=== PATIENT | male | born 1955 | race Caucasian/White ===

== ENCOUNTER 2019-10-25 10:56 | Outpatient (CLI) | payer MEDICARE, OTHER, SELFPAY ==
[2019-10-25 11:48] LABS: Basophils % 0.4 %; Eosinophils % 1.5 %; Hematocrit 36.2 % (42.0-52.0); Hemoglobin 11.9 g/dL (11.7-16.6); Lymphocytes # 0.6 10^3/uL (0.8-4.8); Lymphocytes % 23.1 %; Mean Corpuscular HGB Conc 32.9 g/dL (30.0-36.0); Mean Corpuscular Hemoglobin 31.7 pg (28.0-34.0); Mean Corpuscular Volume 96.5 fL (80-94); Mean Platelet Volume 12.7 fL (7.4-10.4); Monocytes # 0.3 10^3/uL (0.2-0.9); Monocytes % 10.8 %; Neutrophils # 1.7 10^3/uL (1.8-7.7); Neutrophils % 63.8 %; Nucleated Red Blood Cells % 0 %; Platelet Count 82 10^3/cmm (130-400); Red Blood Count 3.75 10^6/uL (4.1-5.3); Red Cell Distribution Width 14.6 % (12.1-15.1); White Blood Count 2.6 10^3/uL (4.0-10.0)
[2019-10-25 12:29] LABS: Alanine Aminotransferase 10 U/L (0-41); Albumin Level 3.7 g/dL (3.5-5.2); Alkaline Phosphatase 87 IU/L (40-130); Anion Gap 16.7 (5-19); Aspartate Amino Transferase 28 U/L (0-40); Blood Urea Nitrogen 24 mg/dL (8-23); Calcium 9.4 mg/dL (8.5-10.5); Carbon Dioxide 23 mmol/L (22-29); Chloride 103 mmol/L (98-107); Globulin 2.7 g/dL (1.3-4.6); Glomerular Filtration Rate 43.6 mL/min (90-130); Glucose 130 mg/dL (65-115); Potassium 4.7 mmol/L (3.5-5.1); Sodium 138 mmol/L (136-145); Total Bilirubin 0.2 mg/dL (0.15-1.2); Total Protein 6.4 g/dL (6.6-8.7)
--- NOTE | 2019-10-25 16:40 | ONC FU_ITS ---
Dr. Samuel Patient Follow-Up Note Patient: Memo Sun Unit #: [id number]: [id number] Dicatated By: Oneal Samuel M.D.Date of Visit:Oct 25, 2019 Onc Med Follow-up/Prog Note Chief Complaint: Myeloma. History of Present Illness: This is a 64 year-old man with kappa light chain myeloma. He had presented in March 2016 with increasing pain in the lower back over a period of at least several months. He was evaluated with MRI of the lumbar spine on 04/08/2016. It showed posterior retropulsion of the L4 vertebral body by 6 mm. This appeared to be related to a pathologic fracture and soft tissue mass predominantly in the mid and posterior vertebral body. There was soft tissue in the ventral epidural space causing deformity and flattening of the ventral thecal sac. It appeared to extend over a length of 4.5 cm posterior to the L4 vertebral body with marked posterior displacement of the thecal sac. Tumor was noted to extend into the proximal pedicles bilaterally. 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 He was seen by Dr. Lunsford, and subsequent evaluation with CT of the lumbar spine showed virtual complete destruction of the L4 vertebral body. There was associated soft tissue mass extending posteriorly from the vertebral body into the ventral aspect of the epidural space compressing the thecal sac. This was felt to most likely represent neoplastic/metastatic process. His laboratory studies from 03/25/2016 included a CBC which showed hemoglobin decreased to 10.1 g with white blood cell count 9700 and platelet count 395,000. The red cell indices were normal. Chem profile showed a significantly elevated BUN and creatinine at 34 and 2.6 mg/dL with calculated GFR 25 mL/m. The alkaline phosphatase and the liver enzymes were normal. Albumin was normal at 3.7 g/dL with calculated serum globulin also normal at 3.3 g/dL. Calcium also normal at 9.7 mg/dL. I had seen him initially on 04/24/2016. CBC at that point showed hemoglobin down to 9.8 g with white blood cell count 12,700 and platelet count 418,000. BUN was up to 43 with creatinine 2.8 mg/dL. Protein electrophoresis showed a monoclonal paraprotein identified as free kappa light chain quantitating at 0.24 g/dL. The free light chain assay showed elevated kappa light chain at 10,960 mg/L with free lambda light chain 7.94 mg/L and elevated kappa/lambda ratio at 1380. The 24-hour urine showed a total protein excretion of 5994 mg, 93.7% of which was free kappa light chain. He underwent bone marrow aspiration/biopsy on 05/03/2016. The cellularity was 60%. Plasma cells were increased at 18%, and they were noted to exhibit atypical features. Iron stores were noted to be absent. The standard chromosome analysis was normal. The FISH panel for myeloma showed evidence of trisomy 5 and monosomy 13 (13q deletion). The findings were consistent with multiple myeloma. At that point, he had noted improvement in his back pain on low-dose steroid therapy. He was seen by Dr. Key for radiation to the area of involvement in the lumbar spine. He was given 4 days of high-dose dexamethasone. He completed radiation therapy on 05/23/2016 to a total dose of 2,400 cGy. During that time further laboratory analysis revealed a borderline low B12 level and elevated methylmalonic acid and homocysteine levels, consistent with B12 deficiency. He also had an episode of unconsciousness and possible seizure on 05/18/16. He began systemic therapy with cyclophosphamide, Velcade, and dexamethasone on 05/28/2016, and he also started B12 replacement. When he returned for his day 8 treatment his hemoglobin had dropped to 7.7 g with white blood cell count normal at 5100. The platelet count had dropped to 142,000. His creatinine had increased from 2.3 to 3.7 mg/dL and his serum calcium dropped to 7.5 mg/dL with albumin decreased to 2.7 g/dL. Further evaluation showed stable uric acid level at 7.4 mg/dL and normal phosphorus at 3.3 mg/dL. Nonetheless, it did appear to most likely represent some form of tumor lysis syndrome. He was given aggressive outpatient IV hydration. I did opt to hold day 8 cyclophosphamide, but he received both day 8 and day 11 Velcade and dexamethasone. His renal function stabilized, but he did require transfusion of 2 units of packed red blood cells. He began cycle 2 on 06/17/2016, and he was able to complete day 4 Velcade on 06/20/2016. At day 8 I did opt to put his treatment on hold due to declining performance status. However, repeat protein electrophoresis studies prior to starting the second cycle did show a significant decrease in the kappa free light chain, to 1244 mg/L compared to a pretreatment level of 10,960 mg/L. Repeat lumbar spine MRI performed on 07/23/16 showed unchanged L4 compression fracture, but with essentially complete resolution of the L4 posterior vertebral body cortex extension into the central canal and interval resolution of previously noted markedly severe L4-L5 central canal stenosis. There was residual mild central canal stenosis related to L4 compression fracture with posterior-superior vertebral body extension the central canal. He was seen for follow-up at [facility] on 07/30/2016. It was recommended that he complete 2 additional doses of Velcade prior to mobilization for stem cell transplant. These were administered by subcutaneous injection on 08/07/2016 and on 08/16/2016. He then returned to [facility] and he underwent high-dose melphalan with autologous stem cell transplant on 09/13/2016. He indicates that he was in the hospital for 15 days. His treatment was complicated by hypertension. I had seen him for a followup visit on 10/30/2016. He was still very weak following the transplant procedure, and he also complained of very poor appetite. At that point he was beginning to feel better. He was seen at [facility] on 12/20/2016 for his day 100 evaluation. At that point he restarted treatment with Revlimid and dexamethasone in combination with ixazomib. He then presented to the emergency room on 01/20/2017 with weakness and loose stools. He was found to have acute renal failure with creatinine increased to 2.7 mg/dL. His CBC showed hemoglobin adequate at 11.1 g with white blood cell count 3800 and platelet count 39,000. The ANC was 2900. He was admitted to the hospital. With hydration his renal function improved, but there was further decline in his blood counts with his ANC dropping to 400, hemoglobin to 8.1 g, and platelet count to 14,000. He did require platelet pheresis, but he recovered uneventfully. On his subsequent follow-up at [facility] he continued his treatment, but with omission of Revlimid and with a decrease in the ixazomib dosage to 3 mg weekly. As of March 2017 he completed his 4th cycle of treatment. Following his visit there in April 2017, he began maintenance ixazomib with the dosage increased to 4 mg weekly. His repeat bone marrow biopsy at that time showed no increase in plasma cells. His medical history is significant for pre-existing hypertension, and he had no other prior medical illnesses. He had smoked in the past, but he quit more than 25 years ago. INTERIM HISTORY: On 10/25/2017 he was admitted to the hospital with weakness and fever. There was no specific source determined other than he had some evidence of cellulitis in his right arm. He improved on empiric antibiotic coverage with Cipro/vancomycin, and he was discharged home on Augmentin. He then continued his maintenance therapy with weekly ixazomib on a 3 weeks on/1 week off schedule. He is seen for a scheduled visit. His main complaint is that a few weeks ago he had fallen on a ramp coming out of his house, apparently having slipped on the ice. He has no recollection of the event. He was taken to the [facility] emergency room, where he was treated and released. He had a follow-up head CT scan a week later, and that apparently was negative. He also complains that he has had pretty severe diarrhea with each of his last 3 doses of ixazomib. On 1 occasion he also had nausea/vomiting. He did try taking Imodium AD, but it helped only a little. He has not had much activity lately. ECOG score is 2. His appetite is about the same. His weight is down a few pounds. He has not had fever or night sweats. He has ongoing problems with his left ear. He does not complain of shortness of breath, cough, or chest pain. He has no complaints. He has no significant joint or bone pain. He is not having headache or dizziness. He still has numbness/tingling in his feet. Medications: Acyclovir 1 (400 mg) Tablet Oral b.i.d., Ixazomib Citrate (4 mg) Capsule Oral Take as Directed, Ondansetron HCl 1 (8 mg) Tablet Oral PRN Allergies: Bactrim Review of Systems: Constitutional - His activity recently has been limited. His appetite is OK. His weight is down a few pounds. No fever, chills, hot flashes, or night sweats. ECOG score is 2, ENMT - He has sinus congestion/drainage. No mouth sores. No sore throat or difficulty swallowing. He has trouble with his left ear, Hematologic/Lymphatic - He bruises easily, Respiratory - No shortness of breath. No cough. No pleuritic pain or hemoptysis, Cardiovascular - No angina pain. No palpitations, Gastrointestinal - No heartburn or acid reflux. He has had pretty severe diarrhea with each of his last 3 doses of ixazomib. No blood in the stool or black stools, Genitourinary (M) - No dysuria or hematuria. No urinary frequency. No urgency or incontinence, Musculoskeletal - No joint or bone pain, Integumentary - No skin complications, Neurologic - No headache or dizziness. He has numbness and tingling in his feet, Psychiatric - No anxiety or depression. He does not sleep well at night. Vital Signs: Performed on Oct 25, 2019 12:49 Height - 71.00 in Weight - 159.6 lbs (LOW) BSA - 1.92 sq.m BMI - 22.26 Temperature - 97.9 F (LOW) Pulse - 70 /min Respiration - 18 /min BP - 121/76 mm(hg) O2 Sat - 100 % Pain - 0 Physical Examination: Constitutional - He still looks a little bit weak generally, Eyes - Sclerae nonicteric. Conjunctivae clear, ENMT - No lesions noted in the oral cavity, Hematologic/Lymphatic - No cervical, clavicular, or axillary adenopathy, Respiratory - Lungs sound clear, Cardiovascular - Heart rhythm is regular. There is no murmur, gallop, or rub noted, Abdomen - Soft. Liver and spleen are not enlarged. There is no abdominal mass or ascites noted and there is no inguinal adenopathy, Extremities - No edema, Neurologic - No focal neurologic deficits noted. Lab/Imaging: Test performed on Oct 25, 2019 11:30 Sodium 138 mmol/L Potassium 4.7 mmol/L Chloride 103 mmol/L CO2 23 mmol/L Anion Gap 16.7 BUN 24 mg/dL Creatinine 1.6 mg/dL Cr Clearance (Est) 47.8700 mL/min eGFR 43.6 mL/min Glucose 130 mg/dL Calcium 9.4 mg/dL Protein, Total 6.4 g/dL Albumin 3.7 g/dL Globulin 2.7 g/dL Bilirubin, Total 0.2 mg/dL ALT (SGPT) 10 U/L AST (SGOT) 28 U/L Alkaline Phosphatase 87 IU/L WBC 2.6 10 3/uL RBC 3.75 10 6/uL HGB 11.9 g/dL HCT 36.2 % MCV 96.5 fL MCH 31.7 pg MCHC 32.9 g/dL RDW 14.6 % Platelet Count 82 10 3/cmm MPV 12.7 fL Neutrophils 1.7 10 3/uL Lymphocytes 0.6 10 3/uL Monocytes 0.3 10 3/uL Eosinophils 0.0 10 3/uL Basophils 0.0 10 3/uL Neutrophil % 63.8 % Lymphocyte % 23.1 % Monocyte % 10.8 % Eosinophil % 1.5 % Basophils % 0.4 % Impression: 1. Patient with kappa light chain myeloma, stage III, initially diagnosed in April 2016. 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 He also had anemia and impaired renal function. Bone marrow aspiration/biopsy on 05/03/2016 showed 18% plasma cells with trisomy 5 and 13q deletion by FISH. 2. He received 4 days of high dose dexamethasone and he was given radiation to the lumbar spine, completed 05/23/2016 to 2400 cGy. 3. He also had evidence of B12 deficiency with low normal B12 level and elevated homocysteine and methylmalonic acid levels. 4. He had pre-existing hypertension. 5. He began systemic therapy with cyclophosphamide/Velcade/dexamethasone on 05/28/2016. His first cycle was complicated by an apparent tumor lysis syndrome which included worsening anemia and renal function together with hypocalcemia and hypoalbuminemia. His day 8 cyclophosphamide was withheld, and he did require transfusion of 2 U of packed red blood cells. 6. During subsequent follow-up he did show some improvement in his renal function, though it had not recovered to baseline. He was able to continue with cycle 2 of cyclophosphamide/Velcade/dexamethasone on 06/17/2016. His treatment was put on hold at day 8 of cycle 2 due to declining performance status. His repeat protein studies, though, did show a significant response to the chemotherapy. 7. He was given 2 additional doses of weekly Velcade, the second on 08/16/2016. He then returned to [facility] and he underwent high-dose melphalan/stem cell transplant on 09/13/2016. 8. He had a somewhat difficult and prolonged recovery following his stem cell transplant procedure. He was seen at [facility] for his day 100 follow-up visit on 12/20/2016. He then restarted treatment with Revlimid and dexamethasone in combination with ixazomib, apparently in the context of a clinical trial. His first cycle of treatment with the ixazamid, Revlimid, dexamethasone was complicated by grade 2 anemia, grade 4 neutropenia, and grade 3 thrombocytopenia, but without fever or bleeding. He also had diarrhea with dehydration and acute renal failure. His creatinine returned to baseline following IV hydration. He did receive a platelet pheresis. He had an uneventful recovery. He then continued treatment with omission of Revlimid and with decrease in his ixazomib dosage to 3 mg weekly. As of March 2017 he had completed 4 cycles of treatment. Following his visit at [facility] in April 2017 he began maintenance ixazomib with the dosage escalated to 4 mg weekly. In October 2017 he had a hospitalization with a febrile illness, possibly due to cellulitis. He recovered uneventfully. He has since then continued maintenance ixazomib administered weekly on a 3 weeks on/1 week off schedule. During follow-up he has remained mildly anemic and he has persistent chronic kidney disease. Overall, though, he has been doing well clinically with no obvious progression of the myeloma. However, with each of his last 3 doses of ixazomib he has had pretty severe diarrhea, and he had only limited benefit taking Imodium AD. He also has had a significant decline in his blood counts. He had a recent fall with head injury, but he seems to have had an uneventful recovery and his head CT was reportedly negative. Plan: He will continue his maintenance ixazomib, but I am going to check with [facility] regarding any recommendations for dose adjustment. He is due for follow-up there on 11/30/2019, and he will tentatively be scheduled for a 6-week interval return visit here. Signed By: Oneal Samuel M.D. <<Signature on File>>
[2019-10-25 17:23] LABS: Immunoglobulin IGA 93 mg/dL (70-400); Immunoglobulin IGG 894 mg/dL (700-1600)
[2019-10-25 17:40] LABS: Immunoglobulin IGM < 25 mg/dL (40-230)
== END 2019-10-25 10:57 | disposition home or self-care (01) ==
LOC: ONCMED 10:56
PROVIDERS: Family Provider Family Medicine; PCP Family Medicine; Visit Provider Internal Medicine Medical Oncology
DX: C90.00 Multiple myeloma not having achieved remission (principal); I10 Essential (primary) hypertension; Z94.84 Stem cells transplant status; Z79.899 Other long term (current) drug therapy; Z87.891 Personal history of nicotine dependence; Z91.81 History of falling; Z92.3 Personal history of irradiation; Z92.21 Personal history of antineoplastic chemotherapy
CPT/HCPCS: 36591; 80053; 82784; 85025; 99214

== ENCOUNTER → 2019-10-26 14:19 | Outpatient (BNVA) | payer MEDICARE, OTHER, SELFPAY | PROVIDERS: Family Provider Family Medicine; PCP Family Medicine; Visit Provider Internal Medicine Medical Oncology | DX: C79.51 Secondary malignant neoplasm of bone (principal); C79.10 Secondary malignant neoplasm of unspecified urinary organs; Z79.51 Long term (current) use of inhaled steroids | CPT/HCPCS: 83883; 84155; 84165 ==

== ENCOUNTER 2019-11-15 13:12 | Outpatient (CLI) | payer MEDICARE, OTHER, SELFPAY | END 2019-11-15 13:13 | disposition home or self-care (01) | LOC: ONCMED 13:16 | PROVIDERS: Family Provider Family Medicine; PCP Family Medicine; Visit Provider Internal Medicine Medical Oncology | DX: Z45.2 Encounter for adjustment and management of vascular access device (principal) | CPT/HCPCS: 96523 ==

== ENCOUNTER 2019-12-21 13:06 | Outpatient (CLI) | payer MEDICARE, OTHER, SELFPAY | END 2019-12-21 13:07 | disposition home or self-care (01) | LOC: ONCMED 13:06 | PROVIDERS: Family Provider Family Medicine; PCP Family Medicine; Visit Provider Internal Medicine Medical Oncology | DX: Z45.2 Encounter for adjustment and management of vascular access device (principal) | CPT/HCPCS: 96523 ==

== ENCOUNTER 2020-01-11 11:36 | Outpatient (CLI) | payer MEDICARE, OTHER, SELFPAY ==
[2020-01-11 12:08] LABS: Basophils % 0.6 %; Eosinophils # 0.1 10^3/uL (0.0-0.8); Hematocrit 35.3 % (42.0-52.0); Hemoglobin 11.3 g/dL (11.7-16.6); Lymphocytes # 0.8 10^3/uL (0.8-4.8); Lymphocytes % 22.4 %; Mean Corpuscular Hemoglobin 31.1 pg (28.0-34.0); Mean Corpuscular Volume 97.2 fL (80-94); Monocytes # 0.4 10^3/uL (0.2-0.9); Monocytes % 11.3 %; Neutrophils # 2.2 10^3/uL (1.8-7.7); Neutrophils % 63.4 %; Nucleated Red Blood Cells % 0 %; Platelet Count 99 10^3/cmm (130-400); Red Blood Count 3.63 10^6/uL (4.1-5.3); Red Cell Distribution Width 14.7 % (12.1-15.1); White Blood Count 3.5 10^3/uL (4.0-10.0)
[2020-01-11 12:25] LABS: Alanine Aminotransferase 10 U/L (0-41); Albumin Level 4.1 g/dL (3.5-5.2); Alkaline Phosphatase 85 IU/L (40-130); Anion Gap 16.6 (5-19); Aspartate Amino Transferase 23 U/L (0-40); Blood Urea Nitrogen 33 mg/dL (8-23); Calcium 8.7 mg/dL (8.5-10.5); Carbon Dioxide 22 mmol/L (22-29); Chloride 105 mmol/L (98-107); Globulin 2.8 g/dL (1.3-4.6); Glomerular Filtration Rate 55.4 mL/min (90-130); Glucose 93 mg/dL (65-115); Osmolality Calculated 285 mOsm/kg (285-295); Potassium 4.6 mmol/L (3.5-5.1); Sodium 139 mmol/L (136-145); Total Bilirubin 0.2 mg/dL (0.15-1.2); Total Protein 6.9 g/dL (6.6-8.7)
--- NOTE | 2020-01-12 14:00 | ONC FU_ITS ---
Dr. Samuel Patient Follow-Up Note Patient: Memo Sun Unit #: [id number]: [id number] Dicatated By: Oneal Samuel M.D.Date of Visit:Jan 11, 2020 Onc Med Follow-up/Prog Note Chief Complaint: Myeloma. History of Present Illness: This is a 64 year-old man with kappa light chain myeloma. He had presented in March 2016 with increasing pain in the lower back over a period of at least several months. He was evaluated with MRI of the lumbar spine on 04/08/2016. It showed posterior retropulsion of the L4 vertebral body by 6 mm. This appeared to be related to a pathologic fracture and soft tissue mass predominantly in the mid and posterior vertebral body. There was soft tissue in the ventral epidural space causing deformity and flattening of the ventral thecal sac. It appeared to extend over a length of 4.5 cm posterior to the L4 vertebral body with marked posterior displacement of the thecal sac. Tumor was noted to extend into the proximal pedicles bilaterally. 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 He was seen by Dr. Lunsford, and subsequent evaluation with CT of the lumbar spine showed virtual complete destruction of the L4 vertebral body. There was associated soft tissue mass extending posteriorly from the vertebral body into the ventral aspect of the epidural space compressing the thecal sac. This was felt to most likely represent neoplastic/metastatic process. His laboratory studies from 03/25/2016 included a CBC which showed hemoglobin decreased to 10.1 g with white blood cell count 9700 and platelet count 395,000. The red cell indices were normal. Chem profile showed a significantly elevated BUN and creatinine at 34 and 2.6 mg/dL with calculated GFR 25 mL/m. The alkaline phosphatase and the liver enzymes were normal. Albumin was normal at 3.7 g/dL with calculated serum globulin also normal at 3.3 g/dL. Calcium also normal at 9.7 mg/dL. I had seen him initially on 04/24/2016. CBC at that point showed hemoglobin down to 9.8 g with white blood cell count 12,700 and platelet count 418,000. BUN was up to 43 with creatinine 2.8 mg/dL. Protein electrophoresis showed a monoclonal paraprotein identified as free kappa light chain quantitating at 0.24 g/dL. The free light chain assay showed elevated kappa light chain at 10,960 mg/L with free lambda light chain 7.94 mg/L and elevated kappa/lambda ratio at 1380. The 24-hour urine showed a total protein excretion of 5994 mg, 93.7% of which was free kappa light chain. He underwent bone marrow aspiration/biopsy on 05/03/2016. The cellularity was 60%. Plasma cells were increased at 18%, and they were noted to exhibit atypical features. Iron stores were noted to be absent. The standard chromosome analysis was normal. The FISH panel for myeloma showed evidence of trisomy 5 and monosomy 13 (13q deletion). The findings were consistent with multiple myeloma. At that point, he had noted improvement in his back pain on low-dose steroid therapy. He was seen by Dr. Key for radiation to the area of involvement in the lumbar spine. He was given 4 days of high-dose dexamethasone. He completed radiation therapy on 05/23/2016 to a total dose of 2,400 cGy. During that time further laboratory analysis revealed a borderline low B12 level and elevated methylmalonic acid and homocysteine levels, consistent with B12 deficiency. He also had an episode of unconsciousness and possible seizure on 05/18/16. He began systemic therapy with cyclophosphamide, Velcade, and dexamethasone on 05/28/2016, and he also started B12 replacement. When he returned for his day 8 treatment his hemoglobin had dropped to 7.7 g with white blood cell count normal at 5100. The platelet count had dropped to 142,000. His creatinine had increased from 2.3 to 3.7 mg/dL and his serum calcium dropped to 7.5 mg/dL with albumin decreased to 2.7 g/dL. Further evaluation showed stable uric acid level at 7.4 mg/dL and normal phosphorus at 3.3 mg/dL. Nonetheless, it did appear to most likely represent some form of tumor lysis syndrome. He was given aggressive outpatient IV hydration. I did opt to hold day 8 cyclophosphamide, but he received both day 8 and day 11 Velcade and dexamethasone. His renal function stabilized, but he did require transfusion of 2 units of packed red blood cells. He began cycle 2 on 06/17/2016, and he was able to complete day 4 Velcade on 06/20/2016. At day 8 I did opt to put his treatment on hold due to declining performance status. However, repeat protein electrophoresis studies prior to starting the second cycle did show a significant decrease in the kappa free light chain, to 1244 mg/L compared to a pretreatment level of 10,960 mg/L. Repeat lumbar spine MRI performed on 07/23/16 showed unchanged L4 compression fracture, but with essentially complete resolution of the L4 posterior vertebral body cortex extension into the central canal and interval resolution of previously noted markedly severe L4-L5 central canal stenosis. There was residual mild central canal stenosis related to L4 compression fracture with posterior-superior vertebral body extension the central canal. He was seen for follow-up at [facility] on 07/30/2016. It was recommended that he complete 2 additional doses of Velcade prior to mobilization for stem cell transplant. These were administered by subcutaneous injection on 08/07/2016 and on 08/16/2016. He then returned to [facility] and he underwent high-dose melphalan with autologous stem cell transplant on 09/13/2016. He indicates that he was in the hospital for 15 days. His treatment was complicated by hypertension. I had seen him for a followup visit on 10/30/2016. He was still very weak following the transplant procedure, and he also complained of very poor appetite. At that point he was beginning to feel better. He was seen at [facility] on 12/20/2016 for his day 100 evaluation. At that point he restarted treatment with Revlimid and dexamethasone in combination with ixazomib. He then presented to the emergency room on 01/20/2017 with weakness and loose stools. He was found to have acute renal failure with creatinine increased to 2.7 mg/dL. His CBC showed hemoglobin adequate at 11.1 g with white blood cell count 3800 and platelet count 39,000. The ANC was 2900. He was admitted to the hospital. With hydration his renal function improved, but there was further decline in his blood counts with his ANC dropping to 400, hemoglobin to 8.1 g, and platelet count to 14,000. He did require platelet pheresis, but he recovered uneventfully. On his subsequent follow-up at [facility] he continued his treatment, but with omission of Revlimid and with a decrease in the ixazomib dosage to 3 mg weekly. As of March 2017 he completed his 4th cycle of treatment. Following his visit there in April 2017, he began maintenance ixazomib with the dosage increased to 4 mg weekly. His repeat bone marrow biopsy at that time showed no increase in plasma cells. His medical history is significant for pre-existing hypertension, and he had no other prior medical illnesses. He had smoked in the past, but he quit more than 25 years ago. INTERIM HISTORY: On 10/25/2017 he was admitted to the hospital with weakness and fever. There was no specific source determined other than he had some evidence of cellulitis in his right arm. He improved on empiric antibiotic coverage with Cipro/vancomycin, and he was discharged home on Augmentin. He then continued his maintenance therapy with weekly ixazomib on a 3 weeks on/1 week off schedule. He is seen for a scheduled visit. He has been feeling all right. He says he sometimes feels cold, but he has not had fever or night sweats. His energy has been okay. He does have somewhat limited activity. ECOG score is 1. His appetite is like always, but he has lost a little more weight. He has not had sore mouth or throat. He complains that his left ear still feels clogged, though it is intermittent. He has seen 2 different ENT physicians. He has no shortness of breath, cough, or chest pain. He has no GI or complaints. He has just very occasional back pain now. He has numbness/tingling in his feet, which is chronic. Medications: Acyclovir 1 (400 mg) Tablet Oral b.i.d., Ixazomib Citrate (4 mg) Capsule Oral Take as Directed, Ondansetron HCl 1 (8 mg) Tablet Oral PRN Allergies: Bactrim and revlimid. Review of Systems: Constitutional - His energy level is good. He has been doing some outside work. His appetite is good but his weight is down a few pounds from last visit. He is drinking a supplemental drink daily. No fever, chills, hot flashes, or night sweats. ECOG score is 1, ENMT - He has chronic sinus drainage. No mouth sores. No sore throat or difficulty swallowing. He still has a fullness feeling in his left ear that comes and goes, Hematologic/Lymphatic - He bruises easily, Respiratory - No shortness of breath. No cough. No pleuritic pain or hemoptysis, Cardiovascular - No angina pain. No palpitations, Gastrointestinal - No nausea or vomiting. No heartburn or acid reflux. No diarrhea or constipation. No blood in the stool or black stools, Genitourinary (M) - No dysuria or hematuria. No urinary frequency. No urgency or incontinence, Musculoskeletal - He has just very occasional back pain, Integumentary - No skin complications, Neurologic - No headache or dizziness. He has some numbness in his feet, Psychiatric - No anxiety or depression. No insomnia. Vital Signs: Performed on Jan 11, 2020 13:34 Height - 71.00 in Weight - 156.2 lbs (LOW) BSA - 1.90 sq.m BMI - 21.79 Temperature - 97.6 F (LOW) Pulse - 74 /min Respiration - 18 /min BP - 122/76 mm(hg) O2 Sat - 100 % Pain - 0 Physical Examination: Constitutional - He looks pretty good generally, Eyes - Sclerae nonicteric. Conjunctivae clear, ENMT - No lesions noted in the oral cavity, Hematologic/Lymphatic - No cervical, clavicular, or axillary adenopathy, Respiratory - Lungs sound clear, Cardiovascular - Heart rhythm is regular. There is no murmur, gallop, or rub noted, Abdomen - Soft. Liver and spleen are not enlarged. There is no abdominal mass or ascites noted and there is no inguinal adenopathy, Extremities - No edema. He has chronic purpura, Neurologic - No focal neurologic deficits noted. Lab/Imaging: Test performed on Jan 11, 2020 11:45 Sodium 139 mmol/L Potassium 4.6 mmol/L Chloride 105 mmol/L CO2 22 mmol/L Anion Gap 16.6 BUN 33 mg/dL Creatinine 1.3 mg/dL Cr Clearance (Est) 58.9200 mL/min eGFR 55.4 mL/min Glucose 93 mg/dL Calcium 8.7 mg/dL Protein, Total 6.9 g/dL Albumin 4.1 g/dL Globulin 2.8 g/dL Bilirubin, Total 0.2 mg/dL ALT (SGPT) 10 U/L AST (SGOT) 23 U/L Alkaline Phosphatase 85 IU/L WBC 3.5 10 3/uL RBC 3.63 10 6/uL HGB 11.3 g/dL HCT 35.3 % MCV 97.2 fL MCH 31.1 pg MCHC 32.0 g/dL RDW 14.7 % Platelet Count 99 10 3/cmm MPV 12.0 fL Neutrophils 2.2 10 3/uL Lymphocytes 0.8 10 3/uL Monocytes 0.4 10 3/uL Eosinophils 0.1 10 3/uL Basophils 0.0 10 3/uL Neutrophil % 63.4 % Lymphocyte % 22.4 % Monocyte % 11.3 % Eosinophil % 2.0 % Basophils % 0.6 % Impression: 1. Patient with kappa light chain myeloma, stage III, initially diagnosed in April 2016. 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 He also had anemia and impaired renal function. Bone marrow aspiration/biopsy on 05/03/2016 showed 18% plasma cells with trisomy 5 and 13q deletion by FISH. 2. He received 4 days of high dose dexamethasone and he was given radiation to the lumbar spine, completed 05/23/2016 to 2400 cGy. 3. He also had evidence of B12 deficiency with low normal B12 level and elevated homocysteine and methylmalonic acid levels. 4. He had pre-existing hypertension. 5. He began systemic therapy with cyclophosphamide/Velcade/dexamethasone on 05/28/2016. His first cycle was complicated by an apparent tumor lysis syndrome which included worsening anemia and renal function together with hypocalcemia and hypoalbuminemia. His day 8 cyclophosphamide was withheld, and he did require transfusion of 2 U of packed red blood cells. 6. During subsequent follow-up he did show some improvement in his renal function, though it had not recovered to baseline. He was able to continue with cycle 2 of cyclophosphamide/Velcade/dexamethasone on 06/17/2016. His treatment was put on hold at day 8 of cycle 2 due to declining performance status. His repeat protein studies, though, did show a significant response to the chemotherapy. 7. He was given 2 additional doses of weekly Velcade, the second on 08/16/2016. He then returned to [facility] and he underwent high-dose melphalan/stem cell transplant on 09/13/2016. 8. He had a somewhat difficult and prolonged recovery following his stem cell transplant procedure. He was seen at [facility] for his day 100 follow-up visit on 12/20/2016. He then restarted treatment with Revlimid and dexamethasone in combination with ixazomib, apparently in the context of a clinical trial. His first cycle of treatment with the ixazamid, Revlimid, dexamethasone was complicated by grade 2 anemia, grade 4 neutropenia, and grade 3 thrombocytopenia, but without fever or bleeding. He also had diarrhea with dehydration and acute renal failure. His creatinine returned to baseline following IV hydration. He did receive a platelet pheresis. He had an uneventful recovery. He then continued treatment with omission of Revlimid and with decrease in his ixazomib dosage to 3 mg weekly. As of March 2017 he had completed 4 cycles of treatment. Following his visit at [facility] in April 2017 he began maintenance ixazomib with the dosage escalated to 4 mg weekly. In October 2017 he had a hospitalization with a febrile illness, possibly due to cellulitis. He recovered uneventfully. He then continued maintenance ixazomib administered weekly on a 3 weeks on/1 week off schedule. He remained mildly anemic and he had persistent chronic kidney disease. During his recent follow-up he has continued to have somewhat limited activity tolerance and has been losing weight gradually. He had been having diarrhea with the ixazomib, but that seems to have resolved. His blood counts are still a little low, but adequate. His clinical status otherwise appears stable. Thus far there has been no evidence of progression of the myeloma. Plan: He will continue his maintenance ixazomib at the same dosage. He is due for follow-up at [facility] on 02/22/2020. He will be scheduled for a 6-week interval return visit here. Signed By: Oneal Samuel M.D. <<Signature on File>>
== END 2020-01-11 11:37 | disposition home or self-care (01) ==
LOC: ONCMED 11:36
PROVIDERS: Family Provider Family Medicine; PCP Family Medicine; Visit Provider Internal Medicine Medical Oncology
DX: C90.00 Multiple myeloma not having achieved remission (principal); E53.8 Deficiency of other specified B group vitamins; I10 Essential (primary) hypertension; N18.9 Chronic kidney disease, unspecified; Z92.21 Personal history of antineoplastic chemotherapy; Z79.899 Other long term (current) drug therapy; Z94.84 Stem cells transplant status
CPT/HCPCS: 36591; 80053; 85025; 99214

== ENCOUNTER 2020-02-01 09:00 | Outpatient (CLI) | payer MEDICARE, OTHER, SELFPAY | END 2020-02-01 09:01 | disposition home or self-care (01) | LOC: ONCMED 09:04 | PROVIDERS: PCP Family Medicine; Visit Provider Internal Medicine Medical Oncology | DX: Z45.2 Encounter for adjustment and management of vascular access device (principal); C90.00 Multiple myeloma not having achieved remission; C79.51 Secondary malignant neoplasm of bone | CPT/HCPCS: 96523 ==

== ENCOUNTER 2020-03-14 08:20 | Outpatient (CLI) | payer MEDICARE, OTHER, SELFPAY ==
[2020-03-14 08:58] LABS: Basophils % 0.7 %; Eosinophils # 0.1 10^3/uL (0.0-0.8); Hematocrit 35.7 % (42.0-52.0); Hemoglobin 11.6 g/dL (11.7-16.6); Lymphocytes % 24.2 %; Mean Corpuscular HGB Conc 32.5 g/dL (30.0-36.0); Mean Corpuscular Hemoglobin 32.7 pg (28.0-34.0); Mean Corpuscular Volume 100.6 fL (80-94); Monocytes # 0.4 10^3/uL (0.2-0.9); Neutrophils # 2.6 10^3/uL (1.8-7.7); Neutrophils % 62.9 %; Nucleated Red Blood Cells % 0 %; Platelet Count 155 10^3/cmm (130-400); Red Blood Count 3.55 10^6/uL (4.1-5.3); Red Cell Distribution Width 15.4 % (12.1-15.1); White Blood Count 4.1 10^3/uL (4.0-10.0)
[2020-03-14 09:14] LABS: Alanine Aminotransferase 12 U/L (0-41); Albumin Level 4.3 g/dL (3.5-5.2); Alkaline Phosphatase 85 IU/L (40-130); Anion Gap 15.9 (5-19); Aspartate Amino Transferase 21 U/L (0-40); Blood Urea Nitrogen 36 mg/dL (8-23); Calcium 9.3 mg/dL (8.5-10.5); Carbon Dioxide 23 mmol/L (22-29); Chloride 105 mmol/L (98-107); Globulin 2.4 g/dL (1.3-4.6); Glucose 92 mg/dL (65-115); Osmolality Calculated 285 mOsm/kg (285-295); Potassium 4.9 mmol/L (3.5-5.1); Sodium 139 mmol/L (136-145); Total Bilirubin 0.2 mg/dL (0.15-1.2); Total Protein 6.7 g/dL (6.6-8.7)
--- NOTE | 2020-03-17 10:23 | ONC FU_ITS ---
Dr. Samuel Patient Follow-Up Note Patient: Memo Sun Unit #: [id number]: [id number] Dicatated By: Oneal Samuel M.D.Date of Visit:Mar 14, 2020 Onc Med Follow-up/Prog Note Chief Complaint: Myeloma. History of Present Illness: This is a 64 year-old man with kappa light chain myeloma. He had presented in March 2016 with increasing pain in the lower back over a period of at least several months. He was evaluated with MRI of the lumbar spine on 04/08/2016. It showed posterior retropulsion of the L4 vertebral body by 6 mm. This appeared to be related to a pathologic fracture and soft tissue mass predominantly in the mid and posterior vertebral body. There was soft tissue in the ventral epidural space causing deformity and flattening of the ventral thecal sac. It appeared to extend over a length of 4.5 cm posterior to the L4 vertebral body with marked posterior displacement of the thecal sac. Tumor was noted to extend into the proximal pedicles bilaterally. 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 He was seen by Dr. Lunsford, and subsequent evaluation with CT of the lumbar spine showed virtual complete destruction of the L4 vertebral body. There was associated soft tissue mass extending posteriorly from the vertebral body into the ventral aspect of the epidural space compressing the thecal sac. This was felt to most likely represent neoplastic/metastatic process. His laboratory studies from 03/25/2016 included a CBC which showed hemoglobin decreased to 10.1 g with white blood cell count 9700 and platelet count 395,000. The red cell indices were normal. Chem profile showed a significantly elevated BUN and creatinine at 34 and 2.6 mg/dL with calculated GFR 25 mL/m. The alkaline phosphatase and the liver enzymes were normal. Albumin was normal at 3.7 g/dL with calculated serum globulin also normal at 3.3 g/dL. Calcium also normal at 9.7 mg/dL. I had seen him initially on 04/24/2016. CBC at that point showed hemoglobin down to 9.8 g with white blood cell count 12,700 and platelet count 418,000. BUN was up to 43 with creatinine 2.8 mg/dL. Protein electrophoresis showed a monoclonal paraprotein identified as free kappa light chain quantitating at 0.24 g/dL. The free light chain assay showed elevated kappa light chain at 10,960 mg/L with free lambda light chain 7.94 mg/L and elevated kappa/lambda ratio at 1380. The 24-hour urine showed a total protein excretion of 5994 mg, 93.7% of which was free kappa light chain. He underwent bone marrow aspiration/biopsy on 05/03/2016. The cellularity was 60%. Plasma cells were increased at 18%, and they were noted to exhibit atypical features. Iron stores were noted to be absent. The standard chromosome analysis was normal. The FISH panel for myeloma showed evidence of trisomy 5 and monosomy 13 (13q deletion). The findings were consistent with multiple myeloma. At that point, he had noted improvement in his back pain on low-dose steroid therapy. He was seen by Dr. Key for radiation to the area of involvement in the lumbar spine. He was given 4 days of high-dose dexamethasone. He completed radiation therapy on 05/23/2016 to a total dose of 2,400 cGy. During that time further laboratory analysis revealed a borderline low B12 level and elevated methylmalonic acid and homocysteine levels, consistent with B12 deficiency. He also had an episode of unconsciousness and possible seizure on 05/18/16. He began systemic therapy with cyclophosphamide, Velcade, and dexamethasone on 05/28/2016, and he also started B12 replacement. When he returned for his day 8 treatment his hemoglobin had dropped to 7.7 g with white blood cell count normal at 5100. The platelet count had dropped to 142,000. His creatinine had increased from 2.3 to 3.7 mg/dL and his serum calcium dropped to 7.5 mg/dL with albumin decreased to 2.7 g/dL. Further evaluation showed stable uric acid level at 7.4 mg/dL and normal phosphorus at 3.3 mg/dL. Nonetheless, it did appear to most likely represent some form of tumor lysis syndrome. He was given aggressive outpatient IV hydration. I did opt to hold day 8 cyclophosphamide, but he received both day 8 and day 11 Velcade and dexamethasone. His renal function stabilized, but he did require transfusion of 2 units of packed red blood cells. He began cycle 2 on 06/17/2016, and he was able to complete day 4 Velcade on 06/20/2016. At day 8 I did opt to put his treatment on hold due to declining performance status. However, repeat protein electrophoresis studies prior to starting the second cycle did show a significant decrease in the kappa free light chain, to 1244 mg/L compared to a pretreatment level of 10,960 mg/L. Repeat lumbar spine MRI performed on 07/23/16 showed unchanged L4 compression fracture, but with essentially complete resolution of the L4 posterior vertebral body cortex extension into the central canal and interval resolution of previously noted markedly severe L4-L5 central canal stenosis. There was residual mild central canal stenosis related to L4 compression fracture with posterior-superior vertebral body extension the central canal. He was seen for follow-up at [facility] on 07/30/2016. It was recommended that he complete 2 additional doses of Velcade prior to mobilization for stem cell transplant. These were administered by subcutaneous injection on 08/07/2016 and on 08/16/2016. He then returned to [facility] and he underwent high-dose melphalan with autologous stem cell transplant on 09/13/2016. He indicates that he was in the hospital for 15 days. His treatment was complicated by hypertension. I had seen him for a followup visit on 10/30/2016. He was still very weak following the transplant procedure, and he also complained of very poor appetite. At that point he was beginning to feel better. He was seen at [facility] on 12/20/2016 for his day 100 evaluation. At that point he restarted treatment with Revlimid and dexamethasone in combination with ixazomib. He then presented to the emergency room on 01/20/2017 with weakness and loose stools. He was found to have acute renal failure with creatinine increased to 2.7 mg/dL. His CBC showed hemoglobin adequate at 11.1 g with white blood cell count 3800 and platelet count 39,000. The ANC was 2900. He was admitted to the hospital. With hydration his renal function improved, but there was further decline in his blood counts with his ANC dropping to 400, hemoglobin to 8.1 g, and platelet count to 14,000. He did require platelet pheresis, but he recovered uneventfully. On his subsequent follow-up at [facility] he continued his treatment, but with omission of Revlimid and with a decrease in the ixazomib dosage to 3 mg weekly. As of March 2017 he completed his 4th cycle of treatment. Following his visit there in April 2017, he began maintenance ixazomib with the dosage increased to 4 mg weekly. His repeat bone marrow biopsy at that time showed no increase in plasma cells. His medical history is significant for pre-existing hypertension, and he had no other prior medical illnesses. He had smoked in the past, but he quit more than 25 years ago. INTERIM HISTORY: On 10/25/2017 he was admitted to the hospital with weakness and fever. There was no specific source determined other than he had some evidence of cellulitis in his right arm. He improved on empiric antibiotic coverage with Cipro/vancomycin, and he was discharged home on Augmentin. He then continued his maintenance therapy with weekly ixazomib on a 3 weeks on/1 week off schedule. He is seen for a scheduled visit. He has been feeling pretty good generally. He says his energy is good. He is doing light work. ECOG score is 1. Appetite also is good. His weight is up a few pounds. He has no fever or night sweats. He has had some visual problems following an injury he sustained in a fall. He has been told by the aircraft part assembler that is due to muscle palsy. He has some allergy related sinus symptoms, and he continues to have pain in his left ear. He does not complain of shortness of breath, cough, or chest pain. He has no GI or complaints. He clearly has no significant joint or bone pain. He says his back is not bothering him. He does not complain of headache or dizziness. He still has some numbness in his feet. Medications: Acyclovir 1 (400 mg) Tablet Oral b.i.d., Ixazomib Citrate (4 mg) Capsule Oral Take as Directed, Ondansetron HCl 1 (8 mg) Tablet Oral PRN Allergies: Bactrim and revlimid. Review of Systems: Constitutional - His energy is pretty good. He is able to do yard work. Appetite is good and weight is stable. No fever, night sweats, or hot flashes. ECOG score is 1, Eyes - He has had altered vision following an injury last fall, ENMT - He has allergy related sinus symptoms and left ear pain. No mouth sores. No sore throat or difficulty swallowing, Hematologic/Lymphatic - He has some bruising, Respiratory - No shortness of breath. No cough. No pleuritic pain or hemoptysis, Cardiovascular - No angina pain. No palpitations, Gastrointestinal - No nausea or vomiting. No heartburn or acid reflux. No diarrhea or constipation. No blood in the stool or black stools, Genitourinary (M) - No dysuria or hematuria. No urinary frequency. No urgency or incontinence, Musculoskeletal - He has no significant joint or bone pain. He says his back is not bothering him, Integumentary - No skin rash, Neurologic - No headache or dizziness. He has numbness in his feet. No other focal neurologic symptoms, Psychiatric - No anxiety or depression. No insomnia. Vital Signs: Performed on Mar 14, 2020 09:48 Height - 71.00 in Weight - 160.0 lbs (HIGH) BSA - 1.92 sq.m BMI - 22.32 Temperature - 98.1 F (LOW) Pulse - 79 /min Respiration - 18 /min BP - 145/72 mm(hg) (HIGH) O2 Sat - 99 % Pain - 0 Physical Examination: Constitutional - He looks pretty good generally, Eyes - Sclerae nonicteric. Conjunctivae clear, ENMT - No lesions noted in the oral cavity, Hematologic/Lymphatic - No cervical, clavicular, or axillary adenopathy, Respiratory - Lungs sound clear, Cardiovascular - Heart rhythm is regular. There is no murmur, gallop, or rub noted, Abdomen - Soft. Liver and spleen are not enlarged. There is no abdominal mass or ascites noted and there is no inguinal adenopathy, Extremities - No edema. He has chronic purpura on both arms, Neurologic - No focal neurologic deficits noted. Lab/Imaging: Test performed on Mar 14, 2020 08:43 Sodium 139 mmol/L Potassium 4.9 mmol/L Chloride 105 mmol/L CO2 23 mmol/L Anion Gap 15.9 BUN 36 mg/dL Creatinine 1.5 mg/dL Cr Clearance (Est) 51.0600 mL/min eGFR 47.0 mL/min Glucose 92 mg/dL Calcium 9.3 mg/dL Protein, Total 6.7 g/dL Albumin 4.3 g/dL Globulin 2.4 g/dL Bilirubin, Total 0.2 mg/dL ALT (SGPT) 12 U/L AST (SGOT) 21 U/L Alkaline Phosphatase 85 IU/L WBC 4.1 10 3/uL RBC 3.55 10 6/uL HGB 11.6 g/dL HCT 35.7 % MCV 100.6 fL MCH 32.7 pg MCHC 32.5 g/dL RDW 15.4 % Platelet Count 155 10 3/cmm MPV 11.0 fL Neutrophils 2.6 10 3/uL Lymphocytes 1.0 10 3/uL Monocytes 0.4 10 3/uL Eosinophils 0.1 10 3/uL Basophils 0.0 10 3/uL Neutrophil % 62.9 % Lymphocyte % 24.2 % Monocyte % 10.0 % Eosinophil % 2.0 % Basophils % 0.7 % NRBC % 0 % Impression: 1. Patient with kappa light chain myeloma, stage III, initially diagnosed in April 2016. 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 He also had anemia and impaired renal function. Bone marrow aspiration/biopsy on 05/03/2016 showed 18% plasma cells with trisomy 5 and 13q deletion by FISH. 2. He received 4 days of high dose dexamethasone and he was given radiation to the lumbar spine, completed 05/23/2016 to 2400 cGy. 3. He also had evidence of B12 deficiency with low normal B12 level and elevated homocysteine and methylmalonic acid levels. 4. He had pre-existing hypertension. 5. He began systemic therapy with cyclophosphamide/Velcade/dexamethasone on 05/28/2016. His first cycle was complicated by an apparent tumor lysis syndrome which included worsening anemia and renal function together with hypocalcemia and hypoalbuminemia. His day 8 cyclophosphamide was withheld, and he did require transfusion of 2 U of packed red blood cells. 6. During subsequent follow-up he did show some improvement in his renal function, though it had not recovered to baseline. He was able to continue with cycle 2 of cyclophosphamide/Velcade/dexamethasone on 06/17/2016. His treatment was put on hold at day 8 of cycle 2 due to declining performance status. His repeat protein studies, though, did show a significant response to the chemotherapy. 7. He was given 2 additional doses of weekly Velcade, the second on 08/16/2016. He then returned to [facility] and he underwent high-dose melphalan/stem cell transplant on 09/13/2016. 8. He had a somewhat difficult and prolonged recovery following his stem cell transplant procedure. He was seen at [facility] for his day 100 follow-up visit on 12/20/2016. He then restarted treatment with Revlimid and dexamethasone in combination with ixazomib, apparently in the context of a clinical trial. His first cycle of treatment with the ixazamid, Revlimid, dexamethasone was complicated by grade 2 anemia, grade 4 neutropenia, and grade 3 thrombocytopenia, but without fever or bleeding. He also had diarrhea with dehydration and acute renal failure. His creatinine returned to baseline following IV hydration. He did receive a platelet pheresis. He had an uneventful recovery. He then continued treatment with omission of Revlimid and with decrease in his ixazomib dosage to 3 mg weekly. As of March 2017 he had completed 4 cycles of treatment. Following his visit at [facility] in April 2017 he began maintenance ixazomib with the dosage escalated to 4 mg weekly. In October 2017 he had a hospitalization with a febrile illness, possibly due to cellulitis. He recovered uneventfully. He then continued maintenance ixazomib administered weekly on a 3 weeks on/1 week off schedule. He remained mildly anemic and he had persistent chronic kidney disease. During his recent follow-up he has continued to have somewhat limited activity tolerance. He had been losing weight, but that has now stabilized. He appears to be tolerating treatment well now. His blood counts have been a little low, but adequate. Overall he has been doing well clinicall, thus far with no evidence of progression of the myeloma. Plan: He will continue his maintenance ixazomib at the same dosage. He is now on a 24-week follow-up schedule at [facility], so he will return here for port flushes at a 3-week interval and for a 6-week interval visit. Signed By: Oneal Samuel M.D. <<Signature on File>>
== END 2020-03-14 08:21 | disposition home or self-care (01) ==
LOC: ONCMED 08:23
PROVIDERS: PCP Family Medicine; Visit Provider Internal Medicine Medical Oncology
DX: C90.00 Multiple myeloma not having achieved remission (principal); I10 Essential (primary) hypertension; E53.8 Deficiency of other specified B group vitamins; Z79.899 Other long term (current) drug therapy; Z94.84 Stem cells transplant status; Z92.3 Personal history of irradiation
CPT/HCPCS: 36591; 80053; 85025; 99214

== ENCOUNTER 2020-04-03 08:39 | Outpatient (CLI) | payer MEDICARE, OTHER, SELFPAY | END 2020-04-03 08:40 | disposition home or self-care (01) | LOC: ONCMED 08:43 | PROVIDERS: PCP Family Medicine; Visit Provider Internal Medicine Medical Oncology | DX: Z45.2 Encounter for adjustment and management of vascular access device (principal) | CPT/HCPCS: 96523 ==

== ENCOUNTER 2020-04-24 08:38 | Outpatient (CLI) | payer MEDICARE, OTHER, SELFPAY | END 2020-04-24 08:39 | disposition home or self-care (01) | LOC: ONCMED 08:40 | PROVIDERS: PCP Family Medicine; Visit Provider Internal Medicine Medical Oncology | DX: Z45.2 Encounter for adjustment and management of vascular access device (principal) | CPT/HCPCS: 96523 ==

== ENCOUNTER 2020-06-05 08:44 | Outpatient (CLI) | payer MEDICARE, OTHER, SELFPAY | END 2020-06-05 08:45 | disposition home or self-care (01) | LOC: ONCMED 08:47 | PROVIDERS: PCP Family Medicine; Visit Provider Internal Medicine Medical Oncology | DX: Z45.2 Encounter for adjustment and management of vascular access device (principal) | CPT/HCPCS: 96523 ==

== ENCOUNTER 2020-06-26 05:44 | Outpatient (CLI) | payer MEDICARE, OTHER, SELFPAY ==
[2020-06-26 09:52] LABS: Basophils # 0.1 10^3/uL (0.0-0.1); Basophils % 0.9 %; Eosinophils # 0.1 10^3/uL (0.0-0.8); Eosinophils % 1.6 %; Hematocrit 37.9 % (42.0-52.0); Hemoglobin 12.4 g/dL (11.7-16.6); Lymphocytes # 1.2 10^3/uL (0.8-4.8); Lymphocytes % 22.2 %; Mean Corpuscular HGB Conc 32.7 g/dL (30.0-36.0); Mean Corpuscular Hemoglobin 33.1 pg (28.0-34.0); Mean Corpuscular Volume 101.1 fL (80-94); Mean Platelet Volume 10.4 fL (7.4-10.4); Monocytes # 0.6 10^3/uL (0.2-0.9); Monocytes % 10.1 %; Neutrophils # 3.58 10^3/uL (1.8-7.7); Neutrophils % 64.8 %; Nucleated Red Blood Cells % 0 %; Platelet Count 197 10^3/cmm (130-400); Red Blood Count 3.75 10^6/uL (4.1-5.3); Red Cell Distribution Width 14.5 % (12.1-15.1); White Blood Count 5.5 10^3/uL (4.0-10.0)
[2020-06-26 10:11] LABS: Alanine Aminotransferase 9 U/L (0-41); Albumin Level 3.8 g/dL (3.5-5.2); Alkaline Phosphatase 86 IU/L (40-130); Anion Gap 15.7 (5-19); Aspartate Amino Transferase 16 U/L (0-40); Blood Urea Nitrogen 35 mg/dL (8-23); Calcium 8.7 mg/dL (8.5-10.5); Carbon Dioxide 21 mmol/L (22-29); Chloride 108 mmol/L (98-107); Globulin 2.6 g/dL (1.3-4.6); Glomerular Filtration Rate 43.6 mL/min (90-130); Glucose 88 mg/dL (65-115); Osmolality Calculated 297 mOsm/kg (285-295); Potassium 4.7 mmol/L (3.5-5.1); Sodium 140 mmol/L (136-145); Total Bilirubin 0.2 mg/dL (0.15-1.2); Total Protein 6.4 g/dL (6.6-8.7)
--- NOTE | 2020-06-26 14:10 | ONC FU_ITS ---
[facility] Patient Note Patient: Memo Sun Unit #: [id number]: [id number] Dictated By: Renzo WhiteDate of Visit: Jun 26, 2020 Onc MED Follow-Up/Prog Note Chief Complaint: Myeloma. History of Present Illness: Mr Sun is a 64 year-old man with kappa light chain myeloma. He had presented in March 2016 with increasing pain in the lower back over a period of at least several months. He was evaluated with MRI of the lumbar spine on 04/08/2016. It showed posterior retropulsion of the L4 vertebral body by 6 mm. This appeared to be related to a pathologic fracture and soft tissue mass predominantly in the mid and posterior vertebral body. There was soft tissue in the ventral epidural space causing deformity and flattening of the ventral thecal sac. It appeared to extend over a length of 4.5 cm posterior to the L4 vertebral body with marked posterior displacement of the thecal sac. Tumor was noted to extend into the proximal pedicles bilaterally. 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 He was seen by Dr. Lunsford, and subsequent evaluation with CT of the lumbar spine showed virtual complete destruction of the L4 vertebral body. There was associated soft tissue mass extending posteriorly from the vertebral body into the ventral aspect of the epidural space compressing the thecal sac. This was felt to most likely represent neoplastic/metastatic process. His laboratory studies from 03/25/2016 included a CBC which showed hemoglobin decreased to 10.1 g with white blood cell count 9700 and platelet count 395,000. The red cell indices were normal. Chem profile showed a significantly elevated BUN and creatinine at 34 and 2.6 mg/dL with calculated GFR 25 mL/m. The alkaline phosphatase and the liver enzymes were normal. Albumin was normal at 3.7 g/dL with calculated serum globulin also normal at 3.3 g/dL. Calcium also normal at 9.7 mg/dL. Dr Samuel had seen him initially on 04/24/2016. CBC at that point showed hemoglobin down to 9.8 g with white blood cell count 12,700 and platelet count 418,000. BUN was up to 43 with creatinine 2.8 mg/dL. Protein electrophoresis showed a monoclonal paraprotein identified as free kappa light chain quantitating at 0.24 g/dL. The free light chain assay showed elevated kappa light chain at 10,960 mg/L with free lambda light chain 7.94 mg/L and elevated kappa/lambda ratio at 1380. The 24-hour urine showed a total protein excretion of 5994 mg, 93.7% of which was free kappa light chain. He underwent bone marrow aspiration/biopsy on 05/03/2016. The cellularity was 60%. Plasma cells were increased at 18%, and they were noted to exhibit atypical features. Iron stores were noted to be absent. The standard chromosome analysis was normal. The FISH panel for myeloma showed evidence of trisomy 5 and monosomy 13 (13q deletion). The findings were consistent with multiple myeloma. At that point, he had noted improvement in his back pain on low-dose steroid therapy. He was seen by Dr. Key for radiation to the area of involvement in the lumbar spine. He was given 4 days of high-dose dexamethasone. He completed radiation therapy on 05/23/2016 to a total dose of 2,400 cGy. During that time further laboratory analysis revealed a borderline low B12 level and elevated methylmalonic acid and homocysteine levels, consistent with B12 deficiency. He also had an episode of unconsciousness and possible seizure on 05/18/16. He began systemic therapy with cyclophosphamide, Velcade, and dexamethasone on 05/28/2016, and he also started B12 replacement. When he returned for his day 8 treatment his hemoglobin had dropped to 7.7 g with white blood cell count normal at 5100. The platelet count had dropped to 142,000. His creatinine had increased from 2.3 to 3.7 mg/dL and his serum calcium dropped to 7.5 mg/dL with albumin decreased to 2.7 g/dL. Further evaluation showed stable uric acid level at 7.4 mg/dL and normal phosphorus at 3.3 mg/dL. Nonetheless, it did appear to most likely represent some form of tumor lysis syndrome. He was given aggressive outpatient IV hydration. I did opt to hold day 8 cyclophosphamide, but he received both day 8 and day 11 Velcade and dexamethasone. His renal function stabilized, but he did require transfusion of 2 units of packed red blood cells. He began cycle 2 on 06/17/2016, and he was able to complete day 4 Velcade on 06/20/2016. At day 8 I did opt to put his treatment on hold due to declining performance status. However, repeat protein electrophoresis studies prior to starting the second cycle did show a significant decrease in the kappa free light chain, to 1244 mg/L compared to a pretreatment level of 10,960 mg/L. Repeat lumbar spine MRI performed on 07/23/16 showed unchanged L4 compression fracture, but with essentially complete resolution of the L4 posterior vertebral body cortex extension into the central canal and interval resolution of previously noted markedly severe L4-L5 central canal stenosis. There was residual mild central canal stenosis related to L4 compression fracture with posterior-superior vertebral body extension the central canal. He was seen for follow-up at [facility] on 07/30/2016. It was recommended that he complete 2 additional doses of Velcade prior to mobilization for stem cell transplant. These were administered by subcutaneous injection on 08/07/2016 and on 08/16/2016. He then returned to [facility] and he underwent high-dose melphalan with autologous stem cell transplant on 09/13/2016. He indicates that he was in the hospital for 15 days. His treatment was complicated by hypertension. Dr Samuel had seen him for a followup visit on 10/30/2016. He was still very weak following the transplant procedure, and he also complained of very poor appetite. At that point he was beginning to feel better. He was seen at [facility] on 12/20/2016 for his day 100 evaluation. At that point he restarted treatment with Revlimid and dexamethasone in combination with ixazomib. He then presented to the emergency room on 01/20/2017 with weakness and loose stools. He was found to have acute renal failure with creatinine increased to 2.7 mg/dL. His CBC showed hemoglobin adequate at 11.1 g with white blood cell count 3800 and platelet count 39,000. The ANC was 2900. He was admitted to the hospital. With hydration his renal function improved, but there was further decline in his blood counts with his ANC dropping to 400, hemoglobin to 8.1 g, and platelet count to 14,000. He did require platelet pheresis, but he recovered uneventfully. On his subsequent follow-up at [facility] he continued his treatment, but with omission of Revlimid and with a decrease in the ixazomib dosage to 3 mg weekly. As of March 2017 he completed his 4th cycle of treatment. Following his visit there in April 2017, he began maintenance ixazomib with the dosage increased to 4 mg weekly. His repeat bone marrow biopsy at that time showed no increase in plasma cells. His medical history is significant for pre-existing hypertension, and he had no other prior medical illnesses. He had smoked in the past, but he quit more than 25 years ago. INTERIM HISTORY: On 10/25/2017 he was admitted to the hospital with weakness and fever. There was no specific source determined other than he had some evidence of cellulitis in his right arm. He improved on empiric antibiotic coverage with Cipro/vancomycin, and he was discharged home on Augmentin. He then continued his maintenance therapy with weekly ixazomib on a 3 weeks on/1 week off schedule. Mr Sun is here today for followup. He denies any new concerns. His blood pressure has been doing much better on the metopropol 25 twice daily. The range of blood pressure readings he brought today ranged from 103/65-130 6/77. I did ask him to monitor his heart rate as that was not recorded on his blood pressure readings. He states this notices heart rates around 53 and 1 time was 45. I have asked him to keep a close eye on that and continue to record his blood pressures and heart rates at least daily. I did discuss with him the metopropol can lower the heart rate. He states otherwise he is doing well. He denies any pain. States appetite is good. His energy is fair. He is doing his ADLs without any assistance. He denies mouth sores, sore throat or difficulty swallowing. He denies any fever or chills. He denies nausea or vomiting. He states that once a while he has some queasiness but generally if he eats or takes in nausea meds once in a while but does seem to relieve it completely. He has no new concerns today. He is accompanied by his . His ECOG is 0. Past Medical History: Hypertension Past Surgical History: Flu vaccine in [address] hanks in 2019 Flu vaccine in 2018 Cataract surgery in 2018 Bone marrow transplant in 2016 Flu vaccine in 2016 Prevnar 13 vaccine in 2016 Allergies: Bactrim and revlimid. Medications: Acyclovir 1 (400 mg) Tablet Oral b.i.d. Ixazomib Citrate (4 mg) Capsule Oral Take as Directed Metoprolol Tartrate 25 mg (of 25 mg) Tablet Oral b.i.d. Ondansetron HCl 1 (8 mg) Tablet Oral PRN Family History: Mr. Sun's mother at age 84: copd. Mr. Sun's father at age 63: heart attack. Father of heart attack age 63. Mother with COPD at age 84. She also had been treated for melanoma. A brother has heart disease and a sister has heart disease and diabetes. Social History: Mr. Sun is and he is retired. Mr. Sun quit smoking 27 years ago but had smoked 0.5 packs/day for 3 years. He is a former drinker. Mr. Sun reports the following support systems: lives with spouse, significant other, family, or friends, lives in own house, supportive family/friends willing to assist with needs, and adequate transportation available for expected visits. His diet consists of regular meals. He indicates his activity level as: daily activities. He has a history of smoking 1 pack of cigarettes daily for 3 years. He quit smoking 26 years ago. He has had some alcohol use in the past, not heavy. He quit drinking at least 10 years ago. Review Of Symptoms: Constitutional Denies fevers, chills, night sweats, excessive fatigue or weight loss. Allergic/Immunologic No reaction. Eyes Denies vision changes. ENMT Denies problems hearing, sore throat, mouth sores, difficulty or changes in swallowing. Endocrine Denies thyroid disease, or other problems. Hematologic/Lymphatic Denies easy bruising or bleeding. The patient denies any tender or palpable lymph nodes. Respiratory Denies SOB, or cough. Cardiovascular Denies chest pain or palpitations. Gastrointestinal Denies nausea, vomiting, diarrhea, GI bleeding, or constipation. Denies change in bowel habits and/or stool color, no heartburn or early satiety. Genitourinary (M) Denies hematuria, dysuria, urinary freq. or hesitancy or incontinence. Musculoskeletal Denies joint pain, swelling or redness or decreased range of motion. Integumentary Denies rash, infection, or itching of skin. Neurologic Denies headache, blurred vision, or weakness. Psychiatric Denies insomnia, depression, chano, or mood swings. Vital Signs: Performed on Jun 26, 2020 10:26 Height - 71.00 in Weight - 164.8 lbs (HIGH) BSA - 1.94 sq.m BMI - 22.99 Temperature - 97.2 F (LOW) Pulse - 53 /min (LOW) Respiration - 18 /min BP - 128/68 mm(hg) O2 Sat - 98 % Pain - 0,1 - No physically strenuous activity, but ambulatory and able to carry out light or sedentary work (e.g. office work, light house work). (ECOG) Physical Examination: Constitutional Alert, oriented, no acute distress. Skin pink, warm and dry. Head Normocephalic; atraumatic. Eyes Conjunctivae and sclerae are clear and without icterus. Pupils are reactive and equal. Hematologic/Lymphatic No petechiae or purpura. No tender or palpable lymph nodes in the cervical, supraclavicular, or axillary area. Respiratory Lungs are clear to auscultation without rhonchi or wheezing. Cardiovascular Regular rate and rhythm of heart without murmurs,clicks, gallops or rubs. Back/Spine Non-tender to palpation. Extremities No visible deformities, no cyanosis, clubbing or edema. Pulses 4+ and equal bilaterally. Musculoskeletal No tenderness or swelling, normal range of motion without obvious weakness. Integumentary No rashes or lesions. Neurologic No sensory or motor deficits, normal cerebellar function, normal gait. Psychiatric Alert and oriented times three. Coherent speech. Verbalizes understanding of our discussions today. Laboratory:Test performed on Jun 26, 2020 09:17 Sodium 140 mmol/L Potassium 4.7 mmol/L Chloride 108 mmol/L CO2 21 mmol/L Anion Gap 15.7 BUN 35 mg/dL Creatinine 1.6 mg/dL Cr Clearance (Est) 47.8700 mL/min eGFR 43.6 mL/min Glucose 88 mg/dL Osmolality - Calculated 297 mOsm/kg Calcium 8.7 mg/dL Protein, Total 6.4 g/dL Albumin 3.8 g/dL Globulin 2.6 g/dL Bilirubin, Total 0.2 mg/dL ALT (SGPT) 9 U/L AST (SGOT) 16 U/L Alkaline Phosphatase 86 IU/L WBC 5.5 10 3/uL RBC 3.75 10 6/uL HGB 12.4 g/dL HCT 37.9 % MCV 101.1 fL MCH 33.1 pg MCHC 32.7 g/dL RDW 14.5 % Platelet Count 197 10 3/cmm MPV 10.4 fL Neutrophils 3.58 10 3/uL Lymphocytes 1.2 10 3/uL Monocytes 0.6 10 3/uL Eosinophils 0.1 10 3/uL Basophils 0.1 10 3/uL Neutrophil % 64.8 % Lymphocyte % 22.2 % Monocyte % 10.1 % Eosinophil % 1.6 % Basophils % 0.9 % NRBC % 0 % Impression: 1. Patient with kappa light chain myeloma, stage III, initially diagnosed in April 2016. 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 He also had anemia and impaired renal function. Bone marrow aspiration/biopsy on 05/03/2016 showed 18% plasma cells with trisomy 5 and 13q deletion by FISH. 2. He received 4 days of high dose dexamethasone and he was given radiation to the lumbar spine, completed 05/23/2016 to 2400 cGy. 3. He also had evidence of B12 deficiency with low normal B12 level and elevated homocysteine and methylmalonic acid levels. 4. He had pre-existing hypertension. 5. He began systemic therapy with cyclophosphamide/Velcade/dexamethasone on 05/28/2016. His first cycle was complicated by an apparent tumor lysis syndrome which included worsening anemia and renal function together with hypocalcemia and hypoalbuminemia. His day 8 cyclophosphamide was withheld, and he did require transfusion of 2 U of packed red blood cells. 6. During subsequent follow-up he did show some improvement in his renal function, though it had not recovered to baseline. He was able to continue with cycle 2 of cyclophosphamide/Velcade/dexamethasone on 06/17/2016. His treatment was put on hold at day 8 of cycle 2 due to declining performance status. His repeat protein studies, though, did show a significant response to the chemotherapy. 7. He was given 2 additional doses of weekly Velcade, the second on 08/16/2016. He then returned to [facility] and he underwent high-dose melphalan/stem cell transplant on 09/13/2016. 8. He had a somewhat difficult and prolonged recovery following his stem cell transplant procedure. He was seen at [facility] for his day 100 follow-up visit on 12/20/2016. He then restarted treatment with Revlimid and dexamethasone in combination with ixazomib, apparently in the context of a clinical trial. His first cycle of treatment with the ixazamid, Revlimid, dexamethasone was complicated by grade 2 anemia, grade 4 neutropenia, and grade 3 thrombocytopenia, but without fever or bleeding. He also had diarrhea with dehydration and acute renal failure. His creatinine returned to baseline following IV hydration. He did receive a platelet pheresis. He had an uneventful recovery. He then continued treatment with omission of Revlimid and with decrease in his ixazomib dosage to 3 mg weekly. As of March 2017 he had completed 4 cycles of treatment. Following his visit at [facility] in April 2017 he began maintenance ixazomib with the dosage escalated to 4 mg weekly. In October 2017 he had a hospitalization with a febrile illness, possibly due to cellulitis. He recovered uneventfully. He then continued maintenance ixazomib administered weekly on a 3 weeks on/1 week off schedule. He remained mildly anemic and he had persistent chronic kidney disease. During his recent follow-up he has continued to have somewhat limited activity tolerance. He had been losing weight, but that has now stabilized. He appears to be tolerating treatment well now. His blood counts have been a little low, but adequate. Overall he has been doing well clinicall, thus far with no evidence of progression of the myeloma. Plan: He will continue his maintenance ixazomib at the same dosage. He will complete his ixazomib tomorrow and remain off for 1 week. 2. He is due for follow-up with [facility] on August 08. 3. Labs from today were reviewed in detail and discussed with Mr. Sun and a copy was given to him. WBC 5.5, hemoglobin 12.4, platelets are 97,000 ANC is 3580. Creatinine stable at 1.6 random glucose 88 LFTs are normal. His myeloma labs are being monitored through [facility]. 4. We will plan to see him back 6 weeks after his appointment with [facility] in July. I have asked for a CBC CMP at that time as well. 5. Mr. Sun was instructed to contact us in the interim should questions or problems arise. I have asked him to monitor his blood pressure and we can refill a 90-day supply if he feels that the blood pressure medicine is working well and his heart rate is not getting too low. He will monitor and let us know if he decides to pursue a 90-day supply on his blood pressure medication. Signed By: Renzo White-JUDSON, AOCNP Oneal Samuel MD <<Signature on File>>
== END 2020-06-26 05:45 | disposition home or self-care (01) ==
LOC: ONCMED 05:46
PROVIDERS: PCP Family Medicine; Visit Provider Nurse Practitioner
DX: C90.00 Multiple myeloma not having achieved remission (principal); Z23 Encounter for immunization; E53.8 Deficiency of other specified B group vitamins; I12.9 Hypertensive chronic kidney disease with stage 1 through stage 4 chronic kidney disease, or unspecified chronic kidney disease; N18.9 Chronic kidney disease, unspecified; D63.1 Anemia in chronic kidney disease; Z94.84 Stem cells transplant status; Z92.3 Personal history of irradiation; Z87.891 Personal history of nicotine dependence; Z79.899 Other long term (current) drug therapy
CPT/HCPCS: 36591; 80053; 85025; 90471; 90686; 99214

== ENCOUNTER 2020-07-24 06:20 | Outpatient (CLI) | payer MEDICARE, OTHER, SELFPAY | END 2020-07-24 06:21 | disposition home or self-care (01) | PROVIDERS: PCP Family Medicine; Visit Provider Nurse Practitioner | DX: Z45.2 Encounter for adjustment and management of vascular access device (principal) | CPT/HCPCS: 96523 ==

== ENCOUNTER 2020-08-28 10:01 | Outpatient (CLI) | payer MEDICARE, OTHER, SELFPAY | END 2020-08-28 10:02 | disposition home or self-care (01) | LOC: ONCMED 10:03 | PROVIDERS: PCP Family Medicine; Visit Provider Nurse Practitioner | DX: Z45.2 Encounter for adjustment and management of vascular access device (principal) | CPT/HCPCS: 96523 ==

== ENCOUNTER 2020-09-21 08:58 | Outpatient (CLI) | payer MEDICARE, OTHER, SELFPAY ==
[2020-09-21 10:18] LABS: Basophils % 0.5 %; Eosinophils % 0.7 %; Hematocrit 37.4 % (42.0-52.0); Hemoglobin 12.2 g/dL (11.7-16.6); Lymphocytes # 0.7 10^3/uL (0.8-4.8); Lymphocytes % 11.7 %; Mean Corpuscular HGB Conc 32.6 g/dL (30.0-36.0); Mean Corpuscular Hemoglobin 32.5 pg (28.0-34.0); Mean Corpuscular Volume 99.7 fL (80-94); Mean Platelet Volume 11.6 fL (7.4-10.4); Monocytes # 0.5 10^3/uL (0.2-0.9); Monocytes % 7.7 %; Neutrophils # 4.81 10^3/uL (1.8-7.7); Neutrophils % 79.2 %; Nucleated Red Blood Cells % 0 %; Platelet Count 138 10^3/cmm (130-400); Red Blood Count 3.75 10^6/uL (4.1-5.3); Red Cell Distribution Width 13.7 % (12.1-15.1); White Blood Count 6.1 10^3/uL (4.0-10.0)
[2020-09-21 10:33] LABS: Alanine Aminotransferase 14 U/L (0-41); Albumin Level 4.1 g/dL (3.5-5.2); Alkaline Phosphatase 103 IU/L (40-130); Anion Gap 12.9 (5-19); Aspartate Amino Transferase 21 U/L (0-40); Blood Urea Nitrogen 34 mg/dL (8-23); Calcium 8.6 mg/dL (8.5-10.5); Carbon Dioxide 23 mmol/L (22-29); Chloride 104 mmol/L (98-107); Globulin 2.7 g/dL (1.3-4.6); Glomerular Filtration Rate 43.5 mL/min (90-130); Glucose 82 mg/dL (65-115); Osmolality Calculated 287 mOsm/kg (285-295); Potassium 4.9 mmol/L (3.5-5.1); Sodium 135 mmol/L (136-145); Total Bilirubin 0.3 mg/dL (0.15-1.2); Total Protein 6.8 g/dL (6.6-8.7)
--- NOTE | 2020-09-24 14:14 | ONC FU_ITS ---
Dr. Samuel Patient Follow-Up Note Patient: Reed Sun Unit #: [id number]: [id number] Dicatated By: Oneal Samuel M.D.Date of Visit:Sep 21, 2020 Onc Med Follow-up/Prog Note Chief Complaint: Myeloma. History of Present Illness: This is a 65 year-old man with kappa light chain myeloma. He had presented in March 2016 with increasing pain in the lower back over a period of at least several months. He was evaluated with MRI of the lumbar spine on 04/08/2016. It showed posterior retropulsion of the L4 vertebral body by 6 mm. This appeared to be related to a pathologic fracture and soft tissue mass predominantly in the mid and posterior vertebral body. There was soft tissue in the ventral epidural space causing deformity and flattening of the ventral thecal sac. It appeared to extend over a length of 4.5 cm posterior to the L4 vertebral body with marked posterior displacement of the thecal sac. Tumor was noted to extend into the proximal pedicles bilaterally. 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 He was seen by Dr. Lunsford, and subsequent evaluation with CT of the lumbar spine showed virtual complete destruction of the L4 vertebral body. There was associated soft tissue mass extending posteriorly from the vertebral body into the ventral aspect of the epidural space compressing the thecal sac. This was felt to most likely represent neoplastic/metastatic process. His laboratory studies from 03/25/2016 included a CBC which showed hemoglobin decreased to 10.1 g with white blood cell count 9700 and platelet count 395,000. The red cell indices were normal. Chem profile showed a significantly elevated BUN and creatinine at 34 and 2.6 mg/dL with calculated GFR 25 mL/m. The alkaline phosphatase and the liver enzymes were normal. Albumin was normal at 3.7 g/dL with calculated serum globulin also normal at 3.3 g/dL. Calcium also normal at 9.7 mg/dL. I had seen him initially on 04/24/2016. CBC at that point showed hemoglobin down to 9.8 g with white blood cell count 12,700 and platelet count 418,000. BUN was up to 43 with creatinine 2.8 mg/dL. Protein electrophoresis showed a monoclonal paraprotein identified as free kappa light chain quantitating at 0.24 g/dL. The free light chain assay showed elevated kappa light chain at 10,960 mg/L with free lambda light chain 7.94 mg/L and elevated kappa/lambda ratio at 1380. The 24-hour urine showed a total protein excretion of 5994 mg, 93.7% of which was free kappa light chain. He underwent bone marrow aspiration/biopsy on 05/03/2016. The cellularity was 60%. Plasma cells were increased at 18%, and they were noted to exhibit atypical features. Iron stores were noted to be absent. The standard chromosome analysis was normal. The FISH panel for myeloma showed evidence of trisomy 5 and monosomy 13 (13q deletion). The findings were consistent with multiple myeloma. At that point, he had noted improvement in his back pain on low-dose steroid therapy. He was seen by Dr. Key for radiation to the area of involvement in the lumbar spine. He was given 4 days of high-dose dexamethasone. He completed radiation therapy on 05/23/2016 to a total dose of 2,400 cGy. During that time further laboratory analysis revealed a borderline low B12 level and elevated methylmalonic acid and homocysteine levels, consistent with B12 deficiency. He also had an episode of unconsciousness and possible seizure on 05/18/16. He began systemic therapy with cyclophosphamide, Velcade, and dexamethasone on 05/28/2016, and he also started B12 replacement. When he returned for his day 8 treatment his hemoglobin had dropped to 7.7 g with white blood cell count normal at 5100. The platelet count had dropped to 142,000. His creatinine had increased from 2.3 to 3.7 mg/dL and his serum calcium dropped to 7.5 mg/dL with albumin decreased to 2.7 g/dL. Further evaluation showed stable uric acid level at 7.4 mg/dL and normal phosphorus at 3.3 mg/dL. Nonetheless, it did appear to most likely represent some form of tumor lysis syndrome. He was given aggressive outpatient IV hydration. I did opt to hold day 8 cyclophosphamide, but he received both day 8 and day 11 Velcade and dexamethasone. His renal function stabilized, but he did require transfusion of 2 units of packed red blood cells. He began cycle 2 on 06/17/2016, and he was able to complete day 4 Velcade on 06/20/2016. At day 8 I did opt to put his treatment on hold due to declining performance status. However, repeat protein electrophoresis studies prior to starting the second cycle did show a significant decrease in the kappa free light chain, to 1244 mg/L compared to a pretreatment level of 10,960 mg/L. Repeat lumbar spine MRI performed on 07/23/16 showed unchanged L4 compression fracture, but with essentially complete resolution of the L4 posterior vertebral body cortex extension into the central canal and interval resolution of previously noted markedly severe L4-L5 central canal stenosis. There was residual mild central canal stenosis related to L4 compression fracture with posterior-superior vertebral body extension the central canal. He was seen for follow-up at [facility] on 07/30/2016. It was recommended that he complete 2 additional doses of Velcade prior to mobilization for stem cell transplant. These were administered by subcutaneous injection on 08/07/2016 and on 08/16/2016. He then returned to [facility] and he underwent high-dose melphalan with autologous stem cell transplant on 09/13/2016. He indicates that he was in the hospital for 15 days. His treatment was complicated by hypertension. I had seen him for a followup visit on 10/30/2016. He was still very weak following the transplant procedure, and he also complained of very poor appetite. At that point he was beginning to feel better. He was seen at [facility] on 12/20/2016 for his day 100 evaluation. At that point he restarted treatment with Revlimid and dexamethasone in combination with ixazomib. He then presented to the emergency room on 01/20/2017 with weakness and loose stools. He was found to have acute renal failure with creatinine increased to 2.7 mg/dL. His CBC showed hemoglobin adequate at 11.1 g with white blood cell count 3800 and platelet count 39,000. The ANC was 2900. He was admitted to the hospital. With hydration his renal function improved, but there was further decline in his blood counts with his ANC dropping to 400, hemoglobin to 8.1 g, and platelet count to 14,000. He did require platelet pheresis, but he recovered uneventfully. On his subsequent follow-up at [facility] he continued his treatment, but with omission of Revlimid and with a decrease in the ixazomib dosage to 3 mg weekly. As of March 2017 he completed his 4th cycle of treatment. Following his visit there in April 2017, he began maintenance ixazomib with the dosage increased to 4 mg weekly. His repeat bone marrow biopsy at that time showed no increase in plasma cells. He has since then continued his maintenance therapy with weekly ixazomib on a 3 weeks on/1 week off schedule, and he has continued his regular followup at [facility]. His medical history is significant for pre-existing hypertension, and he had no other prior medical illnesses. He had smoked in the past, but he quit more than 25 years ago. INTERIM HISTORY: He is seen for a scheduled visit. He has been feeling good generally. He has pretty good energy and he has normal activity. Appetite has been good. He has gained weight. He does not have fever or night sweats. He has ongoing complaints with pain in his left ear, for which he has seen an ENT physician. He does not complain of cough, shortness of breath, or chest pain. He still has some nausea and diarrhea with the ixazomib, but it does vary from week to week. He has no complaints. He has no significant joint or bone pain. He does not complain of headache. Lately has been a little bit dizzy at times. He has no focal neurologic symptoms. Medications: Acyclovir 1 (400 mg) Tablet Oral b.i.d., Ixazomib Citrate (4 mg) Capsule Oral Take as Directed, Metoprolol Tartrate 25 mg (of 25 mg) Tablet Oral b.i.d., Ondansetron HCl 1 (8 mg) Tablet Oral PRN Allergies: Bactrim and revlimid. Vital Signs: Performed on Sep 21, 2020 10:54 Height - 71.00 in Weight - 166.4 lbs (HIGH) BSA - 1.95 sq.m BMI - 23.21 Temperature - 97.2 F (LOW) Pulse - 63 /min Respiration - 16 /min BP - 104/63 mm(hg) O2 Sat - 98 % Pain - 0 Physical Examination: Constitutional - He looks pretty good generally, Eyes - Sclerae nonicteric. Conjunctivae clear, ENMT - No lesions noted in the oral cavity, Hematologic/Lymphatic - No cervical, clavicular, or axillary adenopathy, Respiratory - Lungs sound clear, Cardiovascular - Heart rhythm is regular. There is no murmur, gallop, or rub noted, Abdomen - Soft. Liver and spleen are not enlarged. There is no abdominal mass or ascites noted and there is no inguinal adenopathy, Extremities - No edema. He has chronic purpura, Neurologic - No focal neurologic deficits noted. Lab/Imaging: Test performed on Sep 21, 2020 09:24 Sodium 135 mmol/L Potassium 4.9 mmol/L Chloride 104 mmol/L CO2 23 mmol/L Anion Gap 12.9 BUN 34 mg/dL Creatinine 1.6 mg/dL Cr Clearance (Est) 47.2300 mL/min eGFR 43.5 mL/min Glucose 82 mg/dL Osmolality - Calculated 287 mOsm/kg Calcium 8.6 mg/dL Protein, Total 6.8 g/dL Albumin 4.1 g/dL Globulin 2.7 g/dL Bilirubin, Total 0.3 mg/dL ALT (SGPT) 14 U/L AST (SGOT) 21 U/L Alkaline Phosphatase 103 IU/L WBC 6.1 10 3/uL RBC 3.75 10 6/uL HGB 12.2 g/dL HCT 37.4 % MCV 99.7 fL MCH 32.5 pg MCHC 32.6 g/dL RDW 13.7 % Platelet Count 138 10 3/cmm MPV 11.6 fL Neutrophils 4.81 10 3/uL Lymphocytes 0.7 10 3/uL Monocytes 0.5 10 3/uL Eosinophils 0.0 10 3/uL Basophils 0.0 10 3/uL Neutrophil % 79.2 % Lymphocyte % 11.7 % Monocyte % 7.7 % Eosinophil % 0.7 % Basophils % 0.5 % NRBC % 0 % Historic Problem List: 1. [place] light chain myeloma, stage III, initially diagnosed in April 2016. 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 He also had anemia and impaired renal function. Bone marrow aspiration/biopsy on 05/03/2016 showed 18% plasma cells with trisomy 5 and 13q deletion by FISH. 2. His initial treatment included high-dose dexamethasone and radiation to the lumbar spine followed by 2 cycles of treatment with cyclophosphamide, Velcade, and dexamethasone followed by 2 additional doses of weekly Velcade, completed on 08/16/2016. 3. He underwent high-dose melphalan/autologous stem cell transplant at [facility] on 09/13/2016. 4. He started maintenance therapy with Revlimid and dexamethasone in combination with ixazomib in December 2016. He developed significant toxicity with his initial cycle, and he then continued maintenance with ixazomib monotherapy. 5. Hypertension. Problems Addressed with this Encounter and Plan: 1. [place] light chain myeloma, stage III, initially diagnosed in April 2016. 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 He had a good response to initial treatment with high-dose dexamethasone and radiation to the lumbar spine followed by 2 cycles of treatment with cyclophosphamide, Velcade, and dexamethasone followed by 2 additional doses of weekly Velcade, completed on 08/16/2016. He then underwent high-dose melphalan/autologous stem cell transplant at [facility] on 09/13/2016. He started maintenance therapy with Revlimid and dexamethasone in combination with ixazomib in December 2016. He developed significant toxicity with the first cycle, and he has since then continued maintenance with ixazomib monotherapy, 4 mg weekly on a 3/4-week schedule. He has had mild some GI side effects with the ixazomib, he is otherwise tolerated well. Thus far there has been no evidence of progression of the myeloma. He continues his regular follow-up at [facility]. He will be scheduled for a follow-up visit here in 12 weeks. 2. He has hypertension, but he currently has low blood pressure. As such, his metoprolol dosage will be reduced to 25 mg daily. Signed By: Oneal Samuel M.D. <<Signature on File>>
== END 2020-09-21 08:59 | disposition home or self-care (01) ==
LOC: ONCMED 09:01
PROVIDERS: PCP Family Medicine; Visit Provider Internal Medicine Medical Oncology
DX: C90.00 Multiple myeloma not having achieved remission (principal); I95.9 Hypotension, unspecified; I10 Essential (primary) hypertension; Z94.84 Stem cells transplant status; Z79.899 Other long term (current) drug therapy
CPT/HCPCS: 36591; 80053; 85025; 99214

== ENCOUNTER 2020-10-12 06:21 | Outpatient (CLI) | payer MEDICARE, OTHER, SELFPAY | END 2020-10-12 06:22 | disposition home or self-care (01) | PROVIDERS: PCP Family Medicine; Visit Provider Internal Medicine Medical Oncology | DX: Z45.2 Encounter for adjustment and management of vascular access device (principal) | CPT/HCPCS: 96523 ==

== ENCOUNTER 2020-11-22 07:46 | Outpatient (CLI) | payer MEDICARE, OTHER, SELFPAY | END 2020-11-22 07:47 | disposition home or self-care (01) | LOC: ONCMED 07:48 | PROVIDERS: PCP Family Medicine; Visit Provider Internal Medicine Medical Oncology | DX: Z45.2 Encounter for adjustment and management of vascular access device (principal) | CPT/HCPCS: 96523 ==

== ENCOUNTER 2020-12-14 10:43 | Outpatient (CLI) | payer MEDICARE, OTHER, SELFPAY ==
[2020-12-14 11:26] LABS: Basophils % 0.5 %; Eosinophils % 0.2 %; Hematocrit 37.4 % (42.0-52.0); Hemoglobin 12.3 g/dL (11.7-16.6); Lymphocytes # 0.6 10^3/uL (0.8-4.8); Lymphocytes % 13.5 %; Mean Corpuscular HGB Conc 32.9 g/dL (30.0-36.0); Mean Corpuscular Hemoglobin 32.4 pg (28.0-34.0); Mean Corpuscular Volume 98.4 fL (80-94); Mean Platelet Volume 11.2 fL (7.4-10.4); Monocytes # 0.4 10^3/uL (0.2-0.9); Neutrophils # 3.38 10^3/uL (1.8-7.7); Neutrophils % 76.1 %; Nucleated Red Blood Cells % 0 %; Platelet Count 99 10^3/cmm (130-400); Red Cell Distribution Width 14.2 % (12.1-15.1); White Blood Count 4.4 10^3/uL (4.0-10.0)
[2020-12-14 11:42] LABS: Alanine Aminotransferase 9 U/L (0-41); Albumin Level 3.8 g/dL (3.5-5.2); Alkaline Phosphatase 76 IU/L (40-130); Anion Gap 15.2 (5-19); Aspartate Amino Transferase 21 U/L (0-40); Blood Urea Nitrogen 36 mg/dL (8-23); Calcium 8.8 mg/dL (8.5-10.5); Carbon Dioxide 23 mmol/L (22-29); Chloride 101 mmol/L (98-107); Globulin 2.7 g/dL (1.3-4.6); Glomerular Filtration Rate 35.6 mL/min (90-130); Glucose 133 mg/dL (65-115); Osmolality Calculated 288 mOsm/kg (285-295); Potassium 5.2 mmol/L (3.5-5.1); Sodium 134 mmol/L (136-145); Total Bilirubin 0.2 mg/dL (0.15-1.2); Total Protein 6.5 g/dL (6.6-8.7)
--- NOTE | 2020-12-15 06:49 | ONC FU_ITS ---
Dr. Samuel Patient Follow-Up Note Patient: Reed Sun Unit #: [id number]: [id number] Dicatated By: Oneal Samuel M.D.Date of Visit:Dec 14, 2020 Onc Med Follow-up/Prog Note Chief Complaint: Myeloma. History of Present Illness: This is a 65 year-old man with kappa light chain myeloma. He had presented in March 2016 with increasing pain in the lower back over a period of at least several months. He was evaluated with MRI of the lumbar spine on 04/08/2016. It showed posterior retropulsion of the L4 vertebral body by 6 mm. This appeared to be related to a pathologic fracture and soft tissue mass predominantly in the mid and posterior vertebral body. There was soft tissue in the ventral epidural space causing deformity and flattening of the ventral thecal sac. It appeared to extend over a length of 4.5 cm posterior to the L4 vertebral body with marked posterior displacement of the thecal sac. Tumor was noted to extend into the proximal pedicles bilaterally. 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 He was seen by Dr. Lunsford, and subsequent evaluation with CT of the lumbar spine showed virtual complete destruction of the L4 vertebral body. There was associated soft tissue mass extending posteriorly from the vertebral body into the ventral aspect of the epidural space compressing the thecal sac. This was felt to most likely represent neoplastic/metastatic process. His laboratory studies from 03/25/2016 included a CBC which showed hemoglobin decreased to 10.1 g with white blood cell count 9700 and platelet count 395,000. The red cell indices were normal. Chem profile showed a significantly elevated BUN and creatinine at 34 and 2.6 mg/dL with calculated GFR 25 mL/m. The alkaline phosphatase and the liver enzymes were normal. Albumin was normal at 3.7 g/dL with calculated serum globulin also normal at 3.3 g/dL. Calcium also normal at 9.7 mg/dL. I had seen him initially on 04/24/2016. CBC at that point showed hemoglobin down to 9.8 g with white blood cell count 12,700 and platelet count 418,000. BUN was up to 43 with creatinine 2.8 mg/dL. Protein electrophoresis showed a monoclonal paraprotein identified as free kappa light chain quantitating at 0.24 g/dL. The free light chain assay showed elevated kappa light chain at 10,960 mg/L with free lambda light chain 7.94 mg/L and elevated kappa/lambda ratio at 1380. The 24-hour urine showed a total protein excretion of 5994 mg, 93.7% of which was free kappa light chain. He underwent bone marrow aspiration/biopsy on 05/03/2016. The cellularity was 60%. Plasma cells were increased at 18%, and they were noted to exhibit atypical features. Iron stores were noted to be absent. The standard chromosome analysis was normal. The FISH panel for myeloma showed evidence of trisomy 5 and monosomy 13 (13q deletion). The findings were consistent with multiple myeloma. At that point, he had noted improvement in his back pain on low-dose steroid therapy. He was seen by Dr. Key for radiation to the area of involvement in the lumbar spine. He was given 4 days of high-dose dexamethasone. He completed radiation therapy on 05/23/2016 to a total dose of 2,400 cGy. During that time further laboratory analysis revealed a borderline low B12 level and elevated methylmalonic acid and homocysteine levels, consistent with B12 deficiency. He also had an episode of unconsciousness and possible seizure on 05/18/16. He began systemic therapy with cyclophosphamide, Velcade, and dexamethasone on 05/28/2016, and he also started B12 replacement. When he returned for his day 8 treatment his hemoglobin had dropped to 7.7 g with white blood cell count normal at 5100. The platelet count had dropped to 142,000. His creatinine had increased from 2.3 to 3.7 mg/dL and his serum calcium dropped to 7.5 mg/dL with albumin decreased to 2.7 g/dL. Further evaluation showed stable uric acid level at 7.4 mg/dL and normal phosphorus at 3.3 mg/dL. Nonetheless, it did appear to most likely represent some form of tumor lysis syndrome. He was given aggressive outpatient IV hydration. I did opt to hold day 8 cyclophosphamide, but he received both day 8 and day 11 Velcade and dexamethasone. His renal function stabilized, but he did require transfusion of 2 units of packed red blood cells. He began cycle 2 on 06/17/2016, and he was able to complete day 4 Velcade on 06/20/2016. At day 8 I did opt to put his treatment on hold due to declining performance status. However, repeat protein electrophoresis studies prior to starting the second cycle did show a significant decrease in the kappa free light chain, to 1244 mg/L compared to a pretreatment level of 10,960 mg/L. Repeat lumbar spine MRI performed on 07/23/16 showed unchanged L4 compression fracture, but with essentially complete resolution of the L4 posterior vertebral body cortex extension into the central canal and interval resolution of previously noted markedly severe L4-L5 central canal stenosis. There was residual mild central canal stenosis related to L4 compression fracture with posterior-superior vertebral body extension the central canal. He was seen for follow-up at [facility] on 07/30/2016. It was recommended that he complete 2 additional doses of Velcade prior to mobilization for stem cell transplant. These were administered by subcutaneous injection on 08/07/2016 and on 08/16/2016. He then returned to [facility] and he underwent high-dose melphalan with autologous stem cell transplant on 09/13/2016. He indicates that he was in the hospital for 15 days. His treatment was complicated by hypertension. I had seen him for a followup visit on 10/30/2016. He was still very weak following the transplant procedure, and he also complained of very poor appetite. At that point he was beginning to feel better. He was seen at [facility] on 12/20/2016 for his day 100 evaluation. At that point he restarted treatment with Revlimid and dexamethasone in combination with ixazomib. He then presented to the emergency room on 01/20/2017 with weakness and loose stools. He was found to have acute renal failure with creatinine increased to 2.7 mg/dL. His CBC showed hemoglobin adequate at 11.1 g with white blood cell count 3800 and platelet count 39,000. The ANC was 2900. He was admitted to the hospital. With hydration his renal function improved, but there was further decline in his blood counts with his ANC dropping to 400, hemoglobin to 8.1 g, and platelet count to 14,000. He did require platelet pheresis, but he recovered uneventfully. On his subsequent follow-up at [facility] he continued his treatment, but with omission of Revlimid and with a decrease in the ixazomib dosage to 3 mg weekly. As of March 2017 he completed his 4th cycle of treatment. Following his visit there in April 2017, he began maintenance ixazomib with the dosage increased to 4 mg weekly. His repeat bone marrow biopsy at that time showed no increase in plasma cells. He has since then continued his maintenance therapy with weekly ixazomib on a 3 weeks on/1 week off schedule, and he has continued his regular followup at [facility]. His medical history is significant for pre-existing hypertension, and he had no other prior medical illnesses. He had smoked in the past, but he quit more than 25 years ago. INTERIM HISTORY: He is seen for a scheduled visit. He has been feeling good generally. He recently completed his second COVID-19 vaccination, and he felt bad for couple of days afterwards. He still has some redness at his injection site. His energy is otherwise been pretty good. He has normal activity. ECOG score is 0. He has good appetite and he has been gaining weight. He has no fever or night sweats. He has no shortness of breath, cough, or chest pain. He has a little nausea after he takes his ixazomib. He is still prone to having diarrhea, but it is adequately managed with medication. He has no complaints. He has no significant joint or bone pain. He does not complain of headache or dizziness. He still has a little numbness in his feet. Medications: Acyclovir 1 (400 mg) Tablet Oral b.i.d., Ixazomib Citrate (4 mg) Capsule Oral Take as Directed, Metoprolol Tartrate 25 mg (of 25 mg) Tablet Oral b.i.d., Ondansetron HCl 1 (8 mg) Tablet Oral PRN Allergies: Bactrim and revlimid. Vital Signs: Performed on Dec 14, 2020 12:28 Height - 71.00 in Weight - 168.2 lbs (HIGH) BSA - 1.96 sq.m BMI - 23.46 Temperature - 98.4 F Pulse - 73 /min Respiration - 17 /min BP - 106/72 mm(hg) O2 Sat - 96 % Pain - 0 Physical Examination: Constitutional - He looks pretty good generally, Eyes - Sclerae nonicteric. Conjunctivae clear, ENMT - No lesions noted in the oral cavity, Hematologic/Lymphatic - No cervical, clavicular, or axillary adenopathy, Respiratory - Lungs sound clear, Cardiovascular - Heart rhythm is regular. There is no murmur, gallop, or rub noted, Abdomen - Soft. Liver and spleen are not enlarged. There is no abdominal mass or ascites noted and there is no inguinal adenopathy, Extremities - No edema. He has chronic purpura, Neurologic - No focal neurologic deficits noted. Lab/Imaging: Test performed on Dec 14, 2020 11:05 Sodium 134 mmol/L Potassium 5.2 mmol/L Chloride 101 mmol/L CO2 23 mmol/L Anion Gap 15.2 BUN 36 mg/dL Creatinine 1.9 mg/dL Cr Clearance (Est) 39.7700 mL/min eGFR 35.6 mL/min Glucose 133 mg/dL Osmolality - Calculated 288 mOsm/kg Calcium 8.8 mg/dL Protein, Total 6.5 g/dL Albumin 3.8 g/dL Globulin 2.7 g/dL Bilirubin, Total 0.2 mg/dL ALT (SGPT) 9 U/L AST (SGOT) 21 U/L Alkaline Phosphatase 76 IU/L WBC 4.4 10 3/uL RBC 3.80 10 6/uL HGB 12.3 g/dL HCT 37.4 % MCV 98.4 fL MCH 32.4 pg MCHC 32.9 g/dL RDW 14.2 % Platelet Count 99 10 3/cmm MPV 11.2 fL Neutrophils 3.38 10 3/uL Lymphocytes 0.6 10 3/uL Monocytes 0.4 10 3/uL Eosinophils 0.0 10 3/uL Basophils 0.0 10 3/uL Neutrophil % 76.1 % Lymphocyte % 13.5 % Monocyte % 9.0 % Eosinophil % 0.2 % Basophils % 0.5 % NRBC % 0 % Problem List: 1. [place] light chain myeloma, stage III, initially diagnosed in April 2016. 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 He also had anemia and impaired renal function. Bone marrow aspiration/biopsy on 05/03/2016 showed 18% plasma cells with trisomy 5 and 13q deletion by FISH. 2. Hypertension. Problems Addressed with this Encounter and Plan: 1. Patient with kappa light chain myeloma, stage III, initially diagnosed in April 2016. 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 He had a good response to initial treatment with high-dose dexamethasone and radiation to the lumbar spine followed by 2 cycles of treatment with cyclophosphamide, Velcade, and dexamethasone followed by 2 additional doses of weekly Velcade, completed on 08/16/2016. He underwent high-dose melphalan/autologous stem cell transplant at [facility] on 09/13/2016. He started maintenance therapy with lenalidomide and dexamethasone in combination with ixazomib in December 2016. He developed significant toxicity with the 1st cycle, and he has since then continued maintenance with ixazomib monotherapy, 4 mg weekly on a 3/4-week schedule. He has had mild some GI side effects with the ixazomib, but he has otherwise tolerated well. Overall, he appears to be doing very well clinically, thus far with no evidence of progression of the myeloma. He continues his regular follow-up at [facility]. He will be scheduled for a follow-up visit here in 12 weeks. 2. He has hypertension, but he continues to have low blood pressure despite having had a reduction in his metoprolol dosage. It will be stopped now. Signed By: Oneal Samuel M.D. <<Signature on File>>
== END 2020-12-14 10:44 | disposition home or self-care (01) ==
PROVIDERS: PCP Family Medicine; Visit Provider Internal Medicine Medical Oncology
DX: C90.00 Multiple myeloma not having achieved remission (principal); I10 Essential (primary) hypertension; I95.9 Hypotension, unspecified; Z94.84 Stem cells transplant status; Z79.899 Other long term (current) drug therapy
CPT/HCPCS: 36591; 80053; 85025; 99214

== ENCOUNTER 2021-01-04 08:58 | Outpatient (CLI) | payer MEDICARE, OTHER, SELFPAY | END 2021-01-04 08:59 | disposition home or self-care (01) | PROVIDERS: PCP Family Medicine; Visit Provider Nurse Practitioner | DX: Z45.2 Encounter for adjustment and management of vascular access device (principal) | CPT/HCPCS: 96523 ==

== ENCOUNTER 2021-02-16 08:13 | Outpatient (CLI) | payer MEDICARE, OTHER, SELFPAY | END 2021-02-16 08:14 | disposition home or self-care (01) | LOC: ONCMED 08:15 | PROVIDERS: PCP Family Medicine; Visit Provider Internal Medicine Medical Oncology | DX: Z45.2 Encounter for adjustment and management of vascular access device (principal) | CPT/HCPCS: 96523 ==

== ENCOUNTER 2021-03-08 13:06 | Outpatient (CLI) | payer MEDICARE, OTHER, SELFPAY ==
[2021-03-08 14:27] LABS: Basophils % 0.4 %; Eosinophils # 0.1 10^3/uL (0.0-0.8); Hematocrit 36.6 % (42.0-52.0); Hemoglobin 11.9 g/dL (11.7-16.6); Lymphocytes # 1.2 10^3/uL (0.8-4.8); Lymphocytes % 17.6 %; Mean Corpuscular HGB Conc 32.5 g/dL (30.0-36.0); Mean Corpuscular Hemoglobin 32.4 pg (28.0-34.0); Mean Corpuscular Volume 99.7 fL (80-94); Mean Platelet Volume 10.9 fL (7.4-10.4); Monocytes # 0.8 10^3/uL (0.2-0.9); Monocytes % 11.2 %; Neutrophils # 4.67 10^3/uL (1.8-7.7); Neutrophils % 69.5 %; Nucleated Red Blood Cells % 0 %; Platelet Count 190 10^3/cmm (130-400); Red Blood Count 3.67 10^6/uL (4.1-5.3); Red Cell Distribution Width 16.9 % (12.1-15.1); White Blood Count 6.7 10^3/uL (4.0-10.0)
[2021-03-08 14:51] LABS: Alanine Aminotransferase 8 U/L (0-41); Albumin Level 4.1 g/dL (3.5-5.2); Alkaline Phosphatase 83 IU/L (40-130); Anion Gap 13.1 (5-19); Aspartate Amino Transferase 23 U/L (0-40); Blood Urea Nitrogen 32 mg/dL (8-23); Calcium 8.5 mg/dL (8.5-10.5); Carbon Dioxide 24 mmol/L (22-29); Chloride 106 mmol/L (98-107); Globulin 2.5 g/dL (1.3-4.6); Glomerular Filtration Rate 40.5 mL/min (90-130); Glucose 94 mg/dL (65-115); Osmolality Calculated 293 mOsm/kg (285-295); Potassium 5.1 mmol/L (3.5-5.1); Sodium 138 mmol/L (136-145); Total Bilirubin 0.2 mg/dL (0.15-1.2); Total Protein 6.6 g/dL (6.6-8.7)
--- NOTE | 2021-03-11 15:28 | ONC FU_ITS ---
Dr. Samuel Patient Follow-Up Note Patient: Reed Sun Unit #: [id number]: [id number] Dicatated By: Oneal Samuel M.D.Date of Visit:Mar 08, 2021 Onc Med Follow-up/Prog Note Chief Complaint: Myeloma. History of Present Illness: This is a 65 year-old man with kappa light chain myeloma. He had presented in March 2016 with increasing pain in the lower back over a period of at least several months. He was evaluated with MRI of the lumbar spine on 04/08/2016. It showed posterior retropulsion of the L4 vertebral body by 6 mm. This appeared to be related to a pathologic fracture and soft tissue mass predominantly in the mid and posterior vertebral body. There was soft tissue in the ventral epidural space causing deformity and flattening of the ventral thecal sac. It appeared to extend over a length of 4.5 cm posterior to the L4 vertebral body with marked posterior displacement of the thecal sac. Tumor was noted to extend into the proximal pedicles bilaterally. 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 He was seen by Dr. Lunsford, and subsequent evaluation with CT of the lumbar spine showed virtual complete destruction of the L4 vertebral body. There was associated soft tissue mass extending posteriorly from the vertebral body into the ventral aspect of the epidural space compressing the thecal sac. This was felt to most likely represent neoplastic/metastatic process. His laboratory studies from 03/25/2016 included a CBC which showed hemoglobin decreased to 10.1 g with white blood cell count 9700 and platelet count 395,000. The red cell indices were normal. Chem profile showed a significantly elevated BUN and creatinine at 34 and 2.6 mg/dL with calculated GFR 25 mL/m. The alkaline phosphatase and the liver enzymes were normal. Albumin was normal at 3.7 g/dL with calculated serum globulin also normal at 3.3 g/dL. Calcium also normal at 9.7 mg/dL. I had seen him initially on 04/24/2016. CBC at that point showed hemoglobin down to 9.8 g with white blood cell count 12,700 and platelet count 418,000. BUN was up to 43 with creatinine 2.8 mg/dL. Protein electrophoresis showed a monoclonal paraprotein identified as free kappa light chain quantitating at 0.24 g/dL. The free light chain assay showed elevated kappa light chain at 10,960 mg/L with free lambda light chain 7.94 mg/L and elevated kappa/lambda ratio at 1380. The 24-hour urine showed a total protein excretion of 5994 mg, 93.7% of which was free kappa light chain. He underwent bone marrow aspiration/biopsy on 05/03/2016. The cellularity was 60%. Plasma cells were increased at 18%, and they were noted to exhibit atypical features. Iron stores were noted to be absent. The standard chromosome analysis was normal. The FISH panel for myeloma showed evidence of trisomy 5 and monosomy 13 (13q deletion). The findings were consistent with multiple myeloma. At that point, he had noted improvement in his back pain on low-dose steroid therapy. He was seen by Dr. Key for radiation to the area of involvement in the lumbar spine. He was given 4 days of high-dose dexamethasone. He completed radiation therapy on 05/23/2016 to a total dose of 2,400 cGy. During that time further laboratory analysis revealed a borderline low B12 level and elevated methylmalonic acid and homocysteine levels, consistent with B12 deficiency. He also had an episode of unconsciousness and possible seizure on 05/18/16. He began systemic therapy with cyclophosphamide, Velcade, and dexamethasone on 05/28/2016, and he also started B12 replacement. When he returned for his day 8 treatment his hemoglobin had dropped to 7.7 g with white blood cell count normal at 5100. The platelet count had dropped to 142,000. His creatinine had increased from 2.3 to 3.7 mg/dL and his serum calcium dropped to 7.5 mg/dL with albumin decreased to 2.7 g/dL. Further evaluation showed stable uric acid level at 7.4 mg/dL and normal phosphorus at 3.3 mg/dL. Nonetheless, it did appear to most likely represent some form of tumor lysis syndrome. He was given aggressive outpatient IV hydration. I did opt to hold day 8 cyclophosphamide, but he received both day 8 and day 11 Velcade and dexamethasone. His renal function stabilized, but he did require transfusion of 2 units of packed red blood cells. He began cycle 2 on 06/17/2016, and he was able to complete day 4 Velcade on 06/20/2016. At day 8 I did opt to put his treatment on hold due to declining performance status. However, repeat protein electrophoresis studies prior to starting the second cycle did show a significant decrease in the kappa free light chain, to 1244 mg/L compared to a pretreatment level of 10,960 mg/L. Repeat lumbar spine MRI performed on 07/23/16 showed unchanged L4 compression fracture, but with essentially complete resolution of the L4 posterior vertebral body cortex extension into the central canal and interval resolution of previously noted markedly severe L4-L5 central canal stenosis. There was residual mild central canal stenosis related to L4 compression fracture with posterior-superior vertebral body extension the central canal. He was seen for follow-up at [facility] on 07/30/2016. It was recommended that he complete 2 additional doses of Velcade prior to mobilization for stem cell transplant. These were administered by subcutaneous injection on 08/07/2016 and on 08/16/2016. He then returned to [facility] and he underwent high-dose melphalan with autologous stem cell transplant on 09/13/2016. He indicates that he was in the hospital for 15 days. His treatment was complicated by hypertension. I had seen him for a followup visit on 10/30/2016. He was still very weak following the transplant procedure, and he also complained of very poor appetite. At that point he was beginning to feel better. He was seen at [facility] on 12/20/2016 for his day 100 evaluation. At that point he restarted treatment with Revlimid and dexamethasone in combination with ixazomib. He then presented to the emergency room on 01/20/2017 with weakness and loose stools. He was found to have acute renal failure with creatinine increased to 2.7 mg/dL. His CBC showed hemoglobin adequate at 11.1 g with white blood cell count 3800 and platelet count 39,000. The ANC was 2900. He was admitted to the hospital. With hydration his renal function improved, but there was further decline in his blood counts with his ANC dropping to 400, hemoglobin to 8.1 g, and platelet count to 14,000. He did require platelet pheresis, but he recovered uneventfully. On his subsequent follow-up at [facility] he continued his treatment, but with omission of Revlimid and with a decrease in the ixazomib dosage to 3 mg weekly. As of March 2017 he completed his 4th cycle of treatment. Following his visit there in April 2017, he began maintenance ixazomib with the dosage increased to 4 mg weekly. His repeat bone marrow biopsy at that time showed no increase in plasma cells. He has since then continued his maintenance therapy with weekly ixazomib on a 3 weeks on/1 week off schedule, and he has continued his regular followup at [facility]. His medical history is significant for pre-existing hypertension, and he had no other prior medical illnesses. He had smoked in the past, but he quit more than 25 years ago. INTERIM HISTORY: He has been feeling pretty good generally. He has been very active. ECOG score is 0. His appetite is okay. His weight is down a couple of pounds. He does not have fever or night sweats. He has not had sore mouth or throat. He has no shortness of breath, cough, or chest pain. He continues to have some diarrhea with the ixazomib, but it is manageable. He has no other GI or complaints. He currently has no significant joint or bone pain. He does not complain of headache or dizziness. He does have some numbness/tingling in his feet. Medications: Acyclovir 1 (400 mg) Tablet Oral b.i.d., Ixazomib Citrate (4 mg) Capsule Oral Take as Directed, Metoprolol Tartrate 25 mg (of 25 mg) Tablet Oral b.i.d., Ondansetron HCl 1 (8 mg) Tablet Oral PRN Allergies: Bactrim and revlimid. Vital Signs: Performed on Mar 08, 2021 16:03 Height - 71.00 in Weight - 166 lbs (LOW) BSA - 1.95 sq.m BMI - 23.15 Temperature - 98 F (LOW) Pulse - 75 /min Respiration - 18 /min BP - 160/78 mm(hg) (HIGH) O2 Sat - 99 % Pain - 0 Fatigue - 0 Physical Examination: Constitutional - He looks pretty good generally, Eyes - Sclerae nonicteric. Conjunctivae clear, ENMT - No lesions noted in the oral cavity, Hematologic/Lymphatic - No cervical, clavicular, or axillary adenopathy, Respiratory - Lungs sound clear, Cardiovascular - Heart rhythm is regular. There is no murmur, gallop, or rub noted, Abdomen - Soft. Liver and spleen are not enlarged. There is no abdominal mass or ascites noted and there is no inguinal adenopathy, Extremities - No edema. He has chronic purpura, Neurologic - No focal neurologic deficits noted. Lab/Imaging: Test performed on Mar 08, 2021 13:55 Sodium 138 mmol/L Potassium 5.1 mmol/L Chloride 106 mmol/L CO2 24 mmol/L Anion Gap 13.1 BUN 32 mg/dL Creatinine 1.7 mg/dL Cr Clearance (Est) 44.4500 mL/min eGFR 40.5 mL/min Glucose 94 mg/dL Osmolality - Calculated 293 mOsm/kg Calcium 8.5 mg/dL Protein, Total 6.6 g/dL Albumin 4.1 g/dL Globulin 2.5 g/dL Bilirubin, Total 0.2 mg/dL ALT (SGPT) 8 U/L AST (SGOT) 23 U/L Alkaline Phosphatase 83 IU/L WBC 6.7 10 3/uL RBC 3.67 10 6/uL HGB 11.9 g/dL HCT 36.6 % MCV 99.7 fL MCH 32.4 pg MCHC 32.5 g/dL RDW 16.9 % Platelet Count 190 10 3/cmm MPV 10.9 fL Neutrophils 4.67 10 3/uL Lymphocytes 1.2 10 3/uL Monocytes 0.8 10 3/uL Eosinophils 0.1 10 3/uL Basophils 0.0 10 3/uL Neutrophil % 69.5 % Lymphocyte % 17.6 % Monocyte % 11.2 % Eosinophil % 1.0 % Basophils % 0.4 % NRBC % 0 % Problem List: 1. [place] light chain myeloma, stage III, initially diagnosed in April 2016. 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 He also had anemia and impaired renal function. Bone marrow aspiration/biopsy on 05/03/2016 showed 18% plasma cells with trisomy 5 and 13q deletion by FISH. 2. Hypertension. Problems Addressed with this Encounter and Plan: 1. Patient with kappa light chain myeloma, stage III, initially diagnosed in April 2016. 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 He had a good response to initial treatment with high-dose dexamethasone and radiation to the lumbar spine followed by 2 cycles of treatment with cyclophosphamide, Velcade, and dexamethasone followed by 2 additional doses of weekly Velcade, completed on 08/16/2016. He underwent high-dose melphalan/autologous stem cell transplant at [facility] on 09/13/2016. He started maintenance therapy with lenalidomide and dexamethasone in combination with ixazomib in December 2016. He developed significant toxicity with the 1st cycle, and he has since then continued maintenance with ixazomib monotherapy, 4 mg weekly on a 3/4-week schedule. He has had mild some diarrhea with the ixazomib, but he has otherwise tolerated well. Overall, he has been doing very well clinically, thus far with no evidence of progression of the myeloma. He continues his regular follow-up at [facility]. He will be scheduled for a follow-up visit here in 12 weeks. 2. He has hypertension. He was having low blood pressure on metoprolol, even at a reduced dosage. With his visit in December I did have him stop the medication. Blood pressure here is now mildly elevated again. He will monitor it at home. Signed By: Oneal Samuel M.D. <<Signature on File>>
== END 2021-03-08 13:07 | disposition home or self-care (01) ==
LOC: ONCMED 13:09
PROVIDERS: PCP Family Medicine; Visit Provider Internal Medicine Medical Oncology
DX: C90.30 Solitary plasmacytoma not having achieved remission (principal); I10 Essential (primary) hypertension; Z79.52 Long term (current) use of systemic steroids; Z79.899 Other long term (current) drug therapy; Z92.3 Personal history of irradiation; Z92.21 Personal history of antineoplastic chemotherapy
CPT/HCPCS: 36415; 36591; 80053; 85025; 99214

== ENCOUNTER 2021-03-30 10:03 | Outpatient (CLI) | payer MEDICARE, OTHER, SELFPAY | END 2021-03-30 10:04 | disposition home or self-care (01) | LOC: ONCMED 10:07 | PROVIDERS: PCP Family Medicine; Visit Provider Internal Medicine Medical Oncology | DX: Z45.2 Encounter for adjustment and management of vascular access device (principal) | CPT/HCPCS: 96523 ==

== ENCOUNTER 2021-05-10 09:44 | Outpatient (CLI) | payer MEDICARE, OTHER, SELFPAY | END 2021-05-10 09:45 | disposition home or self-care (01) | LOC: ONCMED 09:47 | PROVIDERS: PCP Family Medicine; Visit Provider Internal Medicine Medical Oncology | DX: Z45.2 Encounter for adjustment and management of vascular access device (principal) | CPT/HCPCS: 96523 ==

== ENCOUNTER 2021-06-06 07:58 | Outpatient (CLI) | payer MEDICARE, OTHER, SELFPAY ==
[2021-06-06 08:41] LABS: Basophils % 0.6 %; Eosinophils # 0.1 10^3/uL (0.0-0.8); Eosinophils % 1.9 %; Hematocrit 38.8 % (42.0-52.0); Hemoglobin 12.6 g/dL (11.7-16.6); Lymphocytes # 1.3 10^3/uL (0.8-4.8); Lymphocytes % 24.5 %; Mean Corpuscular HGB Conc 32.5 g/dL (30.0-36.0); Mean Corpuscular Hemoglobin 32.1 pg (28.0-34.0); Mean Corpuscular Volume 98.7 fl (80-94); Mean Platelet Volume 10.8 fL (7.4-10.4); Monocytes # 0.5 10^3/uL (0.2-0.9); Monocytes % 8.9 %; Neutrophils # 3.37 10^3/uL (1.8-7.7); Neutrophils % 63.9 %; Nucleated Red Blood Cells % 0 %; Platelet Count 158 10^3/cmm (130-400); Red Blood Count 3.93 10^6/uL (4.1-5.3); Red Cell Distribution Width 13.5 % (12.1-15.1); White Blood Count 5.3 10^3/uL (4.0-10.0)
[2021-06-06 09:09] LABS: Alanine Aminotransferase 10 U/L (0-41); Alkaline Phosphatase 90 IU/L (40-130); Aspartate Amino Transferase 22 U/L (0-40); Blood Urea Nitrogen 30 mg/dL (8-23); Calcium 8.9 mg/dL (8.5-10.5); Carbon Dioxide 24 mmol/L (22-29); Chloride 105 mmol/L (98-107); Globulin 2.9 g/dL (1.3-4.6); Glomerular Filtration Rate 46.8 mL/min (90-130); Glucose 93 mg/dL (65-115); Osmolality Calculated 292 mOsm/kg (285-295); Sodium 138 mmol/L (136-145); Total Bilirubin 0.3 mg/dL (0.15-1.2); Total Protein 6.9 g/dL (6.6-8.7)
--- NOTE | 2021-06-14 12:20 | ONC FU_ITS ---
Dr. Samuel Patient Follow-Up Note Patient: Reed Sun Unit #: [id number]: [id number] Dicatated By: Oneal Samuel M.D.Date of Visit:Jun 06, 2021 Onc Med Follow-up/Prog Note Chief Complaint: Myeloma. History of Present Illness: This is a 65 year-old man with kappa light chain myeloma. He had presented in March 2016 with increasing pain in the lower back over a period of at least several months. He was evaluated with MRI of the lumbar spine on 04/08/2016. It showed posterior retropulsion of the L4 vertebral body by 6 mm. This appeared to be related to a pathologic fracture and soft tissue mass predominantly in the mid and posterior vertebral body. There was soft tissue in the ventral epidural space causing deformity and flattening of the ventral thecal sac. It appeared to extend over a length of 4.5 cm posterior to the L4 vertebral body with marked posterior displacement of the thecal sac. Tumor was noted to extend into the proximal pedicles bilaterally. 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 He was seen by Dr. Lunsford, and subsequent evaluation with CT of the lumbar spine showed virtual complete destruction of the L4 vertebral body. There was associated soft tissue mass extending posteriorly from the vertebral body into the ventral aspect of the epidural space compressing the thecal sac. This was felt to most likely represent neoplastic/metastatic process. His laboratory studies from 03/25/2016 included a CBC which showed hemoglobin decreased to 10.1 g with white blood cell count 9700 and platelet count 395,000. The red cell indices were normal. Chem profile showed a significantly elevated BUN and creatinine at 34 and 2.6 mg/dL with calculated GFR 25 mL/m. The alkaline phosphatase and the liver enzymes were normal. Albumin was normal at 3.7 g/dL with calculated serum globulin also normal at 3.3 g/dL. Calcium also normal at 9.7 mg/dL. I had seen him initially on 04/24/2016. CBC at that point showed hemoglobin down to 9.8 g with white blood cell count 12,700 and platelet count 418,000. BUN was up to 43 with creatinine 2.8 mg/dL. Protein electrophoresis showed a monoclonal paraprotein identified as free kappa light chain quantitating at 0.24 g/dL. The free light chain assay showed elevated kappa light chain at 10,960 mg/L with free lambda light chain 7.94 mg/L and elevated kappa/lambda ratio at 1380. The 24-hour urine showed a total protein excretion of 5994 mg, 93.7% of which was free kappa light chain. He underwent bone marrow aspiration/biopsy on 05/03/2016. The cellularity was 60%. Plasma cells were increased at 18%, and they were noted to exhibit atypical features. Iron stores were noted to be absent. The standard chromosome analysis was normal. The FISH panel for myeloma showed evidence of trisomy 5 and monosomy 13 (13q deletion). The findings were consistent with multiple myeloma. At that point, he had noted improvement in his back pain on low-dose steroid therapy. He was seen by Dr. Key for radiation to the area of involvement in the lumbar spine. He was given 4 days of high-dose dexamethasone. He completed radiation therapy on 05/23/2016 to a total dose of 2,400 cGy. During that time further laboratory analysis revealed a borderline low B12 level and elevated methylmalonic acid and homocysteine levels, consistent with B12 deficiency. He also had an episode of unconsciousness and possible seizure on 05/18/16. He began systemic therapy with cyclophosphamide, Velcade, and dexamethasone on 05/28/2016, and he also started B12 replacement. When he returned for his day 8 treatment his hemoglobin had dropped to 7.7 g with white blood cell count normal at 5100. The platelet count had dropped to 142,000. His creatinine had increased from 2.3 to 3.7 mg/dL and his serum calcium dropped to 7.5 mg/dL with albumin decreased to 2.7 g/dL. Further evaluation showed stable uric acid level at 7.4 mg/dL and normal phosphorus at 3.3 mg/dL. Nonetheless, it did appear to most likely represent some form of tumor lysis syndrome. He was given aggressive outpatient IV hydration. I did opt to hold day 8 cyclophosphamide, but he received both day 8 and day 11 Velcade and dexamethasone. His renal function stabilized, but he did require transfusion of 2 units of packed red blood cells. He began cycle 2 on 06/17/2016, and he was able to complete day 4 Velcade on 06/20/2016. At day 8 I did opt to put his treatment on hold due to declining performance status. However, repeat protein electrophoresis studies prior to starting the second cycle did show a significant decrease in the kappa free light chain, to 1244 mg/L compared to a pretreatment level of 10,960 mg/L. Repeat lumbar spine MRI performed on 07/23/16 showed unchanged L4 compression fracture, but with essentially complete resolution of the L4 posterior vertebral body cortex extension into the central canal and interval resolution of previously noted markedly severe L4-L5 central canal stenosis. There was residual mild central canal stenosis related to L4 compression fracture with posterior-superior vertebral body extension the central canal. He was seen for follow-up at [facility] on 07/30/2016. It was recommended that he complete 2 additional doses of Velcade prior to mobilization for stem cell transplant. These were administered by subcutaneous injection on 08/07/2016 and on 08/16/2016. He then returned to [facility] and he underwent high-dose melphalan with autologous stem cell transplant on 09/13/2016. He indicates that he was in the hospital for 15 days. His treatment was complicated by hypertension. I had seen him for a followup visit on 10/30/2016. He was still very weak following the transplant procedure, and he also complained of very poor appetite. At that point he was beginning to feel better. He was seen at [facility] on 12/20/2016 for his day 100 evaluation. At that point he restarted treatment with Revlimid and dexamethasone in combination with ixazomib. He then presented to the emergency room on 01/20/2017 with weakness and loose stools. He was found to have acute renal failure with creatinine increased to 2.7 mg/dL. His CBC showed hemoglobin adequate at 11.1 g with white blood cell count 3800 and platelet count 39,000. The ANC was 2900. He was admitted to the hospital. With hydration his renal function improved, but there was further decline in his blood counts with his ANC dropping to 400, hemoglobin to 8.1 g, and platelet count to 14,000. He did require platelet pheresis, but he recovered uneventfully. On his subsequent follow-up at [facility] he continued his treatment, but with omission of Revlimid and with a decrease in the ixazomib dosage to 3 mg weekly. As of March 2017 he completed his 4th cycle of treatment. Following his visit there in April 2017, he began maintenance ixazomib with the dosage increased to 4 mg weekly. His repeat bone marrow biopsy at that time showed no increase in plasma cells. He then continued his maintenance therapy with weekly ixazomib on a 3 weeks on/1 week off schedule, and he continued his regular followup at [facility]. His medical history is significant for pre-existing hypertension, and he had no other prior medical illnesses. He had smoked in the past, but he quit more than 25 years ago. INTERIM HISTORY: He is seen for a scheduled follow-up visit. He has been feeling pretty good generally. He says he has been tired a lot, but he has normal activity. ECOG score is 0. He has good appetite. He has no fever or night sweats. He has not had sore mouth or throat. He does not complain of cough, and he has not been having shortness of breath or chest pain. He has no GI or complaints. He has no significant joint or bone pain. He does not complain of headache or dizziness. He has some numbness in his feet. Medications: Acyclovir 1 (400 mg) Tablet Oral b.i.d., Ixazomib Citrate (4 mg) Capsule Oral Take as Directed, Metoprolol Tartrate 25 mg (of 25 mg) Tablet Oral b.i.d. PRN, Ondansetron HCl 1 (8 mg) Tablet Oral PRN Allergies: Bactrim and revlimid. Vital Signs: Performed on Jun 06, 2021 10:24 Height - 71.00 in Weight - 166 lbs BSA - 1.95 sq.m BMI - 23.15 Temperature - 97.3 F (LOW) Pulse - 55 /min (LOW) Respiration - 18 /min BP - 155/90 mm(hg) (HIGH) O2 Sat - 97 % Pain - 0 Fatigue - 0 Physical Examination: Constitutional - He looks pretty good generally, Eyes - Sclerae nonicteric. Conjunctivae clear, ENMT - No lesions noted in the oral cavity, Hematologic/Lymphatic - No cervical, clavicular, or axillary adenopathy, Respiratory - Lungs sound clear, Cardiovascular - Heart rhythm is regular. There is no murmur, gallop, or rub noted, Abdomen - Soft. Liver and spleen are not enlarged. There is no abdominal mass or ascites noted and there is no inguinal adenopathy, Extremities - No edema. He has chronic purpura, Neurologic - No focal neurologic deficits noted. Lab/Imaging: Test performed on Jun 06, 2021 08:25 Sodium 138 mmol/L Potassium 5.0 mmol/L Chloride 105 mmol/L CO2 24 mmol/L Anion Gap 14.0 BUN 30 mg/dL Creatinine 1.5 mg/dL Cr Clearance (Est) 50.3800 mL/min eGFR 46.8 mL/min Glucose 93 mg/dL Osmolality - Calculated 292 mOsm/kg Calcium 8.9 mg/dL Protein, Total 6.9 g/dL Albumin 4.0 g/dL Globulin 2.9 g/dL Bilirubin, Total 0.3 mg/dL ALT (SGPT) 10 U/L AST (SGOT) 22 U/L Alkaline Phosphatase 90 IU/L WBC 5.3 10 3/uL RBC 3.93 10 6/uL HGB 12.6 g/dL HCT 38.8 % MCV 98.7 fl MCH 32.1 pg MCHC 32.5 g/dL RDW 13.5 % Platelet Count 158 10 3/cmm MPV 10.8 fL Neutrophils 3.37 10 3/uL Lymphocytes 1.3 10 3/uL Monocytes 0.5 10 3/uL Eosinophils 0.1 10 3/uL Basophils 0.0 10 3/uL Neutrophil % 63.9 % Lymphocyte % 24.5 % Monocyte % 8.9 % Eosinophil % 1.9 % Basophils % 0.6 % NRBC % 0 % Problem List: 1. [place] light chain myeloma, stage III, initially diagnosed in April 2016. 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 He also had anemia and impaired renal function. Bone marrow aspiration/biopsy on 05/03/2016 showed 18% plasma cells with trisomy 5 and 13q deletion by FISH. 2. Hypertension. Problems Addressed with this Encounter and Plan: 1. Patient with kappa light chain myeloma, stage III, initially diagnosed in April 2016. 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 He had a good response to initial treatment with high-dose dexamethasone and radiation to the lumbar spine followed by 2 cycles of treatment with cyclophosphamide, Velcade, and dexamethasone followed by 2 additional doses of weekly Velcade, completed on 08/16/2016. He underwent high-dose melphalan/autologous stem cell transplant at [facility] on 09/13/2016. He started maintenance therapy with lenalidomide and dexamethasone in combination with ixazomib in December 2016. He developed significant toxicity with the 1st cycle, and he has since then continued maintenance with ixazomib monotherapy, 4 mg weekly on a 3/4-week schedule. He has had mild some diarrhea with the ixazomib, and he also has some fatigue. Overall, he continues to do well clinically, thus far with no evidence of progression of the myeloma. He has follow-up scheduled at [facility] on 10 July. He will return here at a 6-week interval. 2. He has hypertension. His blood pressure has tended to fluctuate, at times it has been a little high. As such, I am going to have him try going back on metoprolol at a reduced dosage of 12.5 mg twice daily. He is monitoring his blood pressure at home. Signed By: Oneal Samuel M.D. <<Signature on File>>
== END 2021-06-06 07:59 | disposition home or self-care (01) ==
LOC: ONCMED 08:01
PROVIDERS: PCP Family Medicine; Visit Provider Internal Medicine Medical Oncology
DX: C90.00 Multiple myeloma not having achieved remission (principal); N28.9 Disorder of kidney and ureter, unspecified; I10 Essential (primary) hypertension; Z79.899 Other long term (current) drug therapy; Z92.21 Personal history of antineoplastic chemotherapy
CPT/HCPCS: 36591; 80053; 85025; 99214

== ENCOUNTER 2021-08-01 13:48 | Outpatient (CLI) | payer MEDICARE, OTHER, SELFPAY | END 2021-08-01 13:49 | disposition home or self-care (01) | LOC: ONCMED 13:50 | PROVIDERS: PCP Family Medicine; Visit Provider Internal Medicine Medical Oncology | DX: C90.00 Multiple myeloma not having achieved remission (principal); D64.9 Anemia, unspecified; I10 Essential (primary) hypertension; Z79.899 Other long term (current) drug therapy | CPT/HCPCS: 36593; 96374 ==

== ENCOUNTER 2021-08-22 13:14 | Outpatient (CLI) | payer MEDICARE, OTHER, SELFPAY ==
[2021-08-22 13:53] LABS: Basophils % 0.4 %; Eosinophils # 0.1 10^3/uL (0.0-0.8); Hematocrit 37.5 % (42.0-52.0); Hemoglobin 12.5 g/dL (11.7-16.6); Lymphocytes # 1.9 10^3/uL (0.8-4.8); Lymphocytes % 18.8 %; Mean Corpuscular HGB Conc 33.3 g/dL (30.0-36.0); Mean Corpuscular Hemoglobin 32.5 pg (28.0-34.0); Mean Corpuscular Volume 97.4 fl (80-94); Mean Platelet Volume 11.3 fL (7.4-10.4); Monocytes # 0.8 10^3/uL (0.2-0.9); Neutrophils # 7.24 10^3/uL (1.8-7.7); Neutrophils % 71.4 %; Nucleated Red Blood Cells % 0 %; Platelet Count 143 10^3/cmm (130-400); Red Blood Count 3.85 10^6/uL (4.1-5.3); Red Cell Distribution Width 14.7 % (12.1-15.1); White Blood Count 10.1 10^3/uL (4.0-10.0)
[2021-08-22 14:31] LABS: Alanine Aminotransferase 8 U/L (0-41); Albumin Level 3.9 g/dL (3.5-5.2); Alkaline Phosphatase 75 IU/L (40-130); Anion Gap 18.5 (5-19); Aspartate Amino Transferase 16 U/L (0-40); Blood Urea Nitrogen 32 mg/dL (8-23); Calcium 8.2 mg/dL (8.5-10.5); Carbon Dioxide 19 mmol/L (22-29); Chloride 104 mmol/L (98-107); Globulin 2.8 g/dL (1.3-4.6); Glomerular Filtration Rate 43.3 mL/min (90-130); Glucose 107 mg/dL (65-115); Osmolality Calculated 291 mOsm/kg (285-295); Potassium 4.5 mmol/L (3.5-5.1); Sodium 137 mmol/L (136-145); Total Bilirubin 0.3 mg/dL (0.15-1.2); Total Protein 6.7 g/dL (6.6-8.7)
--- NOTE | 2021-08-25 12:48 | ONC FU_ITS ---
Dr. Samuel Patient Follow-Up Note Patient: Reed Sun Unit #: [id number]: [id number] Dicatated By: Oneal Samuel M.D.Date of Visit:Aug 22, 2021 Onc Med Follow-up/Prog Note Chief Complaint: Myeloma. History of Present Illness: This is a 66 year-old man with kappa light chain myeloma. He had presented in March 2016 with increasing pain in the lower back over a period of at least several months. He was evaluated with MRI of the lumbar spine on 04/08/2016. It showed posterior retropulsion of the L4 vertebral body by 6 mm. This appeared to be related to a pathologic fracture and soft tissue mass predominantly in the mid and posterior vertebral body. There was soft tissue in the ventral epidural space causing deformity and flattening of the ventral thecal sac. It appeared to extend over a length of 4.5 cm posterior to the L4 vertebral body with marked posterior displacement of the thecal sac. Tumor was noted to extend into the proximal pedicles bilaterally. 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 He was seen by Dr. Lunsford, and subsequent evaluation with CT of the lumbar spine showed virtual complete destruction of the L4 vertebral body. There was associated soft tissue mass extending posteriorly from the vertebral body into the ventral aspect of the epidural space compressing the thecal sac. This was felt to most likely represent neoplastic/metastatic process. His laboratory studies from 03/25/2016 included a CBC which showed hemoglobin decreased to 10.1 g with white blood cell count 9700 and platelet count 395,000. The red cell indices were normal. Chem profile showed a significantly elevated BUN and creatinine at 34 and 2.6 mg/dL with calculated GFR 25 mL/m. The alkaline phosphatase and the liver enzymes were normal. Albumin was normal at 3.7 g/dL with calculated serum globulin also normal at 3.3 g/dL. Calcium also normal at 9.7 mg/dL. I had seen him initially on 04/24/2016. CBC at that point showed hemoglobin down to 9.8 g with white blood cell count 12,700 and platelet count 418,000. BUN was up to 43 with creatinine 2.8 mg/dL. Protein electrophoresis showed a monoclonal paraprotein identified as free kappa light chain quantitating at 0.24 g/dL. The free light chain assay showed elevated kappa light chain at 10,960 mg/L with free lambda light chain 7.94 mg/L and elevated kappa/lambda ratio at 1380. The 24-hour urine showed a total protein excretion of 5994 mg, 93.7% of which was free kappa light chain. He underwent bone marrow aspiration/biopsy on 05/03/2016. The cellularity was 60%. Plasma cells were increased at 18%, and they were noted to exhibit atypical features. Iron stores were noted to be absent. The standard chromosome analysis was normal. The FISH panel for myeloma showed evidence of trisomy 5 and monosomy 13 (13q deletion). The findings were consistent with multiple myeloma. At that point, he had noted improvement in his back pain on low-dose steroid therapy. He was seen by Dr. Key for radiation to the area of involvement in the lumbar spine. He was given 4 days of high-dose dexamethasone. He completed radiation therapy on 05/23/2016 to a total dose of 2,400 cGy. During that time further laboratory analysis revealed a borderline low B12 level and elevated methylmalonic acid and homocysteine levels, consistent with B12 deficiency. He also had an episode of unconsciousness and possible seizure on 05/18/16. He began systemic therapy with cyclophosphamide, Velcade, and dexamethasone on 05/28/2016, and he also started B12 replacement. When he returned for his day 8 treatment his hemoglobin had dropped to 7.7 g with white blood cell count normal at 5100. The platelet count had dropped to 142,000. His creatinine had increased from 2.3 to 3.7 mg/dL and his serum calcium dropped to 7.5 mg/dL with albumin decreased to 2.7 g/dL. Further evaluation showed stable uric acid level at 7.4 mg/dL and normal phosphorus at 3.3 mg/dL. Nonetheless, it did appear to most likely represent some form of tumor lysis syndrome. He was given aggressive outpatient IV hydration. I did opt to hold day 8 cyclophosphamide, but he received both day 8 and day 11 Velcade and dexamethasone. His renal function stabilized, but he did require transfusion of 2 units of packed red blood cells. He began cycle 2 on 06/17/2016, and he was able to complete day 4 Velcade on 06/20/2016. At day 8 I did opt to put his treatment on hold due to declining performance status. However, repeat protein electrophoresis studies prior to starting the second cycle did show a significant decrease in the kappa free light chain, to 1244 mg/L compared to a pretreatment level of 10,960 mg/L. Repeat lumbar spine MRI performed on 07/23/16 showed unchanged L4 compression fracture, but with essentially complete resolution of the L4 posterior vertebral body cortex extension into the central canal and interval resolution of previously noted markedly severe L4-L5 central canal stenosis. There was residual mild central canal stenosis related to L4 compression fracture with posterior-superior vertebral body extension the central canal. He was seen for follow-up at [facility] on 07/30/2016. It was recommended that he complete 2 additional doses of Velcade prior to mobilization for stem cell transplant. These were administered by subcutaneous injection on 08/07/2016 and on 08/16/2016. He then returned to [facility] and he underwent high-dose melphalan with autologous stem cell transplant on 09/13/2016. He indicates that he was in the hospital for 15 days. His treatment was complicated by hypertension. I had seen him for a followup visit on 10/30/2016. He was still very weak following the transplant procedure, and he also complained of very poor appetite. At that point he was beginning to feel better. He was seen at [facility] on 12/20/2016 for his day 100 evaluation. At that point he restarted treatment with Revlimid and dexamethasone in combination with ixazomib. He then presented to the emergency room on 01/20/2017 with weakness and loose stools. He was found to have acute renal failure with creatinine increased to 2.7 mg/dL. His CBC showed hemoglobin adequate at 11.1 g with white blood cell count 3800 and platelet count 39,000. The ANC was 2900. He was admitted to the hospital. With hydration his renal function improved, but there was further decline in his blood counts with his ANC dropping to 400, hemoglobin to 8.1 g, and platelet count to 14,000. He did require platelet pheresis, but he recovered uneventfully. On his subsequent follow-up at [facility] he continued his treatment, but with omission of Revlimid and with a decrease in the ixazomib dosage to 3 mg weekly. As of March 2017 he completed his 4th cycle of treatment. Following his visit there in April 2017, he began maintenance ixazomib with the dosage increased to 4 mg weekly. His repeat bone marrow biopsy at that time showed no increase in plasma cells. He then continued his maintenance therapy with weekly ixazomib on a 3 weeks on/1 week off schedule, and he continued his regular followup at [facility]. His medical history is significant for pre-existing hypertension, and he had no other prior medical illnesses. He had smoked in the past, but he quit more than 25 years ago. INTERIM HISTORY: He is seen for a scheduled follow-up visit. He has been feeling pretty good generally, though he did develop severe fatigue following his COVID-19 booster shot. His energy is better now, though he still has good days and bad days. ECOG score is 1. Appetite is variable. His weight is down a couple of pounds. He does not have fever or night sweats. He still complains that his left ear sounds like a tunnel. He has not had sore mouth or throat. He does not complain of cough, and he has not been having shortness of breath or chest pain. He has no GI or complaints. He has no significant joint or bone pain. He does not complain of headache or dizziness. He still has some numbness/tingling in his feet. He also complains that he bruises easily. Medications: Acyclovir 1 (400 mg) Tablet Oral b.i.d., Ixazomib Citrate (4 mg) Capsule Oral Take as Directed, Metoprolol Tartrate 25 mg (of 25 mg) Tablet Oral b.i.d. PRN, Ondansetron HCl 1 (8 mg) Tablet Oral PRN Allergies: Bactrim and revlimid. Vital Signs: Performed on Aug 22, 2021 15:02 Height - 71.00 in Weight - 167.6 lbs (HIGH) BSA - 1.96 sq.m BMI - 23.38 Temperature - 97.4 F (LOW) Pulse - 95 /min Respiration - 18 /min BP - 117/77 mm(hg) O2 Sat - 98 % Pain - 0 Fatigue - 7 Physical Examination: Constitutional - He looks pretty good generally, Eyes - Sclerae nonicteric. Conjunctivae clear, ENMT - No lesions noted in the oral cavity, Hematologic/Lymphatic - No cervical, clavicular, or axillary adenopathy, Respiratory - Lungs sound clear, Cardiovascular - Heart rhythm is regular. There is no murmur, gallop, or rub noted, Abdomen - Soft. Liver and spleen are not enlarged. There is no abdominal mass or ascites noted and there is no inguinal adenopathy, Extremities - No edema. He has chronic purpura, Neurologic - No focal neurologic deficits noted. Lab/Imaging: Test performed on Aug 22, 2021 13:46 Sodium 137 mmol/L Potassium 4.5 mmol/L Chloride 104 mmol/L CO2 19 mmol/L Anion Gap 18.5 BUN 32 mg/dL Creatinine 1.6 mg/dL Cr Clearance (Est) 46.5900 mL/min eGFR 43.3 mL/min Glucose 107 mg/dL Osmolality - Calculated 291 mOsm/kg Calcium 8.2 mg/dL Protein, Total 6.7 g/dL Albumin 3.9 g/dL Globulin 2.8 g/dL Bilirubin, Total 0.3 mg/dL ALT (SGPT) 8 U/L AST (SGOT) 16 U/L Alkaline Phosphatase 75 IU/L WBC 10.1 10 3/uL RBC 3.85 10 6/uL HGB 12.5 g/dL HCT 37.5 % MCV 97.4 fl MCH 32.5 pg MCHC 33.3 g/dL RDW 14.7 % Platelet Count 143 10 3/cmm MPV 11.3 fL Neutrophils 7.24 10 3/uL Lymphocytes 1.9 10 3/uL Monocytes 0.8 10 3/uL Eosinophils 0.1 10 3/uL Basophils 0.0 10 3/uL Neutrophil % 71.4 % Lymphocyte % 18.8 % Monocyte % 8.0 % Eosinophil % 1.0 % Basophils % 0.4 % NRBC % 0 % Problem List: 1. [place] light chain myeloma, stage III, initially diagnosed in April 2016. 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 He also had anemia and impaired renal function. Bone marrow aspiration/biopsy on 05/03/2016 showed 18% plasma cells with trisomy 5 and 13q deletion by FISH. 2. Hypertension. Problems Addressed with this Encounter and Plan: 1. Patient with kappa light chain myeloma, stage III, initially diagnosed in April 2016. 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 He had a good response to initial treatment with high-dose dexamethasone and radiation to the lumbar spine followed by 2 cycles of treatment with cyclophosphamide, Velcade, and dexamethasone followed by 2 additional doses of weekly Velcade, completed on 08/16/2016. He underwent high-dose melphalan/autologous stem cell transplant at [facility] on 09/13/2016. He started maintenance therapy with lenalidomide and dexamethasone in combination with ixazomib in December 2016. He developed significant toxicity with the 1st cycle, and he has since then continued maintenance with ixazomib monotherapy, 4 mg weekly on a 3/4-week schedule. He has had mild some diarrhea with the ixazomib, and he also has some fatigue. Overall, he has been doing well clinically. He tolerates treatment well, and thus far there has been no evidence of recurrence/progression of the myeloma. He has follow-up scheduled at [facility] on 02 October. He will return here at a 6-week interval. 2. He has hypertension, but his blood pressure has tended to fluctuate. He continues metoprolol at a reduced dosage of 12.5 mg twice daily. He is monitoring his blood pressure at home. Signed By: Oneal Samuel M.D. <<Signature on File>>
== END 2021-08-22 13:15 | disposition home or self-care (01) ==
LOC: ONCMED 13:16
PROVIDERS: PCP Family Medicine; Visit Provider Internal Medicine Medical Oncology
DX: C90.30 Solitary plasmacytoma not having achieved remission (principal); D64.9 Anemia, unspecified; N28.9 Disorder of kidney and ureter, unspecified; I10 Essential (primary) hypertension; Z79.899 Other long term (current) drug therapy
CPT/HCPCS: 36591; 80053; 85025; 99214

== ENCOUNTER 2021-09-12 14:17 | Outpatient (CLI) | payer MEDICARE, OTHER, SELFPAY | END 2021-09-12 14:18 | disposition home or self-care (01) | PROVIDERS: PCP Family Medicine; Visit Provider Internal Medicine Medical Oncology | DX: Z45.2 Encounter for adjustment and management of vascular access device (principal) | CPT/HCPCS: 96523 ==

== ENCOUNTER 2021-10-23 12:16 | Outpatient (CLI) | payer MEDICARE, OTHER, SELFPAY | END 2021-10-23 12:17 | disposition home or self-care (01) | PROVIDERS: PCP Family Medicine; Visit Provider Internal Medicine Medical Oncology | DX: Z45.2 Encounter for adjustment and management of vascular access device (principal) | CPT/HCPCS: 96523 ==

== ENCOUNTER 2021-11-13 09:28 | Outpatient (CLI) | payer MEDICARE, OTHER, SELFPAY ==
[2021-11-13 10:09] LABS: Basophils % 0.2 %; Eosinophils # 0.1 10^3/uL (0.0-0.8); Eosinophils % 1.2 %; Hematocrit 37.3 % (42.0-52.0); Hemoglobin 12.1 g/dL (11.7-16.6); Mean Corpuscular HGB Conc 32.4 g/dL (30.0-36.0); Mean Corpuscular Hemoglobin 32.2 pg (28.0-34.0); Mean Corpuscular Volume 99.2 fl (80-94); Mean Platelet Volume 11.8 fL (7.4-10.4); Monocytes # 0.5 10^3/uL (0.2-0.9); Monocytes % 10.5 %; Neutrophils # 2.79 10^3/uL (1.8-7.7); Neutrophils % 64.9 %; Nucleated Red Blood Cells % 0 %; Platelet Count 103 10^3/cmm (130-400); Red Blood Count 3.76 10^6/uL (4.1-5.3); Red Cell Distribution Width 14.2 % (12.1-15.1); White Blood Count 4.3 10^3/uL (4.0-10.0)
[2021-11-13 10:27] LABS: Alanine Aminotransferase 13 U/L (0-41); Alkaline Phosphatase 92 IU/L (40-130); Anion Gap 14.9 (5-19); Aspartate Amino Transferase 27 U/L (0-40); Blood Urea Nitrogen 30 mg/dL (8-23); Calcium 8.9 mg/dL (8.5-10.5); Carbon Dioxide 22 mmol/L (22-29); Chloride 106 mmol/L (98-107); Glomerular Filtration Rate 50.5 mL/min (90-130); Glucose 89 mg/dL (65-115); Osmolality Calculated 292 mOsm/kg (285-295); Potassium 4.9 mmol/L (3.5-5.1); Sodium 138 mmol/L (136-145); Total Bilirubin 0.3 mg/dL (0.15-1.2)
--- NOTE | 2021-11-16 17:21 | ONC FU_ITS ---
Dr. Samuel Patient Follow-Up Note Patient: Reed Sun Unit #: [id number]: [id number] Dicatated By: Oneal Samuel M.D.Date of Visit:Nov 13, 2021 Onc Med Follow-up/Prog Note Chief Complaint: Myeloma. History of Present Illness: This is a 66 year-old man with kappa light chain myeloma. He had presented in March 2016 with increasing pain in the lower back over a period of at least several months. He was evaluated with MRI of the lumbar spine on 04/08/2016. It showed posterior retropulsion of the L4 vertebral body by 6 mm. This appeared to be related to a pathologic fracture and soft tissue mass predominantly in the mid and posterior vertebral body. There was soft tissue in the ventral epidural space causing deformity and flattening of the ventral thecal sac. It appeared to extend over a length of 4.5 cm posterior to the L4 vertebral body with marked posterior displacement of the thecal sac. Tumor was noted to extend into the proximal pedicles bilaterally. 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 He was seen by Dr. Lunsford, and subsequent evaluation with CT of the lumbar spine showed virtual complete destruction of the L4 vertebral body. There was associated soft tissue mass extending posteriorly from the vertebral body into the ventral aspect of the epidural space compressing the thecal sac. This was felt to most likely represent neoplastic/metastatic process. His laboratory studies from 03/25/2016 included a CBC which showed hemoglobin decreased to 10.1 g with white blood cell count 9700 and platelet count 395,000. The red cell indices were normal. Chem profile showed a significantly elevated BUN and creatinine at 34 and 2.6 mg/dL with calculated GFR 25 mL/m. The alkaline phosphatase and the liver enzymes were normal. Albumin was normal at 3.7 g/dL with calculated serum globulin also normal at 3.3 g/dL. Calcium also normal at 9.7 mg/dL. I had seen him initially on 04/24/2016. CBC at that point showed hemoglobin down to 9.8 g with white blood cell count 12,700 and platelet count 418,000. BUN was up to 43 with creatinine 2.8 mg/dL. Protein electrophoresis showed a monoclonal paraprotein identified as free kappa light chain quantitating at 0.24 g/dL. The free light chain assay showed elevated kappa light chain at 10,960 mg/L with free lambda light chain 7.94 mg/L and elevated kappa/lambda ratio at 1380. The 24-hour urine showed a total protein excretion of 5994 mg, 93.7% of which was free kappa light chain. He underwent bone marrow aspiration/biopsy on 05/03/2016. The cellularity was 60%. Plasma cells were increased at 18%, and they were noted to exhibit atypical features. Iron stores were noted to be absent. The standard chromosome analysis was normal. The FISH panel for myeloma showed evidence of trisomy 5 and monosomy 13 (13q deletion). The findings were consistent with multiple myeloma. At that point, he had noted improvement in his back pain on low-dose steroid therapy. He was seen by Dr. Key for radiation to the area of involvement in the lumbar spine. He was given 4 days of high-dose dexamethasone. He completed radiation therapy on 05/23/2016 to a total dose of 2,400 cGy. During that time further laboratory analysis revealed a borderline low B12 level and elevated methylmalonic acid and homocysteine levels, consistent with B12 deficiency. He also had an episode of unconsciousness and possible seizure on 05/18/16. He began systemic therapy with cyclophosphamide, Velcade, and dexamethasone on 05/28/2016, and he also started B12 replacement. When he returned for his day 8 treatment his hemoglobin had dropped to 7.7 g with white blood cell count normal at 5100. The platelet count had dropped to 142,000. His creatinine had increased from 2.3 to 3.7 mg/dL and his serum calcium dropped to 7.5 mg/dL with albumin decreased to 2.7 g/dL. Further evaluation showed stable uric acid level at 7.4 mg/dL and normal phosphorus at 3.3 mg/dL. Nonetheless, it did appear to most likely represent some form of tumor lysis syndrome. He was given aggressive outpatient IV hydration. I did opt to hold day 8 cyclophosphamide, but he received both day 8 and day 11 Velcade and dexamethasone. His renal function stabilized, but he did require transfusion of 2 units of packed red blood cells. He began cycle 2 on 06/17/2016, and he was able to complete day 4 Velcade on 06/20/2016. At day 8 I did opt to put his treatment on hold due to declining performance status. However, repeat protein electrophoresis studies prior to starting the second cycle did show a significant decrease in the kappa free light chain, to 1244 mg/L compared to a pretreatment level of 10,960 mg/L. Repeat lumbar spine MRI performed on 07/23/16 showed unchanged L4 compression fracture, but with essentially complete resolution of the L4 posterior vertebral body cortex extension into the central canal and interval resolution of previously noted markedly severe L4-L5 central canal stenosis. There was residual mild central canal stenosis related to L4 compression fracture with posterior-superior vertebral body extension the central canal. He was seen for follow-up at [facility] on 07/30/2016. It was recommended that he complete 2 additional doses of Velcade prior to mobilization for stem cell transplant. These were administered by subcutaneous injection on 08/07/2016 and on 08/16/2016. He then returned to [facility] and he underwent high-dose melphalan with autologous stem cell transplant on 09/13/2016. He indicates that he was in the hospital for 15 days. His treatment was complicated by hypertension. I had seen him for a followup visit on 10/30/2016. He was still very weak following the transplant procedure, and he also complained of very poor appetite. At that point he was beginning to feel better. He was seen at [facility] on 12/20/2016 for his day 100 evaluation. At that point he restarted treatment with Revlimid and dexamethasone in combination with ixazomib. He then presented to the emergency room on 01/20/2017 with weakness and loose stools. He was found to have acute renal failure with creatinine increased to 2.7 mg/dL. His CBC showed hemoglobin adequate at 11.1 g with white blood cell count 3800 and platelet count 39,000. The ANC was 2900. He was admitted to the hospital. With hydration his renal function improved, but there was further decline in his blood counts with his ANC dropping to 400, hemoglobin to 8.1 g, and platelet count to 14,000. He did require platelet pheresis, but he recovered uneventfully. On his subsequent follow-up at [facility] he continued his treatment, but with omission of Revlimid and with a decrease in the ixazomib dosage to 3 mg weekly. As of March 2017 he completed his 4th cycle of treatment. Following his visit there in April 2017, he began maintenance ixazomib with the dosage increased to 4 mg weekly. His repeat bone marrow biopsy at that time showed no increase in plasma cells. He then continued his maintenance therapy with weekly ixazomib on a 3 weeks on/1 week off schedule, and he continued his regular followup at [facility]. His medical history is significant for pre-existing hypertension, and he had no other prior medical illnesses. He had smoked in the past, but he quit more than 25 years ago. INTERIM HISTORY: He is seen for a scheduled follow-up visit. He does complain that he is now and then, but he pretty much has normal activity. ECOG score is 0. He has good appetite, and he has gained a little weight. He does not have fever or night sweats. He has not had sore mouth or throat. He does not complain of cough, and he has not been having shortness of breath or chest pain. He has no GI or complaints. He currently has no significant joint or bone pain. He does not complain of headache or dizziness. He has some numbness in his feet and in his left index finger. He does bruise very easily. Medications: Acyclovir 1 (400 mg) Tablet Oral b.i.d., Ixazomib Citrate (4 mg) Capsule Oral Take as Directed, Metoprolol Tartrate 25 mg (of 25 mg) Tablet Oral b.i.d. PRN, Ondansetron HCl 1 (8 mg) Tablet Oral PRN Allergies: Bactrim and revlimid. Vital Signs: Performed on Nov 13, 2021 11:10 Height - 71.00 in Weight - 172.4 lbs (HIGH) BSA - 1.98 sq.m BMI - 24.05 Temperature - 98.3 F (LOW) Pulse - 69 /min Respiration - 16 /min BP - 148/82 mm(hg) (HIGH) O2 Sat - 99 % Pain - 0 Fatigue - 1 Physical Examination: Constitutional - He looks pretty good generally, Eyes - Sclerae nonicteric. Conjunctivae clear, ENMT - No lesions noted in the oral cavity, Hematologic/Lymphatic - No cervical, clavicular, or axillary adenopathy, Respiratory - Lungs sound clear, Cardiovascular - Heart rhythm is regular. There is no murmur, gallop, or rub noted, Abdomen - Soft. Liver and spleen are not enlarged. There is no abdominal mass or ascites noted and there is no inguinal adenopathy, Extremities - No edema. He has chronic purpura, Neurologic - No focal neurologic deficits noted. Lab/Imaging: Test performed on Nov 13, 2021 09:59 Sodium 138 mmol/L Potassium 4.9 mmol/L Chloride 106 mmol/L CO2 22 mmol/L Anion Gap 14.9 BUN 30 mg/dL Creatinine 1.4 mg/dL Cr Clearance (Est) 53.2500 mL/min eGFR 50.5 mL/min Glucose 89 mg/dL Osmolality - Calculated 292 mOsm/kg Calcium 8.9 mg/dL Protein, Total 7.0 g/dL Albumin 4.0 g/dL Globulin 3.0 g/dL Bilirubin, Total 0.3 mg/dL ALT (SGPT) 13 U/L AST (SGOT) 27 U/L Alkaline Phosphatase 92 IU/L WBC 4.3 10 3/uL RBC 3.76 10 6/uL HGB 12.1 g/dL HCT 37.3 % MCV 99.2 fl MCH 32.2 pg MCHC 32.4 g/dL RDW 14.2 % Platelet Count 103 10 3/cmm MPV 11.8 fL Neutrophils 2.79 10 3/uL Lymphocytes 1.0 10 3/uL Monocytes 0.5 10 3/uL Eosinophils 0.1 10 3/uL Basophils 0.0 10 3/uL Neutrophil % 64.9 % Lymphocyte % 23.0 % Monocyte % 10.5 % Eosinophil % 1.2 % Basophils % 0.2 % NRBC % 0 % Problem List: 1. [place] light chain myeloma, stage III, initially diagnosed in April 2016. 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 He also had anemia and impaired renal function. Bone marrow aspiration/biopsy on 05/03/2016 showed 18% plasma cells with trisomy 5 and 13q deletion by FISH. 2. Hypertension. Problems Addressed with this Encounter and Plan: 1. Patient with kappa light chain myeloma, stage III, initially diagnosed in April 2016. 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 He had a good response to initial treatment with high-dose dexamethasone and radiation to the lumbar spine followed by 2 cycles of treatment with cyclophosphamide, Velcade, and dexamethasone followed by 2 additional doses of weekly Velcade, completed on 08/16/2016. He underwent high-dose melphalan/autologous stem cell transplant at [facility] on 09/13/2016. He started maintenance therapy with lenalidomide and dexamethasone in combination with ixazomib in December 2016. He developed significant toxicity with the 1st cycle, and he has since then continued maintenance with ixazomib monotherapy, 4 mg weekly on a 3/4-week schedule. He has had mild some diarrhea with the ixazomib, and he also has some fatigue. Overall, he has been doing well clinically. He tolerates treatment well, and thus far there has been no evidence of recurrence/progression of the myeloma. He has regular follow-up at [facility] at 12-week intervals. He will return here for a followup visit in 6 weeks. 2. He has hypertension. It is being managed adequately with metoprolol at a reduced dosage of 12.5 mg twice daily. Signed By: Oneal Samuel M.D. <<Signature on File>>
== END 2021-11-13 09:29 | disposition home or self-care (01) ==
PROVIDERS: PCP Family Medicine; Visit Provider Internal Medicine Medical Oncology
DX: C90.00 Multiple myeloma not having achieved remission (principal); I10 Essential (primary) hypertension; D64.9 Anemia, unspecified; Z79.899 Other long term (current) drug therapy; Z87.891 Personal history of nicotine dependence
CPT/HCPCS: 36591; 80053; 85025; 99214

== ENCOUNTER 2021-12-03 09:11 | Outpatient (CLI) | payer MEDICARE, OTHER, SELFPAY | END 2021-12-03 09:12 | disposition home or self-care (01) | LOC: ONCMED 09:13 | PROVIDERS: PCP Family Medicine; Visit Provider Internal Medicine Medical Oncology | DX: C90.00 Multiple myeloma not having achieved remission (principal); D64.9 Anemia, unspecified; Z45.2 Encounter for adjustment and management of vascular access device; Z79.899 Other long term (current) drug therapy | CPT/HCPCS: 36593; 96523 ==

== ENCOUNTER 2022-02-04 08:00 | Oncology outpatient (recurring) (ONCR) | payer MEDICARE, OTHER, SELFPAY ==
[2022-02-04 08:26] VITALS: BMI 24.3
[2022-02-04 08:31] LABS: Basophils % 0.3 %; Eosinophils # 0.1 10^3/uL (0.0-0.8); Eosinophils % 1.8 %; Hematocrit 39.1 % (42.0-52.0); Hemoglobin 12.6 g/dL (11.7-16.6); Lymphocytes # 1.3 10^3/uL (0.8-4.8); Lymphocytes % 21.8 %; Mean Corpuscular HGB Conc 32.2 g/dL (30.0-36.0); Mean Corpuscular Hemoglobin 32.7 pg (28.0-34.0); Mean Corpuscular Volume 101.6 fl (80-94); Mean Platelet Volume 10.4 fL (7.4-10.4); Monocytes # 0.7 10^3/uL (0.2-0.9); Monocytes % 11.7 %; Neutrophils # 3.96 10^3/uL (1.8-7.7); Neutrophils % 64.2 %; Nucleated Red Blood Cells % 0 %; Platelet Count 176 10^3/cmm (130-400); Red Blood Count 3.85 10^6/uL (4.1-5.3); Red Cell Distribution Width 15.1 % (12.1-15.1); White Blood Count 6.2 10^3/uL (4.0-10.0)
[2022-02-04 08:42] LABS: Alanine Aminotransferase 9 U/L (0-41); Albumin Level 4.2 g/dL (3.5-5.2); Alkaline Phosphatase 100 IU/L (40-130); Anion Gap 16.2 (5-19); Aspartate Amino Transferase 20 U/L (0-40); Blood Urea Nitrogen 32 mg/dL (8-23); Calcium 8.5 mg/dL (8.5-10.5); Carbon Dioxide 22 mmol/L (22-29); Chloride 105 mmol/L (98-107); Glomerular Filtration Rate 46.7 mL/min (90-130); Glucose 104 mg/dL (65-115); Osmolality Calculated 293 mOsm/kg (285-295); Potassium 5.2 mmol/L (3.5-5.1); Sodium 138 mmol/L (136-145); Total Bilirubin 0.3 mg/dL (0.15-1.2); Total Protein 7.2 g/dL (6.6-8.7)
--- NOTE | 2022-02-04 10:51 | PC.NURSE ---
pt noted to have superficial abrasion to L elbow, skin tear noted. per dr good covered site with telfa and wrapped with coban. pt instructed to cleanse site at home and apply antibiotic ointment then recover. no diffuse bleeding noted.
== END 2022-02-12 23:59 | disposition home or self-care (01) ==
PROVIDERS: PCP Family Medicine; Visit Provider Internal Medicine Medical Oncology
DX: C90.01 Multiple myeloma in remission (principal); C79.51 Secondary malignant neoplasm of bone; D64.9 Anemia, unspecified; N28.9 Disorder of kidney and ureter, unspecified; Z79.52 Long term (current) use of systemic steroids; Z79.899 Other long term (current) drug therapy; Z87.891 Personal history of nicotine dependence
CPT/HCPCS: 36591; 80053; 85025; 99214; 99999

== ENCOUNTER 2022-05-06 11:22 | Oncology outpatient (recurring) (ONCR) | payer MEDICARE, OTHER, SELFPAY ==
[2022-05-06 11:45] VITALS: BMI 24.5
[2022-05-06 11:50] LABS: Basophils % 0.4 %; Eosinophils % 0.7 %; Hematocrit 38.7 % (42.0-52.0); Hemoglobin 13.1 g/dL (11.7-16.6); Lymphocytes # 1.7 10^3/uL (0.8-4.8); Lymphocytes % 30.8 %; Mean Corpuscular HGB Conc 33.9 g/dL (30.0-36.0); Mean Corpuscular Hemoglobin 33.7 pg (28.0-34.0); Mean Corpuscular Volume 99.5 fl (80-94); Mean Platelet Volume 10.6 fL (7.4-10.4); Monocytes # 0.6 10^3/uL (0.2-0.9); Monocytes % 11.4 %; Neutrophils # 3.09 10^3/uL (1.8-7.7); Neutrophils % 56.5 %; Nucleated Red Blood Cells % 0 %; Platelet Count 150 10^3/cmm (130-400); Red Blood Count 3.89 10^6/uL (4.1-5.3); Red Cell Distribution Width 14.3 % (12.1-15.1); White Blood Count 5.5 10^3/uL (4.0-10.0)
[2022-05-06 12:15] LABS: Alanine Aminotransferase 13 U/L (0-41); Albumin Level 4.2 g/dL (3.5-5.2); Alkaline Phosphatase 102 U/L (40-130); Aspartate Amino Transferase 30 U/L (0-40); Blood Urea Nitrogen 28 mg/dL (8-23); Calcium 9.2 mg/dL (8.5-10.5); Carbon Dioxide 23 mmol/L (22-29); Chloride 101 mmol/L (98-107); Globulin 3.3 g/dL (1.3-4.6); Glomerular Filtration Rate 55.1 mL/min (90-130); Glucose 85 mg/dL (65-115); Osmolality Calculated 285 mOsm/kg (285-295); Sodium 135 mmol/L (136-145); Total Bilirubin 0.3 mg/dL (0.15-1.2); Total Protein 7.5 g/dL (6.6-8.7)
[2022-05-06 12:33] LABS: Anion Gap 16.1 (5-19)
[2022-05-06 12:34] LABS: Potassium 5.1 mmol/L (3.5-5.1)
== END 2022-05-15 23:59 | disposition home or self-care (01) ==
LOC: ONCMED 11:22
PROVIDERS: PCP Family Medicine; Visit Provider Internal Medicine Medical Oncology
DX: C90.01 Multiple myeloma in remission (principal); D64.9 Anemia, unspecified; N28.89 Other specified disorders of kidney and ureter; Z79.52 Long term (current) use of systemic steroids; Z79.899 Other long term (current) drug therapy; Z92.21 Personal history of antineoplastic chemotherapy; Z92.3 Personal history of irradiation
CPT/HCPCS: 36591; 80053; 85025; 99214

== ENCOUNTER 2022-06-20 19:10 | Emergency (ER) | payer MEDICARE, OTHER, SELFPAY ==
[2022-06-20 19:48] VITALS: BP 118/74; PULSE 74; RESP 16; TEMP 36.9; O2SAT 99; BMI 24.8
[2022-06-20 23:30] LABS: Basophils % 0.3 %; Eosinophils % 0.3 %; Hematocrit 38.6 % (42.0-52.0); Hemoglobin 12.3 g/dL (11.7-16.6); Lymphocytes # 0.6 10^3/uL (0.8-4.8); Lymphocytes % 15.6 %; Mean Corpuscular HGB Conc 31.9 g/dL (30.0-36.0); Mean Corpuscular Hemoglobin 33.2 pg (28.0-34.0); Mean Platelet Volume 10.1 fL (7.4-10.4); Monocytes # 0.4 10^3/uL (0.2-0.9); Monocytes % 10.1 %; Neutrophils # 2.92 10^3/uL (1.8-7.7); Neutrophils % 73.2 %; Nucleated Red Blood Cells % 0 %; Platelet Count 127 10^3/cmm (130-400); Red Blood Count 3.71 10^6/uL (4.1-5.3); Red Cell Distribution Width 14.6 % (12.1-15.1)
--- NOTE | 2022-06-20 23:34 | ECG_ITS ---
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 Measurements Intervals [place] Rate: 57 P: 41 [place]: 210 QRS: 96 QRSD: 150 T: 45 QT: 426 QTc: 415 Interpretive Statements SINUS BRADYCARDIA WITH FIRST DEGREE AV BLOCK RIGHT BUNDLE BRANCH BLOCK [120+ ms QRS DURATION, UPRIGHT V1, 40+ ms S IN I/aVL/V4/V5/V6] Compared to ECG 10/26/2017 12:07:29 First degree AV block now present Sinus rhythm no longer present Left posterior fascicular block no longer present Electronically Signed On 06-21-2022 14:48:09 CDT by Shar Truong M.D. [id number]
--- NOTE | 2022-06-20 23:41 | ED_ITS ---
HPI - Weakness General: Chief complaint: Weakness Stated complaint: fall/ cancer pt Time Seen by Provider: 06/20/22 23:25 Source: patient Mode of arrival: ambulatory Limitations: no limitations History of Present Illness: 66-year-old male who has a history of multiple myeloma he states he was at a volleyball game tonight states that he started to feel lightheaded he states he had walked outside and felt like he was about to pass out and his legs were not working. He feels like he may have gotten ov erheated he states that this happened earlier in the evening he states he is feeling much improved currently denies any chest pain or headache he is able ambulate without any difficulty now no vomiting no diarrhea. Associated symptoms: Denies chills, dysuria, easy bruising, fever(s), headache(s), nausea or vomiting Review of Systems Const: Denies: fever(s), chills, body aches or change in appetite Eyes: Denies: blurry vision or eye discomfort ENMT: Denies: throat pain or dental pain Card: Reports: lightheadedness Resp: Denies: dyspnea GI: Denies: abdominal pain, nausea, vomiting or diarrhea : Denies: dysuria Musc: Denies: neck pain or back pain Skin/Breast: Denies: rash Neuro: Denies: headache(s) Psych: Denies: depression Aram/Lymph: Denies: easy bruising All/Imm: Denies: urticaria PFSH ED PFSH: Medical History Anemia, unspecified Chronic kidney disease, stage 4 (severe) Hypertension Multiple myeloma in remission Surgical History H/O stem cell transplant (09/13/16) History of cataract surgery Port-A-Cath in place Family History Mother Clotting disorder CAD (coronary artery disease) Hypertension Father Stroke Denies family history of Diabetes Dementia Hyperlipidemia Psychiatric illness Chronic kidney disease (CKD) Suicide Anesthesia complication Bleeding disorder Lung disease Cancer Social History Smoking and tobacco status: former smoker Alcohol intake: never Physical Exam Const: COMMON NORMALS: no acute distress, patient oriented x3 and healthy appearing HENMT: COMMON NORMALS: normocephalic and atraumatic HEAD & SCALP: normocephalic and atraumatic Eye: COMMON NORMALS: Equal, round and reactive pupils present and EOMs intact bilaterally PUPIL: Yes Equal, round and reactive pupils present Neck/C-Spine: COMMON NORMALS: full ROM and supple Chest: COMMONS NORMALS: normal inspection of the chest and normal palpation of entire chest wall Resp: COMMON NORMALS: normal respiratory effort, No retractions, No use of accessory muscles and clear to auscultation bilaterally AUSCULTATION: clear to auscultation bilaterally Cardio: COMMON NORMALS: regular rate, regular rhythm and No murmurs present (Cardio) RATE: regular rate RHYTHM: regular rhythm GI: COMMON NORMALS: Normal to inspection, nondistended, normoactive bowel sounds present, Soft to palpation, non-tender and no masses PALPATION: Yes Soft to palpation Extremity: COMMON NORMALS: normal to inspection and full ROM Neuro: COMMON NORMALS: patient oriented x3, moves all extremities and no focal motor deficits Psych: COMMON NORMALS: mental status grossly normal, Normal thought process present and cooperative THOUGHT PROCESS: Normal thought process present Skin: COMMON NORMALS: no rashes or lesions noted and no wounds GENERAL SKIN EXAM: no rashes or lesions noted Course Vital Signs: Vital signs: Vital Signs Temperature 98.5 F 06/20/22 19:48 Pulse Rate 74 06/20/22 19:48 Respiratory Rate 16 06/20/22 19:48 Blood Pressure 118/74 06/20/22 19:48 Pulse Oximetry 99 06/20/22 19:48 Oxygen Delivery Me thod 06/20/22 19:48 MDM - Weakness Medical Decision Making Patient presents here with generalized weakness likely from overdoing it and getting hot at a volleyball game he is feeling improved here his blood work is normal his vital signs of been normal I feel he is stable for discharge she is to follow-up his PCP and return if worsening. Lab Data : 06/20/22 23:23 06/20/22 23:23 Laboratory Results WBC 4.0 10^3/uL (4.0-10.0) 06/20/22 23:23 RBC 3.71 10^6/uL (4.1-5.3) L 06/20/22 23:23 Hgb 12.3 g/dL (11.7-16.6) 06/20/22 23: Hct 38.6 % (42.0-52.0) L 06/20/22 23: MCV 104.0 fl (80-94) H 06/20/22 23:23 MCH 33.2 pg (28.0-34.0) 06/20/22 23: MCHC 31.9 g/dL (30.0-36.0) 06/20/22 23: RDW 14.6 % (12.1-15.1) 06/20/22 23: Plt Count 127 10^3/cmm (130-400) L 06/20/22 23: MPV 10.1 fL (7.4-10.4) 06/20/22 23: Neut % (Auto) 73.2 % 06/20/22 23: Lymph % (Auto) 15.6 % 06/20/22 23: [place] % (Auto) 10.1 % 06/20/22 23: Eos % (Auto) 0.3 % 06/20/22 23: Baso % (Auto) 0.3 % 06/20/22 23: Neut # (Auto) 2.92 10^3/uL (1.8-7.7) 06/20/22 23: Lymph # (Auto) 0.6 10^3/uL (0.8-4.8) L 06/20/22 23: [place] # (Auto) 0.4 10^3/uL (0.2-0.9) 06/20/22 23: Eos # (Auto) 0.0 10^3/uL (0.0-0.8) 06/20/22 23:23 Baso # (Auto) 0.0 10^3/uL (0.0-0.1) 06/20/22 23: Nucleated RBC % (auto) 0 % 06/20/22 23: Nucleated RBCs # 0.0 /100WBC 06/20/22 23:23 Sodium 131 mmol/L (136-145) L 06/20/22 23: Potassium 4.8 mmol/L (3.5-5.1) 06/20/22 23:23 Chloride 99 mmol/L (98-107) 06/20/22 23:23 Carbon Dioxide 20 mmol/L (22-29) L 06/20/22 23:23 Anion Gap 16.8 (5-19) 06/20/22 23:23 BUN 28 mg/dL (8-23) H 06/20/22 23:23 Creatinine 1.5 mg/dL (0.7-1.2) H 06/20/22 23:23 GFR Calculation 46.7 mL/min (90-130) L 06/20/22 23:23 Glucose 101 mg/dL (65-115) 06/20/22 23:23 Calculated Osmolality 278 mOsm/kg (285-295) L 06/20/22 23:23 Calcium 9.2 mg/dL (8.5-10.5) 06/20/22 23:23 Total Bilirubin 0.3 mg/dL (0.15-1.2) 06/20/22 23:23 AST 25 U/L (0-40) 06/20/22 23:23 ALT 10 U/L (0-41) 06/20/22 23:23 Alkaline Phosphatase 79 U/L (40-130) 06/20/22 23:23 Total Protein 7.5 g/dL (6.6-8.7) 06/20/22 23:23 Albumin 3.7 g/dL (3.5-5.2) 06/20/22 23:23 Globulin 3.8 g/dL (1.3-4.6) 06/20/22 23:23 Discharge Plan Discharge Patient Disposition: Home Clinical Impression: Weakness, Light headed Condition: Stable Prescriptions: No Action Ixazomib citrate See Rx Instructions PO .COMPLEX Rx Instructions: PO every three weeks; metoprolol tartrate 25 mg tablet 25 mg PO DAILY Qty: 90 0RF acyclovir 400 mg tablet 400 mg PO BID Qty: 180 0RF ondansetron HCl 4 mg tablet 4 - 8 mg PO TID Qty: 120 0RF Discharge Orders: Discharge ED (Routine); Ordered 06/21/22 Ordered By: Heaven Brown Referrals: Jeremiah Hicks DO [Primary Care Provider] - Discharge Diet: Advance as tolerated Discharge Activity: Resume usual activity Patient Instructions: Weakness (ED) Coding Level of Care Code ED Filling Machine Operator for Chg Fwd Exam Comprehensive
[2022-06-20 23:42] LABS: Alanine Aminotransferase 10 U/L (0-41); Albumin Level 3.7 g/dL (3.5-5.2); Alkaline Phosphatase 79 U/L (40-130); Blood Urea Nitrogen 28 mg/dL (8-23); Calcium 9.2 mg/dL (8.5-10.5); Carbon Dioxide 20 mmol/L (22-29); Chloride 99 mmol/L (98-107); Globulin 3.8 g/dL (1.3-4.6); Glomerular Filtration Rate 46.7 mL/min (90-130); Glucose 101 mg/dL (65-115); Osmolality Calculated 278 mOsm/kg (285-295); Sodium 131 mmol/L (136-145); Total Bilirubin 0.3 mg/dL (0.15-1.2); Total Protein 7.5 g/dL (6.6-8.7)
[2022-06-20 23:44] LABS: Anion Gap 16.8 (5-19)
[2022-06-20 23:45] LABS: Aspartate Amino Transferase 25 U/L (0-40); Potassium 4.8 mmol/L (3.5-5.1)
[2022-06-21 00:08] VITALS: BP 115/67; PULSE 74; RESP 18; O2SAT 98
[2022-06-21] MEDS: lactated ringers 1,000 ML 999 ML IV (00:12)
[2022-06-21 00:30] VITALS: BP 115/64; PULSE 58; RESP 16; O2SAT 98
[2022-06-21 01:00] VITALS: BP 120/62; PULSE 58; RESP 19; O2SAT 98
[2022-06-21 01:04] LABS: Add Urine Microscopic? YES; Bilirubin Urine Neg (Negative); Blood Urine Neg (Negative); Glucose Urine UA Norm (Normal); Ketones Urine Negative (Negative); Leukocyte Esterase Urine Negative (Negative); Nitrate Urine Negative (Negative); Protein Urine Trace (Negative); Urine Appearance Clear (CLEAR); Urine Color Yellow (Yellow); Urobilinogen Urine Norm (Negative); pH Urine 5 (5-7)
[2022-06-21 01:05] LABS: Add Urine Culture? No; Amorphous Sediment Urine 1+ /hpf; Mucus Urine 1+ /hpf; Squamous Epithelial Cell Urine 0-4 /hpf (0-5)
== END 2022-06-21 01:34 | disposition home or self-care (01) ==
PROVIDERS: Emergency Provider Emergency Medicine; PCP Family Medicine
DX: R53.1 Weakness (principal); R42 Dizziness and giddiness; I12.9 Hypertensive chronic kidney disease with stage 1 through stage 4 chronic kidney disease, or unspecified chronic kidney disease; N18.4 Chronic kidney disease, stage 4 (severe); Z85.89 Personal history of malignant neoplasm of other organs and systems; Z94.84 Stem cells transplant status; Z87.891 Personal history of nicotine dependence
CPT/HCPCS: 80053; 81001; 85025; 93005; 99284

== ENCOUNTER 2022-08-05 13:36 | Oncology outpatient (recurring) (ONCR) | payer MEDICARE, OTHER, SELFPAY ==
[2022-08-05 14:26] LABS: Basophils % 0.4 %; Eosinophils % 1.5 %; Hematocrit 35.8 % (42.0-52.0); Lymphocytes # 0.7 10^3/uL (0.8-4.8); Lymphocytes % 25.9 %; Mean Corpuscular HGB Conc 33.5 g/dL (30.0-36.0); Mean Corpuscular Hemoglobin 32.6 pg (28.0-34.0); Mean Corpuscular Volume 97.3 fl (80-94); Mean Platelet Volume 11.5 fL (7.4-10.4); Monocytes # 0.4 10^3/uL (0.2-0.9); Monocytes % 13.3 %; Neutrophils # 1.57 10^3/uL (1.8-7.7); Neutrophils % 58.2 %; Nucleated Red Blood Cells % 0 %; Platelet Count 48 10^3/cmm (130-400); Red Blood Count 3.68 10^6/uL (4.1-5.3); Red Cell Distribution Width 14.5 % (12.1-15.1); White Blood Count 2.7 10^3/uL (4.0-10.0)
[2022-08-05 14:28] LABS: Slide Review Slide Review Perform
[2022-08-05 14:43] LABS: Alanine Aminotransferase 10 U/L (0-41); Albumin Level 3.6 g/dL (3.5-5.2); Alkaline Phosphatase 87 U/L (40-130); Anion Gap 13.3 (5-19); Aspartate Amino Transferase 23 U/L (0-40); Blood Urea Nitrogen 32 mg/dL (8-23); Calcium 8.8 mg/dL (8.5-10.5); Carbon Dioxide 23 mmol/L (22-29); Chloride 104 mmol/L (98-107); Globulin 3.5 g/dL (1.3-4.6); Glomerular Filtration Rate 54.9 mL/min (90-130); Glucose 124 mg/dL (65-115); Osmolality Calculated 290 mOsm/kg (285-295); Potassium 4.3 mmol/L (3.5-5.1); Sodium 136 mmol/L (136-145); Total Bilirubin 0.2 mg/dL (0.15-1.2); Total Protein 7.1 g/dL (6.6-8.7)
== END 2022-08-14 23:59 | disposition home or self-care (01) ==
PROVIDERS: PCP Family Medicine; Visit Provider Internal Medicine Medical Oncology
DX: C90.01 Multiple myeloma in remission (principal); D64.9 Anemia, unspecified; N28.89 Other specified disorders of kidney and ureter; R11.0 Nausea; R19.7 Diarrhea, unspecified; E86.0 Dehydration; D70.1 Agranulocytosis secondary to cancer chemotherapy; T45.1X5A Adverse effect of antineoplastic and immunosuppressive drugs, initial encounter; D69.59 Other secondary thrombocytopenia; Z79.52 Long term (current) use of systemic steroids; Z79.899 Other long term (current) drug therapy
CPT/HCPCS: 36591; 80053; 85025; 99214

== ENCOUNTER 2022-10-30 08:00 | Oncology outpatient (recurring) (ONCR) | payer MEDICARE, OTHER, SELFPAY ==
[2022-10-30 08:25] LABS: Basophils % 0.3 %; Eosinophils # 0.1 10^3/uL (0.0-0.8); Eosinophils % 1.2 %; Hematocrit 37.4 % (42.0-52.0); Hemoglobin 12.2 g/dL (11.7-16.6); Lymphocytes % 16.8 %; Mean Corpuscular HGB Conc 32.6 g/dL (30.0-36.0); Mean Corpuscular Hemoglobin 32.4 pg (28.0-34.0); Mean Corpuscular Volume 99.2 fl (80-94); Mean Platelet Volume 11.2 fL (7.4-10.4); Monocytes # 0.4 10^3/uL (0.2-0.9); Monocytes % 7.4 %; Nucleated Red Blood Cells % 0 %; Platelet Count 122 10^3/cmm (130-400); Red Blood Count 3.77 10^6/uL (4.1-5.3); Red Cell Distribution Width 14.8 % (12.1-15.1); White Blood Count 5.8 10^3/uL (4.0-10.0)
[2022-10-30 09:01] LABS: Alanine Aminotransferase 11 U/L (0-41); Alkaline Phosphatase 88 U/L (40-130); Anion Gap 15.8 (5-19); Aspartate Amino Transferase 26 U/L (0-40); Blood Urea Nitrogen 27 mg/dL (8-23); Calcium 8.4 mg/dL (8.5-10.5); Carbon Dioxide 23 mmol/L (22-29); Chloride 104 mmol/L (98-107); Glomerular Filtration Rate 46.5 mL/min (90-130); Glucose 84 mg/dL (65-115); Osmolality Calculated 290 mOsm/kg (285-295); Potassium 4.8 mmol/L (3.5-5.1); Sodium 138 mmol/L (136-145); Total Bilirubin 0.4 mg/dL (0.15-1.2)
== END 2022-11-12 23:59 | disposition home or self-care (01) ==
PROVIDERS: PCP Family Medicine; Visit Provider Internal Medicine Medical Oncology
DX: C90.01 Multiple myeloma in remission (principal); D64.9 Anemia, unspecified; N28.89 Other specified disorders of kidney and ureter; R11.0 Nausea; R19.7 Diarrhea, unspecified; Z79.52 Long term (current) use of systemic steroids; Z79.899 Other long term (current) drug therapy; Z92.21 Personal history of antineoplastic chemotherapy; Z92.3 Personal history of irradiation
CPT/HCPCS: 80053; 85025; 99214

== ENCOUNTER 2023-01-29 11:10 | Oncology outpatient (recurring) (ONCR) | payer MEDICARE, OTHER, SELFPAY ==
[2023-01-29 11:38] VITALS: BP 123/74; PULSE 67; RESP 16; TEMP 36.6; O2SAT 99
[2023-01-29 11:55] LABS: Basophils % 0.4 %; Eosinophils # 0.1 10^3/uL (0.0-0.8); Eosinophils % 0.7 %; Hematocrit 36.8 % (42.0-52.0); Lymphocytes # 1.3 10^3/uL (0.8-4.8); Lymphocytes % 17.7 %; Mean Corpuscular HGB Conc 32.6 g/dL (30.0-36.0); Mean Corpuscular Hemoglobin 32.3 pg (28.0-34.0); Mean Corpuscular Volume 99.2 fl (80-94); Mean Platelet Volume 11.2 fL (7.4-10.4); Monocytes # 0.6 10^3/uL (0.2-0.9); Monocytes % 8.4 %; Neutrophils # 5.27 10^3/uL (1.8-7.7); Neutrophils % 72.5 %; Nucleated Red Blood Cells % 0 %; Platelet Count 147 10^3/cmm (130-400); Red Blood Count 3.71 10^6/uL (4.1-5.3); Red Cell Distribution Width 15.5 % (12.1-15.1); White Blood Count 7.3 10^3/uL (4.0-10.0)
[2023-01-29 12:20] LABS: Alanine Aminotransferase 11 U/L (0-41); Albumin Level 3.8 g/dL (3.5-5.2); Alkaline Phosphatase 103 U/L (40-130); Aspartate Amino Transferase 23 U/L (0-40); Blood Urea Nitrogen 25 mg/dL (8-23); Calcium 8.7 mg/dL (8.5-10.5); Carbon Dioxide 22 mmol/L (22-29); Chloride 105 mmol/L (98-107); Globulin 3.3 g/dL (1.3-4.6); Glomerular Filtration Rate 46.5 mL/min (90-130); Glucose 107 mg/dL (65-115); Osmolality Calculated 293 mOsm/kg (285-295); Sodium 139 mmol/L (136-145); Total Bilirubin 0.3 mg/dL (0.15-1.2); Total Protein 7.1 g/dL (6.6-8.7)
[2023-01-29 12:23] LABS: Anion Gap 17.2 (5-19); Potassium 5.2 mmol/L (3.5-5.1)
== END 2023-02-12 23:59 | disposition home or self-care (01) ==
PROVIDERS: PCP Family Medicine; Visit Provider Internal Medicine Medical Oncology
DX: C90.01 Multiple myeloma in remission (principal); R11.0 Nausea; R19.7 Diarrhea, unspecified; Z79.52 Long term (current) use of systemic steroids; Z79.899 Other long term (current) drug therapy; Z92.21 Personal history of antineoplastic chemotherapy; Z92.3 Personal history of irradiation; Z95.828 Presence of other vascular implants and grafts
CPT/HCPCS: 80053; 85025; 99214

== ENCOUNTER 2023-02-19 07:55 | Oncology outpatient (recurring) (ONCR) | payer MEDICARE, OTHER, SELFPAY ==
[2023-02-19 08:07] VITALS: BP 134/84; PULSE 61; RESP 18; TEMP 36.1; O2SAT 97
== END 2023-03-14 23:59 | disposition home or self-care (01) ==
PROVIDERS: PCP Family Medicine; Visit Provider Internal Medicine Medical Oncology
DX: Z45.2 Encounter for adjustment and management of vascular access device (principal)
CPT/HCPCS: 96523; J1642

== ENCOUNTER 2023-04-23 07:12 | Oncology outpatient (recurring) (ONCR) | payer MEDICARE, OTHER, SELFPAY ==
[2023-04-23 07:15] VITALS: BP 119/81; PULSE 60; RESP 18; TEMP 36.2; O2SAT 100
[2023-04-23 07:27] VITALS: BMI 24.2
[2023-04-23 07:57] LABS: Basophils % 0.5 %; Eosinophils # 0.1 10^3/uL (0.0-0.8); Eosinophils % 1.6 %; Hematocrit 39.2 % (42.0-52.0); Hemoglobin 12.9 g/dL (11.7-16.6); Lymphocytes # 1.5 10^3/uL (0.8-4.8); Mean Corpuscular HGB Conc 32.9 g/dL (30.0-36.0); Mean Corpuscular Hemoglobin 33.1 pg (28.0-34.0); Mean Corpuscular Volume 100.5 fl (80-94); Mean Platelet Volume 10.7 fL (7.4-10.4); Monocytes # 0.6 10^3/uL (0.2-0.9); Monocytes % 8.6 %; Neutrophils # 4.14 10^3/uL (1.8-7.7); Nucleated Red Blood Cells % 0 %; Platelet Count 155 10^3/cmm (130-400); Red Cell Distribution Width 14.5 % (12.1-15.1); White Blood Count 6.4 10^3/uL (4.0-10.0)
[2023-04-23 08:22] LABS: Alanine Aminotransferase 11 U/L (0-41); Alkaline Phosphatase 108 U/L (40-130); Blood Urea Nitrogen 30 mg/dL (8-23); Calcium 8.6 mg/dL (8.5-10.5); Carbon Dioxide 23 mmol/L (22-29); Chloride 106 mmol/L (98-107); Globulin 3.2 g/dL (1.3-4.6); Glomerular Filtration Rate 40.3 mL/min (90-130); Glucose 88 mg/dL (65-115); Osmolality Calculated 292 mOsm/kg (285-295); Sodium 138 mmol/L (136-145); Total Bilirubin 0.3 mg/dL (0.15-1.2); Total Protein 7.2 g/dL (6.6-8.7)
[2023-04-23 08:35] LABS: Aspartate Amino Transferase 21 U/L (0-40)
[2023-07-16 14:33] LABS: Basophils % 0.3 %; Eosinophils # 0.1 10^3/uL (0.0-0.8); Eosinophils % 0.9 %; Hematocrit 37.3 % (37-53); Lymphocytes # 0.6 10^3/uL (0.8-4.8); Lymphocytes % 9.4 %; Mean Corpuscular HGB Conc 32.2 g/dL (30-55); Mean Corpuscular Hemoglobin 32.2 pg (27-33); Mean Platelet Volume 11.6 fL (7.4-10.4); Monocytes # 0.4 10^3/uL (0.2-0.9); Monocytes % 5.7 %; Neutrophils # 5.66 10^3/uL (1.8-7.7); Nucleated Red Blood Cells % 0 %; Platelet Count 81 10^3/cmm (157-399); Red Blood Count 3.73 10^6/uL (3.85-5.65); Red Cell Distribution Width 14.9 % (12.1-15.1); White Blood Count 6.82 10^3/uL (3.29-11.43)
[2023-07-16 14:49] LABS: Alanine Aminotransferase 18 U/L (0-41); Albumin Level 3.9 g/dL (3.5-5.2); Alkaline Phosphatase 91 U/L (40-130); Aspartate Amino Transferase 38 U/L (0-40); Blood Urea Nitrogen 34 mg/dL (8-23); Carbon Dioxide 23 mmol/L (22-29); Chloride 102 mmol/L (98-107); Globulin 3.1 g/dL (1.3-4.6); Glomerular Filtration Rate 50.2 mL/min (90-130); Glucose 108 mg/dL (65-115); Osmolality Calculated 288 mOsm/kg (285-295); Sodium 135 mmol/L (136-145); Total Bilirubin 0.2 mg/dL (0.15-1.2)
== END 2023-05-15 23:59 | disposition home or self-care (01) ==
PROVIDERS: Nurse Practitioner; PCP Family Medicine; Visit Provider Internal Medicine Medical Oncology
DX: C90.01 Multiple myeloma in remission (principal); D64.9 Anemia, unspecified; N28.89 Other specified disorders of kidney and ureter; R11.0 Nausea; R19.7 Diarrhea, unspecified; Z79.52 Long term (current) use of systemic steroids; Z79.899 Other long term (current) drug therapy; Z92.21 Personal history of antineoplastic chemotherapy; Z92.3 Personal history of irradiation
CPT/HCPCS: 36591; 80053; 85025; 99214; J1642

== ENCOUNTER 2023-08-13 12:15 | Oncology outpatient (recurring) (ONCR) | payer MEDICARE, OTHER, SELFPAY ==
[2023-07-16 14:04] VITALS: BP 131/79; PULSE 60; RESP 16; TEMP 36.4; O2SAT 99
[2023-07-16] MEDS: alteplase 1 mg/mL SDV 2 mL 2 MG INTRACATH (14:29)
[2023-08-13 11:58] VITALS: BP 118/74; PULSE 71; RESP 16; TEMP 36.6; O2SAT 99
[2023-08-13 12:27] LABS: Basophils % 0.4 %; Eosinophils % 0.8 %; Hematocrit 34.7 % (37-53); Lymphocytes # 0.7 10^3/uL (0.8-4.8); Lymphocytes % 14.9 %; Mean Corpuscular HGB Conc 32.6 g/dL (30-55); Mean Corpuscular Hemoglobin 32.1 pg (27-33); Mean Corpuscular Volume 98.6 fl (82-101); Mean Platelet Volume 12.4 fL (7.4-10.4); Monocytes # 0.5 10^3/uL (0.2-0.9); Monocytes % 9.5 %; Neutrophils # 3.54 10^3/uL (1.8-7.7); Neutrophils % 73.4 %; Nucleated Red Blood Cells % 0 %; Platelet Count 81 10^3/cmm (157-399); Red Blood Count 3.52 10^6/uL (3.85-5.65); Red Cell Distribution Width 15.7 % (12.1-15.1); White Blood Count 4.83 10^3/uL (3.29-11.43)
[2023-08-13 13:08] LABS: Alanine Aminotransferase 13 U/L (0-41); Albumin Level 3.8 g/dL (3.5-5.2); Alkaline Phosphatase 88 U/L (40-130); Anion Gap 16.7 (5-19); Aspartate Amino Transferase 28 U/L (0-40); Blood Urea Nitrogen 30 mg/dL (8-23); Calcium 8.5 mg/dL (8.5-10.5); Carbon Dioxide 21 mmol/L (22-29); Chloride 105 mmol/L (98-107); Glomerular Filtration Rate 43.1 mL/min (90-130); Glucose 103 mg/dL (65-115); Osmolality Calculated 292 mOsm/kg (285-295); Potassium 4.7 mmol/L (3.5-5.1); Sodium 138 mmol/L (136-145); Total Bilirubin 0.3 mg/dL (0.15-1.2); Total Protein 6.8 g/dL (6.6-8.7)
== END 2023-08-14 23:59 | disposition home or self-care (01) ==
PROVIDERS: Nurse Practitioner Family; PCP Family Medicine; Visit Provider Internal Medicine Medical Oncology
DX: C90.01 Multiple myeloma in remission (principal); Z79.899 Other long term (current) drug therapy
CPT/HCPCS: 36415; 36591; 80053; 85025; 99213; 99214; J1642; J2997

== ENCOUNTER → 2023-09-22 08:50 | Outpatient (BNVA) | payer MEDICARE, OTHER, SELFPAY | PROVIDERS: PCP Family Medicine; Visit Provider Family Medicine | DX: I10 Essential (primary) hypertension (principal); R73.9 Hyperglycemia, unspecified; C90.01 Multiple myeloma in remission | CPT/HCPCS: 80053; 80061; 83036; 83550; 85025 ==

== ENCOUNTER 2023-10-08 13:10 | Oncology outpatient (recurring) (ONCR) | payer MEDICARE, OTHER, SELFPAY ==
[2023-10-08 13:16] VITALS: BP 122/75; PULSE 76; RESP 16; TEMP 36.4; O2SAT 98; BMI 23.6
[2023-10-08 13:48] LABS: Basophils % 0.3 %; Eosinophils # 0.1 10^3/uL (0.0-0.8); Eosinophils % 0.9 %; Lymphocytes # 1.9 10^3/uL (0.8-4.8); Lymphocytes % 25.4 %; Mean Corpuscular HGB Conc 33.2 g/dL (30-55); Mean Corpuscular Hemoglobin 32.7 pg (27-33); Mean Corpuscular Volume 98.4 fl (82-101); Monocytes # 0.6 10^3/uL (0.2-0.9); Monocytes % 7.7 %; Neutrophils # 4.92 10^3/uL (1.8-7.7); Neutrophils % 65.3 %; Nucleated Red Blood Cells % 0 %; Platelet Count 144 10^3/cmm (157-399); Red Blood Count 3.76 10^6/uL (3.85-5.65); Red Cell Distribution Width 15.6 % (12.1-15.1); White Blood Count 7.53 10^3/uL (3.29-11.43)
[2023-10-08] MEDS: alteplase 1 mg/mL SDV 2 mL 2 MG INTRACATH (13:50)
[2023-10-08 14:04] LABS: Alanine Aminotransferase 15 U/L (0-41); Albumin Level 3.8 g/dL (3.5-5.2); Alkaline Phosphatase 90 U/L (40-130); Anion Gap 15.1 (5-19); Aspartate Amino Transferase 24 U/L (0-40); Blood Urea Nitrogen 34 mg/dL (8-23); Calcium 8.8 mg/dL (8.5-10.5); Carbon Dioxide 22 mmol/L (22-29); Chloride 105 mmol/L (98-107); Globulin 3.3 g/dL (1.3-4.6); Glomerular Filtration Rate 46.4 mL/min (90-130); Glucose 94 mg/dL (65-115); Osmolality Calculated 291 mOsm/kg (285-295); Potassium 5.1 mmol/L (3.5-5.1); Sodium 137 mmol/L (136-145); Total Bilirubin 0.3 mg/dL (0.15-1.2); Total Protein 7.1 g/dL (6.6-8.7)
== END 2023-10-15 23:59 | disposition home or self-care (01) ==
PROVIDERS: Internal Medicine; PCP Family Medicine; Visit Provider Internal Medicine Medical Oncology
DX: C90.01 Multiple myeloma in remission (principal); D64.9 Anemia, unspecified; N28.89 Other specified disorders of kidney and ureter; R11.0 Nausea; R19.7 Diarrhea, unspecified; Z79.52 Long term (current) use of systemic steroids; Z79.899 Other long term (current) drug therapy; Z92.21 Personal history of antineoplastic chemotherapy; Z92.3 Personal history of irradiation; E86.0 Dehydration; D70.1 Agranulocytosis secondary to cancer chemotherapy; T45.1X5A Adverse effect of antineoplastic and immunosuppressive drugs, initial encounter; D69.59 Other secondary thrombocytopenia
CPT/HCPCS: 36415; 80053; 85025; 99214; J1642; J2997

== ENCOUNTER 2023-12-31 14:30 | Oncology outpatient (recurring) (ONCR) | payer MEDICARE, OTHER, SELFPAY ==
[2023-12-30 14:06] LABS: Basophils % 0.6 %; Eosinophils # 0.1 10^3/uL (0.0-0.8); Eosinophils % 1.4 %; Lymphocytes # 1.9 10^3/uL (0.8-4.8); Mean Corpuscular Hemoglobin 32.8 pg (27-33); Mean Corpuscular Volume 99.5 fl (82-101); Mean Platelet Volume 10.5 fL (7.4-10.4); Monocytes # 0.6 10^3/uL (0.2-0.9); Monocytes % 8.8 %; Neutrophils # 4.28 10^3/uL (1.8-7.7); Neutrophils % 62.1 %; Nucleated Red Blood Cells % 0 %; Platelet Count 158 10^3/cmm (157-399); Red Blood Count 3.72 10^6/uL (3.85-5.65)
[2023-12-30 14:29] LABS: Alanine Aminotransferase 13 U/L (0-41); Albumin Level 3.9 g/dL (3.5-5.2); Alkaline Phosphatase 114 U/L (40-130); Anion Gap 14.5 (5-19); Aspartate Amino Transferase 24 U/L (0-40); Blood Urea Nitrogen 35 mg/dL (8-23); Calcium 8.9 mg/dL (8.5-10.5); Carbon Dioxide 23 mmol/L (22-29); Chloride 106 mmol/L (98-107); Globulin 3.6 g/dL (1.3-4.6); Glomerular Filtration Rate 46.4 mL/min (90-130); Glucose 102 mg/dL (65-115); Lactate Dehydrogenase 210 U/L (135-225); Osmolality Calculated 294 mOsm/kg (285-295); Potassium 5.5 mmol/L (3.5-5.1); Sodium 138 mmol/L (136-145); Total Bilirubin 0.2 mg/dL (0.15-1.2); Total Protein 7.5 g/dL (6.6-8.7)
== END 2024-01-13 23:59 | disposition home or self-care (01) ==
PROVIDERS: Internal Medicine; PCP Family Medicine; Visit Provider Internal Medicine Medical Oncology
DX: Z53.9 Procedure and treatment not carried out, unspecified reason (principal)
CPT/HCPCS: 36591; 80053; 83615; 85025; 99213; J1642

== ENCOUNTER 2024-03-29 10:49 | Oncology outpatient (recurring) (ONCR) | payer MEDICARE, OTHER, SELFPAY ==
[2024-03-29 11:17] LABS: Basophils % 0.6 %; Eosinophils # 0.1 10^3/uL (0.0-0.8); Eosinophils % 0.9 %; Hematocrit 38.4 % (37-53); Lymphocytes # 1.5 10^3/uL (0.8-4.8); Mean Corpuscular HGB Conc 33.3 g/dL (30-55); Mean Corpuscular Hemoglobin 33.5 pg (27-33); Mean Corpuscular Volume 100.5 fl (82-101); Mean Platelet Volume 10.9 fL (7.4-10.4); Monocytes # 0.5 10^3/uL (0.2-0.9); Monocytes % 9.6 %; Neutrophils # 3.17 10^3/uL (1.8-7.7); Neutrophils % 59.7 %; Nucleated Red Blood Cells % 0 %; Platelet Count 150 10^3/cmm (157-399); Red Blood Count 3.82 10^6/uL (3.85-5.65); Red Cell Distribution Width 14.9 % (12.1-15.1); White Blood Count 5.31 10^3/uL (3.29-11.43)
[2024-03-29] MEDS: alteplase 1 mg/mL SDV 2 mL 2 MG INTRACATH (11:41)
[2024-03-29 11:50] LABS: Alanine Aminotransferase 16 U/L (0-41); Alkaline Phosphatase 101 U/L (40-130); Anion Gap 16.9 (5-19); Aspartate Amino Transferase 29 U/L (0-40); Blood Urea Nitrogen 38 mg/dL (8-23); Calcium 8.7 mg/dL (8.5-10.5); Carbon Dioxide 20 mmol/L (22-29); Chloride 103 mmol/L (98-107); Globulin 3.5 g/dL (1.3-4.6); Glomerular Filtration Rate 46.4 mL/min (90-130); Glucose 91 mg/dL (65-115); Osmolality Calculated 289 mOsm/kg (285-295); Potassium 4.9 mmol/L (3.5-5.1); Prostate Specific Antigen Scr 0.79 ng/mL (0-4); Sodium 135 mmol/L (136-145); Total Bilirubin 0.3 mg/dL (0.15-1.2); Total Protein 7.5 g/dL (6.6-8.7)
== END 2024-04-14 23:59 | disposition home or self-care (01) ==
PROVIDERS: Nurse Practitioner Family; PCP Family Medicine; Visit Provider Internal Medicine Medical Oncology
DX: Z53.9 Procedure and treatment not carried out, unspecified reason (principal); C90.01 Multiple myeloma in remission; C79.51 Secondary malignant neoplasm of bone; Z12.5 Encounter for screening for malignant neoplasm of prostate; Z79.899 Other long term (current) drug therapy; Z79.52 Long term (current) use of systemic steroids
CPT/HCPCS: 36415; 36593; 80053; 85025; 99214; G0103; J2997

== ENCOUNTER 2024-05-31 13:30 | Oncology outpatient (recurring) (ONCR) | payer MEDICARE, OTHER, SELFPAY | END 2024-06-14 23:59 | disposition home or self-care (01) | LOC: ONCMED 13:32 | PROVIDERS: PCP Family Medicine; Visit Provider Internal Medicine Medical Oncology | DX: Z45.2 Encounter for adjustment and management of vascular access device | CPT/HCPCS: 96523 ==

== ENCOUNTER 2024-07-12 07:45 | Oncology outpatient (recurring) (ONCR) | payer MEDICARE, OTHER, SELFPAY ==
[2024-06-21 12:50] LABS: Basophils % 0.4 %; Eosinophils # 0.1 10^3/uL (0.0-0.8); Eosinophils % 1.9 %; Hematocrit 35.6 % (37-53); Lymphocytes # 0.7 10^3/uL (0.8-4.8); Lymphocytes % 26.1 %; Mean Corpuscular HGB Conc 32.6 g/dL (30-55); Mean Corpuscular Hemoglobin 33.1 pg (27-33); Mean Corpuscular Volume 101.7 fl (82-101); Mean Platelet Volume 11.5 fL (7.4-10.4); Monocytes # 0.3 10^3/uL (0.2-0.9); Monocytes % 10.1 %; Neutrophils # 1.58 10^3/uL (1.8-7.7); Neutrophils % 61.5 %; Nucleated Red Blood Cells % 0 %; Platelet Count 72 10^3/cmm (157-399); White Blood Count 2.57 10^3/uL (3.29-11.43)
[2024-06-21 13:11] LABS: Alanine Aminotransferase 9 U/L (0-41); Albumin Level 3.6 g/dL (3.5-5.2); Alkaline Phosphatase 96 U/L (40-130); Anion Gap 11.3 (5-19); Aspartate Amino Transferase 24 U/L (0-40); Blood Urea Nitrogen 29 mg/dL (8-23); Calcium 8.2 mg/dL (8.5-10.5); Carbon Dioxide 23 mmol/L (22-29); Chloride 106 mmol/L (98-107); Globulin 3.2 g/dL (1.3-4.6); Glomerular Filtration Rate 43.1 mL/min (90-130); Glucose 111 mg/dL (65-115); Osmolality Calculated 289 mOsm/kg (285-295); Potassium 4.3 mmol/L (3.5-5.1); Sodium 136 mmol/L (136-145); Total Bilirubin 0.2 mg/dL (0.15-1.2); Total Protein 6.8 g/dL (6.6-8.7)
== END 2024-07-15 23:59 | disposition home or self-care (01) ==
PROVIDERS: Nurse Practitioner Family; PCP Family Medicine; Visit Provider Internal Medicine Hematology & Oncology
DX: Z53.9 Procedure and treatment not carried out, unspecified reason (principal); Z45.2 Encounter for adjustment and management of vascular access device
CPT/HCPCS: 36591; 80053; 85025; 96523; 99214

== ENCOUNTER 2024-08-16 07:42 | Oncology outpatient (recurring) (ONCR) | payer MEDICARE, OTHER, SELFPAY | END 2024-09-14 23:59 | disposition home or self-care (01) | PROVIDERS: PCP Family Medicine; Visit Provider Internal Medicine Medical Oncology | DX: C79.51 Secondary malignant neoplasm of bone; Z45.2 Encounter for adjustment and management of vascular access device | CPT/HCPCS: 96523 ==

== ENCOUNTER 2024-09-20 11:17 | Oncology outpatient (recurring) (ONCR) | payer MEDICARE, OTHER, SELFPAY ==
[2024-09-20] MEDS: alteplase 1 mg/mL SDV 2 mL 2 MG INTRACATH (11:34)
[2024-09-20 12:08] LABS: Basophils % 0.5 %; Eosinophils # 0.1 10^3/uL (0.0-0.8); Eosinophils % 1.7 %; Hematocrit 37.1 % (37-53); Lymphocytes # 1.8 10^3/uL (0.8-4.8); Lymphocytes % 27.8 %; Mean Corpuscular HGB Conc 32.1 g/dL (30-55); Mean Corpuscular Volume 99.7 fl (82-101); Mean Platelet Volume 10.8 fL (7.4-10.4); Monocytes # 0.9 10^3/uL (0.2-0.9); Monocytes % 13.7 %; Neutrophils # 3.53 10^3/uL (1.8-7.7); Nucleated Red Blood Cells % 0 %; Platelet Count 173 10^3/cmm (157-399); Red Blood Count 3.72 10^6/uL (3.85-5.65); Red Cell Distribution Width 15.7 % (12.1-15.1)
[2024-09-20 12:29] LABS: Alanine Aminotransferase 12 U/L (0-41); Albumin Level 3.9 g/dL (3.5-5.2); Alkaline Phosphatase 113 U/L (40-130); Anion Gap 18.1 (5-19); Aspartate Amino Transferase 27 U/L (0-40); Blood Urea Nitrogen 33 mg/dL (8-23); Calcium 8.9 mg/dL (8.5-10.5); Carbon Dioxide 22 mmol/L (22-29); Chloride 102 mmol/L (98-107); Globulin 3.5 g/dL (1.3-4.6); Glomerular Filtration Rate 46.3 mL/min (90-130); Glucose 92 mg/dL (65-115); Immunoglobulin IGA 173 mg/dL (70-400); Immunoglobulin IGG 1501 mg/dL (700-1600); Immunoglobulin IGM 70 mg/dL (40-230); Osmolality Calculated 291 mOsm/kg (285-295); Potassium 5.1 mmol/L (3.5-5.1); Sodium 137 mmol/L (136-145); Total Bilirubin 0.3 mg/dL (0.15-1.2); Total Protein 7.4 g/dL (6.6-8.7)
[2024-09-21 08:24] LABS: PROTEIN, TOTAL 7.2 g/dL (6.1-8.1)
[2024-09-22 09:04] LABS: ALBUMIN 3.9 g/dL (3.8-4.8); ALPHA 1 GLOBULIN 0.3 g/dL (0.2-0.3); ALPHA 2 GLOBULIN 0.8 g/dL (0.5-0.9); BETA 1 GLOBULIN 0.4 g/dL (0.4-0.6); BETA 2 GLOBULIN 0.4 g/dL (0.2-0.5); GAMMA GLOBULIN 1.4 g/dL (0.8-1.7)
[2024-09-22 11:40] LABS: KAPPA LIGHT CHAIN, FREE, SERUM 60.1 mg/L (3.3-19.4); KAPPA/LAMBDA LIGHT CHAINS FREE 1.94 (0.26-1.65); LAMBDA LIGHT CHAIN, FREE, SERU 30.9 mg/L (5.7-26.3)
[2024-09-23 18:49] LABS: Immunofixation Serum Normal pattern.
== END 2024-10-15 23:59 | disposition home or self-care (01) ==
PROVIDERS: Internal Medicine Hematology & Oncology; PCP Family Medicine; Visit Provider Internal Medicine Medical Oncology
DX: C90.00 Multiple myeloma not having achieved remission (principal); C79.51 Secondary malignant neoplasm of bone; Z95.828 Presence of other vascular implants and grafts; Z79.899 Other long term (current) drug therapy
CPT/HCPCS: 36415; 80053; 82784; 83883; 84155; 84165; 85025; 86334; 99214; J2997

== ENCOUNTER 2024-12-13 08:45 | Oncology outpatient (recurring) (ONCR) | payer MEDICARE, OTHER, SELFPAY ==
[2024-12-13 09:05] LABS: Basophils % 0.5 %; Eosinophils # 0.1 10^3/uL (0.0-0.8); Eosinophils % 1.3 %; Lymphocytes # 1.2 10^3/uL (0.8-4.8); Lymphocytes % 19.7 %; Mean Corpuscular Hemoglobin 31.9 pg (27-33); Mean Corpuscular Volume 99.7 fl (82-101); Mean Platelet Volume 10.3 fL (7.4-10.4); Monocytes # 0.9 10^3/uL (0.2-0.9); Neutrophils # 3.91 10^3/uL (1.8-7.7); Neutrophils % 64.3 %; Nucleated Red Blood Cells % 0 %; Platelet Count 145 10^3/cmm (157-399); Red Blood Count 3.51 10^6/uL (3.85-5.65); Red Cell Distribution Width 15.1 % (12.1-15.1); White Blood Count 6.08 10^3/uL (3.29-11.43)
[2024-12-13 09:18] LABS: Alanine Aminotransferase 11 U/L (0-41); Albumin Level 3.9 g/dL (3.5-5.2); Alkaline Phosphatase 92 U/L (40-130); Anion Gap 15.8 (5-19); Aspartate Amino Transferase 24 U/L (0-40); Blood Urea Nitrogen 27 mg/dL (8-23); Calcium 8.8 mg/dL (8.5-10.5); Carbon Dioxide 24 mmol/L (22-29); Chloride 103 mmol/L (98-107); Globulin 3.4 g/dL (1.3-4.6); Glomerular Filtration Rate 42.9 mL/min (90-130); Glucose 85 mg/dL (65-115); Osmolality Calculated 290 mOsm/kg (285-295); Potassium 4.8 mmol/L (3.5-5.1); Sodium 138 mmol/L (136-145); Total Bilirubin 0.4 mg/dL (0.15-1.2); Total Protein 7.3 g/dL (6.6-8.7)
== END 2024-12-13 23:59 | disposition home or self-care (01) ==
PROVIDERS: PCP Family Medicine; Visit Provider Internal Medicine Medical Oncology
DX: C90.00 Multiple myeloma not having achieved remission (principal); C79.51 Secondary malignant neoplasm of bone; Z95.828 Presence of other vascular implants and grafts; Z79.899 Other long term (current) drug therapy; Z94.84 Stem cells transplant status; D64.9 Anemia, unspecified
CPT/HCPCS: 36591; 80053; 85025; 99214

== ENCOUNTER 2025-03-08 11:01 | Oncology outpatient (recurring) (ONCR) | payer MEDICARE, OTHER, SELFPAY ==
[2025-03-08 11:32] LABS: Basophils % 0.6 %; Eosinophils # 0.1 10^3/uL (0.0-0.8); Hematocrit 28.5 % (37-53); Lymphocytes # 4.4 10^3/uL (0.8-4.8); Lymphocytes % 60.9 %; Mean Corpuscular HGB Conc 32.3 g/dL (30-55); Mean Corpuscular Hemoglobin 33.9 pg (27-33); Mean Corpuscular Volume 105.2 fl (82-101); Mean Platelet Volume 10.4 fL (7.4-10.4); Monocytes # 0.6 10^3/uL (0.2-0.9); Monocytes % 7.7 %; Neutrophils # 2.15 10^3/uL (1.8-7.7); Neutrophils % 29.7 %; Nucleated Red Blood Cells % 0 %; Platelet Count 142 10^3/cmm (157-399); Red Blood Count 2.71 10^6/uL (3.85-5.65); Red Cell Distribution Width 18.6 % (12.1-15.1); White Blood Count 7.23 10^3/uL (3.29-11.43)
[2025-03-08 11:52] LABS: Alanine Aminotransferase 14 U/L (0-41); Albumin Level 3.7 g/dL (3.5-5.2); Alkaline Phosphatase 106 U/L (40-130); Anion Gap 15.7 (5-19); Aspartate Amino Transferase 32 U/L (0-40); Blood Urea Nitrogen 33 mg/dL (8-23); Calcium 9.1 mg/dL (8.5-10.5); Carbon Dioxide 25 mmol/L (22-29); Chloride 101 mmol/L (98-107); Globulin 3.8 g/dL (1.3-4.6); Glomerular Filtration Rate 42.9 mL/min (90-130); Glucose 110 mg/dL (65-115); Osmolality Calculated 292 mOsm/kg (285-295); Potassium 4.7 mmol/L (3.5-5.1); Sodium 137 mmol/L (136-145); Total Bilirubin 0.6 mg/dL (0.15-1.2); Total Protein 7.5 g/dL (6.6-8.7)
== END 2025-03-14 23:59 | disposition home or self-care (01) ==
PROVIDERS: Internal Medicine Medical Oncology; PCP Family Medicine; Visit Provider Internal Medicine
DX: C90.00 Multiple myeloma not having achieved remission (principal); C79.51 Secondary malignant neoplasm of bone; Z95.828 Presence of other vascular implants and grafts; Z79.899 Other long term (current) drug therapy; I10 Essential (primary) hypertension
CPT/HCPCS: 36591; 80053; 85025; 96523; 99213

== ENCOUNTER 2025-05-12 08:53 | Oncology outpatient (recurring) (ONCR) | payer MEDICARE, OTHER, SELFPAY ==
[2025-05-12 09:20] LABS: Hematocrit 33.8 % (37-53); Hemoglobin 10.90 g/dL (11.27-16.99); Mean Corpuscular HGB Conc 32.2 g/dL (30-55); Mean Corpuscular Hemoglobin 33.6 pg (27-33); Mean Corpuscular Volume 104.3 fl (82-101); Nucleated Red Blood Cells % 0 %; Platelet Count 107 10^3/cmm (157-399); Red Blood Count 3.24 10^6/uL (3.85-5.65); White Blood Count 6.01 10^3/uL (3.29-11.43)
[2025-05-12 09:37] LABS: Alanine Aminotransferase 9 U/L (0-41); Albumin Level 4.0 g/dL (3.5-5.2); Alkaline Phosphatase 105 U/L (40-130); Anion Gap 18.2 (5-19); Aspartate Amino Transferase 23 U/L (0-40); Blood Urea Nitrogen 36 mg/dL (8-23); Calcium 9.2 mg/dL (8.5-10.5); Carbon Dioxide 19 mmol/L (22-29); Chloride 102 mmol/L (98-107); Creatinine Clr Calc Pharmacy 36.7097; Globulin 4.0 g/dL (1.3-4.6); Glucose 126 mg/dL (65-115); Osmolality Calculated 288 mOsm/kg (285-295); Potassium 5.2 mmol/L (3.5-5.1); Sodium 134 mmol/L (136-145); Total Protein 8.0 g/dL (6.6-8.7)
== END 2025-05-15 23:59 | disposition home or self-care (01) ==
PROVIDERS: PCP Family Medicine; Visit Provider Internal Medicine
DX: C90.00 Multiple myeloma not having achieved remission (principal); C79.51 Secondary malignant neoplasm of bone; Z95.828 Presence of other vascular implants and grafts; Z79.899 Other long term (current) drug therapy
CPT/HCPCS: 36591; 80053; 83615; 85025

== ENCOUNTER 2025-08-04 08:44 | Oncology outpatient (recurring) (ONCR) | payer MEDICARE, OTHER, SELFPAY ==
[2025-08-04 09:03] LABS: Hematocrit 28.7 % (37-53); Hemoglobin 9.50 g/dL (11.27-16.99); Mean Corpuscular HGB Conc 33.1 g/dL (30-55); Mean Corpuscular Hemoglobin 33.8 pg (27-33); Mean Corpuscular Volume 102.1 fl (82-101); Nucleated Red Blood Cells % 0 %; Platelet Count 81 10^3/cmm (157-399); Red Blood Count 2.81 10^6/uL (3.85-5.65); White Blood Count 4.99 10^3/uL (3.29-11.43)
[2025-08-04 09:42] LABS: Alanine Aminotransferase 8 U/L (0-41); Albumin Level 4.0 g/dL (3.5-5.2); Alkaline Phosphatase 82 U/L (40-130); Anion Gap 13.7 (5-19); Aspartate Amino Transferase 24 U/L (0-40); Blood Urea Nitrogen 30 mg/dL (8-23); Calcium 8.7 mg/dL (8.5-10.5); Carbon Dioxide 21 mmol/L (22-29); Chloride 106 mmol/L (98-107); Globulin 3.1 g/dL (1.3-4.6); Glucose 80 mg/dL (65-115); Osmolality Calculated 287 mOsm/kg (285-295); Potassium 4.7 mmol/L (3.5-5.1); Sodium 136 mmol/L (136-145); Total Protein 7.1 g/dL (6.6-8.7)
== END 2025-08-14 23:59 | disposition home or self-care (01) ==
LOC: ONCMED 08:44
PROVIDERS: Internal Medicine Medical Oncology; PCP Family Medicine; Visit Provider Internal Medicine
DX: C90.00 Multiple myeloma not having achieved remission (principal); C79.51 Secondary malignant neoplasm of bone; Z95.828 Presence of other vascular implants and grafts; Z79.899 Other long term (current) drug therapy
CPT/HCPCS: 36591; 80053; 85025; 99213